=== PATIENT | female | born 1935 | race Caucasian/White ===

== ENCOUNTER → 2017-10-05 | Outpatient (CLI) | payer OTHER | LOC: FIMAGING 14:54 | PROVIDERS: ATTEND Internal Medicine | DX: I70.202 Unspecified atherosclerosis of native arteries of extremities, left leg (principal); E11.9 Type 2 diabetes mellitus without complications ==

== ENCOUNTER 2017-10-24 11:01 | Observation (INO) | payer OTHER ==
[2017-10-24] MEDS ORDERED: diphenhydrAMINE 25 MG CAP PO ONE (11:32)
[2017-10-24] MEDS ORDERED: GLUCAGON HCL 1 MG VIAL IVP PRN (11:48)
[2017-10-24] MEDS ORDERED: PROTAMINE SULFATE 50 MG/5 ML VIAL IVP PRN (11:48)
[2017-10-24] MEDS ORDERED: MEPERIDINE 25 MG/ML SYR IVP PRN (11:48)
[2017-10-24] MEDS ORDERED: NALOXONE HCL 0.4 MG/ML INJ IVP PRN (11:48)
[2017-10-24] MEDS ORDERED: ALTEPLASE 2 MG VIAL IVP PRN (11:48)
[2017-10-24] MEDS ORDERED: FLUMAZENIL 0.5 MG/5 ML MDV IVP PRN (11:48)
[2017-10-24] MEDS ORDERED: HEPARIN 10,000 UNIT/10 ML MDV (1,000 UNIT/ML) IVP PRN (11:48)
[2017-10-24] MEDS ORDERED: MIDAZOLAM 2 MG/2 ML VIAL IVP PRN (11:48)
[2017-10-24] MEDS ORDERED: fentaNYL 100 MCG/2 ML INJ IVP PRN (11:48)
[2017-10-24 12:00] LABS: INR 1.11 (0.83-1.16); PROTIME(PATIENT) 14.5 SEC (12.0-15.0)
[2017-10-24] MEDS ORDERED: NS 1,000 ML IV SCH (12:00)
[2017-10-24] MEDS ORDERED: ONDANSETRON 4 MG/2 ML VIAL ONE (12:33)
[2017-10-24] MEDS ORDERED: IOPAMIDOL (ISOVUE-300) 100 ML BTL ONE ×2 (12:48→14:16)
--- NOTE | 2017-10-24 13:05 | PDPROPOC ---
Sedation Plan of Care Sedation Plan of Care: vital signs stable, mental status noted, patient educated of risks, benefits, alternatives, patient can tolerate sedation ASA Classification: ASA 3 Planned drugs: fentanyl, midazolam Mallampati Score: Class 2 Mallampati Reference Image: Patient passed 3-3-2 rule?: Yes
--- NOTE | 2017-10-24 13:10 | PDGENHP ---
History & Physical Chief Complaint: LLE SORE AND POOR CAPILLARY REFILL History of Present Illness: US DOPPLER SHOWS MULTILEVEL STRICTURES IN LT SFA. DECENT RUNOFF. NON-HEALING ULCER. ISCHEMIC LOOKING TOES. Pertinent Past, Social, Family History: TYPE II DM. BILATERAL KNEE REPLACEMENT. HYSTERECTOMY. CHOLECYSTECTOMY. Relevant Physical Exam: ULCER AT LT LATERAL HEEL. POOR CAP REFILL. Cardiorespiratory Assessment: RRR. CTA
[2017-10-24] MEDS ORDERED: HEPARIN 10,000 UNIT/10 ML MDV (1,000 UNIT/ML) ONE (14:35)
[2017-10-24] MEDS ORDERED: ALTEPLASE 2 MG VIAL ONE ×2 (14:45→14:51)
[2017-10-24] MEDS ORDERED: ABCIXIMAB 10 MG/5 ML VIAL ONE (14:46)
[2017-10-24] MEDS ORDERED: ONDANSETRON 4 MG/2 ML VIAL IVP PRN (15:15)
[2017-10-24] MEDS ORDERED: OXYCODONE/APAP 5/325 TAB PO PRN (15:15)
--- NOTE | 2017-10-24 15:36 | PDRADPN ---
Radiology Procedure Note Date of Procedure: 10/24/17 Radiologist: Eveline Sosa Anesthesia: IV Sedation Pre-op Diagnosis: LLE ULCERS Post-op Diagnosis: SAME, PVD Indication: ULCERS Procedure: LLE ANGIOGRAM, ANGIOPLASTY, TPA, REOPRO Finding(s): VERY POOR RUNOFF VIA COLLATERALS ONLY. CRITICAL STENOSIS INVOLVING ONLY COLLATERAL VESSEL THAT'S KEEPING HER FOOT ALIVE. Inf/Abcess present in the surg proc area at time of surgery?: No Complications: NONE
[2017-10-24] MEDS ORDERED: CLOPIDOGREL BISULFATE 75 MG TAB PO ONE (18:12)
--- NOTE | 2017-10-24 18:12 | SOAPPROG ---
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 RT GROIN HEMATOMA FROM MULTIPLE BLOOD THINNERS GIVEN DURING PROCEDURE. HEMATOMA STABLE, BUT PATIENT HAS MODERATE PAIN. Plan: ADMIT TO OBS FOR RT GROIN PAIN AND HEMATOMA. 10/24/17 18:11 Subjective: RT GROIN TENDERNESS AND GUARDING. Objective: Vital Signs Temp Pulse Resp BP Pulse Ox 99.0 C H 89 12 138/51 H 100 10/24/17 11:51 10/24/17 11:51 10/24/17 11:51 10/24/17 15:16 10/24/17 15:16 Laboratory Results 10/24/17 11:42 10/24/17 11:42 10/23/17 10/24/17 10/25/17 05:59 05:59 05:59 Intake Total 525 Balance 525 PT 14.5 SEC (12.0-15.0) 10/24/17 11:42 INR 1.11 (0.83-1.16) 10/24/17 11:42 FEM STOP OFF NO EXPANDING HEMATOMA, BUT SIGNIFICANT TENDERNESS. PULSES UNCHANGED. ICD10 Worksheet Patient Problems: Problems Problem Status Onset Peripheral vascular disease due to secondary diabetes Acute Peripheral vascular disease of extremity with claudication Acute
[2017-10-25 08:26] VITALS: BP 149/56; PULSE 61; RESP 16; TEMP 98.1; O2SAT 99
[2017-10-25] MEDS ORDERED: CLOPIDOGREL BISULFATE 75 MG TAB PO SCH (09:00)
--- NOTE | 2017-10-25 09:17 | SOAPPROG ---
SOAP Progress Note Assessment/Plan: Assessment: 82 FEMALE WITH RT FOOT ISCHEMIA AND LIMITING CLAUDICATION/ SEEN AFTER IR ANGIOPLASTY FOOT VIABLE BUT WITH DEPENDENT RUBOR, NO PALPABLE PEDAL PULSES ON RT BUT EXCELLENT PULSES ON LEFT ANGIO SHOWS VERY MINIMAL RUNOFF FOR LIMB SALVAGE BYPASS PT AWARE THAT AMPUTATION MAY BECOME NECESSARY Plan:EVAL FOR FEM-TIB 10/25/17 09:13 Objective: Vital Signs Temp Pulse Resp BP Pulse Ox 36.7 C 61 16 149/56 H 99 10/25/17 08:00 10/25/17 08:00 10/25/17 08:00 10/25/17 08:00 10/25/17 08:00 Laboratory Results 10/24/17 11:42 10/24/17 11:42 10/24/17 10/25/17 10/26/17 05:59 05:59 05:59 Intake Total 825 Output Total 600 Balance 225 PT 14.5 SEC (12.0-15.0) 10/24/17 11:42 INR 1.11 (0.83-1.16) 10/24/17 11:42 ICD10 Worksheet Patient Problems: Problems Problem Status Onset Peripheral vascular disease due to secondary diabetes Acute Peripheral vascular disease of extremity with claudication Acute
--- NOTE | 2017-10-25 10:12 | SOAPPROG ---
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 RT GROIN HEMATOMA FROM MULTIPLE BLOOD THINNERS GIVEN DURING PROCEDURE. HEMATOMA STABLE, BUT PATIENT HAS MODERATE PAIN. Plan: ADMIT TO OBS FOR RT GROIN PAIN AND HEMATOMA. 10/24/17 18:11 10/25/17 10:11 Challenging and high risk PVD anatomy, doing well post angioplasty. RT groin with bruising. No bulging hematoma or enlarging hematoma. Stable to D/C home today. Subjective: No complaints this morning. Has been walking about to bathroom with no significant pain. Patient is very pleased at how her foot looks and feels. Objective: Vital Signs Temp Pulse Resp BP Pulse Ox 36.7 C 61 16 149/56 H 99 10/25/17 08:00 10/25/17 08:00 10/25/17 08:00 10/25/17 08:00 10/25/17 08:00 Laboratory Results 10/24/17 11:42 10/24/17 11:42 10/24/17 10/25/17 10/26/17 05:59 05:59 05:59 Intake Total 825 Output Total 600 Balance 225 PT 14.5 SEC (12.0-15.0) 10/24/17 11:42 INR 1.11 (0.83-1.16) 10/24/17 11:42 RT groin bruising extends to pubic symphysis, but none down the leg; no bulging hematoma. No pulsatile mass. Mild pain on palpation, within normal limits. I suspect the original "hematoma" was much smaller than previously thought. LT foot color now the same as RT foot. Near complete resolution of ischemic findings. - Pending Discharge Pending Discharge Within 24 Hours: Yes Pending Discharge Date: 10/26/17 Pending Discharge Time: 11:00 ICD10 Worksheet Patient Problems: Problems Problem Status Onset Peripheral vascular disease due to secondary diabetes Acute Peripheral vascular disease of extremity with claudication Acute
== END 2017-10-25 12:00 | disposition home or self-care (01) ==
LOC: FIMAGING 11:01 → F3N 18:05
PROVIDERS: ADMIT Radiology Diagnostic Radiology; ATTEND Radiology Diagnostic Radiology
PROC: 047N3Z1 Dilation of Left Popliteal Artery using Drug-Coated Balloon, Percutaneous Approach (ICD-10-PCS; principal; 2017-10-24)
PROC: 047L3Z1 Dilation of Left Femoral Artery using Drug-Coated Balloon, Percutaneous Approach (ICD-10-PCS; principal; 2017-10-24)
DX: I77.1 Stricture of artery (principal); E11.51 Type 2 diabetes mellitus with diabetic peripheral angiopathy without gangrene; I74.3 Embolism and thrombosis of arteries of the lower extremities
CPT/HCPCS: 37224; 75710; 99152; 99153; C1725; C1760; C1769; C1892; J0130; J1644; J2250; J2405; J2997; J3010; Q9967; J2310

== ENCOUNTER → 2017-11-11 | Outpatient (CLI) | payer OTHER | LOC: FIMAGING 10:41 | PROVIDERS: ATTEND Surgery | DX: I73.9 Peripheral vascular disease, unspecified (principal) ==

== ENCOUNTER 2017-12-30 05:28 | Inpatient (IN) | payer OTHER ==
[2017-12-30] MEDS ORDERED: CLINDAMYCIN 900 MG/DEXTROSE 50 ML IV ONE (05:52)
[2017-12-30] MEDS ORDERED: LR 1,000 ML IV ONE (05:53)
[2017-12-30] MEDS ORDERED: PAPAVERINE HCL 60 MG/2 ML SDV ONE (06:44)
[2017-12-30] MEDS ORDERED: BUPIVACAINE 0.5% 30 ML SDV ONE (06:44)
[2017-12-30] MEDS ORDERED: PROTAMINE SULFATE 50 MG/5 ML VIAL IVP ONE (06:44)
[2017-12-30] MEDS ORDERED: IOTHALAMATE MEG (CONRAY) 50 ML VIAL IV ONE (06:44)
[2017-12-30] MEDS ORDERED: CLINDAMYCIN 900 MG/DEXTROSE/50 ML BAG IV ONE (06:59)
--- NOTE | 2017-12-30 07:12 | PDHPUP ---
History & Physical Update H&P update statement: This history and physical update is based on an assessment of the patient which was completed after admission or registration (within 24 hours), but prior to the surgery/procedure. H&P update: H&P reviewed & patient examined, no change in patient's condition since H&P completed
--- NOTE | 2017-12-30 07:28 | PDANEPAE ---
ANE Past Medical History - Cardiovascular History Hx Hypertension: Yes Hx Arrhythmias: No Hx Chest Pain: No Hx Coronary Artery / Peripheral Vascular Disease: No Hx CHF / Valvular Disease: No Hx Palpitations: No - Pulmonary History Hx COPD: No Hx Asthma/Reactive Airway Disease: No Hx Recent Upper Respiratory Infection: No Hx Oxygen in Use at Home: No Hx Sleep Apnea: No Sleep Apnea Screening Result - Last Documented: Negative Pulmonary History Comment: "sinus infection -all the time" - Neurologic History Hx Cerebrovascular Accident: No Hx Seizures: No Hx Dementia: No - Endocrine History Hx Diabetes: Yes Endocrine History Comment: IDDM type 2. BS runs 89-120- diet control. - Renal History Hx Renal Disorders: Yes Renal History Comment: hx of UTI's - none recent - Liver History Hx Hepatic Disorders: No - Neurological & Psychiatric Hx Hx Neurological and Psychiatric Disorders: No - Cancer History Hx Cancer: No - Congenital Disorder History Hx Congenital Disorders: No - GI History Hx Gastrointestinal Disorders: Yes Gastrointestinal History Comment: HIATAL HERNIA - Other Health History Other Health History: L leg stricture of artery- causes pain in L ft/L toes ( spasms). Bruises easily-on Plavix. non-healing sore on L heel. - Chronic Pain History Chronic Pain: Yes (L ft/L toes) - Surgical History Prior Surgeries: L leg angioplasty Dr Sosa 10-24-17;. Bilat total knees. Appy. Sherita. Neck cysts x2 excised. hammer toes -bilat ft. VIDAL,BSO. T and A age 4 ANE Review of Systems Review of Systems: - Exercise capacity METS (RN): 4 METS ANE Patient History - Allergies Allergies/Adverse Reactions: amoxicillin Allergy (Verified 12/27/17 14:43) Vomiting iodine Allergy (Verified 12/27/17 14:43) Other-Enter Comments metformin Allergy (Verified 12/27/17 14:43) Vomiting nitrofurantoin [From Macrodantin] Allergy (Verified 12/27/17 14:43) Vomiting Sulfa (Sulfonamide Antibiotics) Allergy (Verified 12/27/17 14:06) Vomiting - Home Medications Home Medications: Cholecalciferol Vit D3 [Vitamin D3 (*)] 1,000 units PO DAILY 10/24/17 [Last Taken 12/26/17] Insulin Glargine,Hum.rec.anlog [Lantus Solostar] 20 units SC DAILY@1400 [Last Taken 12/29/17 20 UNITS] Levothyroxine Sodium 75 mcg PO DAILY 10/24/17 [Last Taken 12/30/17] Losartan Potassium 100 mg PO DAILY 10/24/17 [Last Taken 12/30/17] Vit C/E/Zn/Coppr/Lutein/Zeaxan [Ocuvite Lutein & Zeaxanthin Cp] 1 each PO DAILY 10/24/17 [Last Taken 12/26/17] Omeprazole 40 mg PO DAILY PRN 12/26/17 [Last Taken 12/29/17] Pravastatin Sodium 40 mg PO DAILY 12/26/17 [Last Taken 12/26/17] - NPO status NPO Since - Liquids (Date): 12/30/17 NPO Since - Liquids (Time): 04:15 NPO Since - Solids (Date): 12/29/17 NPO Since - Solids (Time): 16:00 - Anes Hx Anes Hx: post operative nausea and vomiting - Smoking Hx Smoking Status: Never smoked - Family Anes Hx Family Hx Anesthesia Complications: NONE ANE Labs/Vital Signs - Labs Result Diagrams: 12/30/17 06:28 - Vital Signs Blood Pressure: 138/81 Heart Rate: 69 Respiratory Rate: 16 O2 Sat (%): 96 Height: 148.59 cm Weight: 60.328 kg ANE Physical Exam - Airway Neck exam: FROM Mallampati Score: Class 2 Mouth exam: dentures - Pulmonary Pulmonary: no respiratory distress, no rales or rhonchi, clear to auscultation - Cardiovascular Cardiovascular: regular rate and rhythym, no murmur, rub, or gallop ANE Anesthesia Plan Anesthesia Plan: spinal
[2017-12-30] MEDS ORDERED: PROPOFOL 200 MG/20 ML VIAL ONE ×4 (07:30→11:21)
[2017-12-30] MEDS ORDERED: ONDANSETRON 4 MG/2 ML VIAL ONE (07:37)
[2017-12-30] MEDS ORDERED: LIDOCAINE 2% 5 ML SDV ONE (07:37)
[2017-12-30] MEDS ORDERED: DEXMEDETOMIDINE IN 0.9 % NACL 100 ML IV ONE (08:30)
[2017-12-30] MEDS ORDERED: PHENYLEPHRINE HCL 100 MCG/ML SYR ONE ×2 (08:41→10:46)
[2017-12-30] MEDS ORDERED: LIDOCAINE 2% JELLY 5 ML TUBE ONE (08:54)
[2017-12-30] MEDS ORDERED: GLYCOPYRROLATE 0.2 MG/1 ML VIAL ONE ×2 (09:00→09:14)
[2017-12-30] MEDS ORDERED: epHEDrine SULFATE 10 MG/ML SYR ONE (09:16)
[2017-12-30] MEDS ORDERED: HEPARIN 10,000 UNIT/10 ML MDV (1,000 UNIT/ML) ONE (09:55)
[2017-12-30] MEDS ORDERED: THROMBIN (BOVINE) 20,000 UNIT SPRAY TP ONE (11:27)
[2017-12-30] MEDS ORDERED: fentaNYL 100 MCG/2 ML INJ IVP PRN (11:39)
[2017-12-30] MEDS ORDERED: ACETAMINOPHEN 500 MG TAB PO PRN (11:39)
[2017-12-30] MEDS ORDERED: HYDROCODONE/APAP 5/325 TAB PO PRN (11:39)
[2017-12-30] MEDS ORDERED: LR 500 ML IV PRN (11:39)
[2017-12-30] MEDS ORDERED: PROMETHAZINE HCL 25 MG/ML INJ IVP PRN ×2 (11:39→21:51)
[2017-12-30] MEDS ORDERED: ONDANSETRON 4 MG/2 ML VIAL IVP PRN (11:39)
[2017-12-30] MEDS ORDERED: ENALAPRILAT DIHYDRATE 1.25 MG/ML VIAL IVP PRN (11:39)
[2017-12-30] MEDS ORDERED: NALOXONE HCL 0.4 MG/ML INJ IVP PRN (11:39)
--- NOTE | 2017-12-30 12:24 | POSTANESTH ---
Post Anesthetic Evaluation Cardiovascular Status: Normal, Stable Respiratory Status: Normal, Stable, Similar to Pre-op Cond. Level of Consciousness/Mental Status: Can Participate in Eval, Alert and Oriented Pain Control: Adequate, Prn Tx Ordered Nausea/Vomiting Control: Adequate, Prn Tx Ordered Complications Possibly Related to Anesthesia: None Noted
[2017-12-30] MEDS ORDERED: ACETAMINOPHEN 325 MG TAB PO PRN (12:28)
[2017-12-30] MEDS ORDERED: fentaNYL 100 MCG/2 ML INJ ONE (12:35)
--- NOTE | 2017-12-30 12:38 | POSTOPPROG ---
Post Op Note Date of Operation: 12/30/17 Surgeon: Favian Schumacher Spray Painter Helper: Ellis Anesthesiologist: Aliya Anesthesia: Spinal Pre-op Diagnosis: Peripheral vascular disease Post-op Diagnosis: same Indication: Nonhealing ulcer on left heel Procedure: Fem-tib bypass graft with combo saphenous vein and gortex graft Findings: Small, but viable posterior tibial artery Inf/Abcess present in the surg proc area at time of surgery?: No Depth: Deep Incisional (Fascial) EBL: 50-100
--- NOTE | 2017-12-30 14:37 | PDMN ---
Medical Necessity Medical necessity: [facility] IP only surgery; [id number] Cardiovascular [id number] Bypass
[2017-12-30] MEDS: HYDROmorphone HCL/NS 0.5 MG/ML SYR IVP PRN ×3 (15:05→20:17)
[2017-12-30] MEDS ORDERED: NON-FORMULARY NEW DRUG (Omeprazole [Omeprazole] 40 MG) PO PRN (17:22)
[2017-12-30] MEDS ORDERED: PANTOPRAZOLE SODIUM 40 MG TAB PO PRN (17:30)
[2017-12-30] MEDS: CLOPIDOGREL BISULFATE 75 MG TAB PO SCH (20:17)
[2017-12-30] MEDS: ONDANSETRON 4 MG/2 ML VIAL IVP PRN (20:17)
[2017-12-30] MEDS: NS 1,000 ML IV SCH (22:04)
[2017-12-31] MEDS: HYDROmorphone HCL/NS 0.5 MG/ML SYR IVP PRN ×6 (00:10→23:57)
[2017-12-31] MEDS: LEVOTHYROXINE 75 MCG TAB PO SCH (05:43)
[2017-12-31] MEDS ORDERED: NON-FORMULARY NEW DRUG (Losartan Potassium [Losartan Potassium] 100 MG) PO SCH (09:00)
[2017-12-31] MEDS: CLOPIDOGREL BISULFATE 75 MG TAB PO SCH (09:44)
[2017-12-31] MEDS: PRAVASTATIN SODIUM 40 MG TAB PO SCH (09:44)
[2017-12-31] MEDS: LOSARTAN POTASSIUM 50 MG TAB PO SCH (09:52)
[2017-12-31] MEDS: APIXABAN 5 MG TAB PO SCH ×2 (09:53→20:56)
--- NOTE | 2017-12-31 11:18 | SOAPPROG ---
SOAP Progress Note Assessment/Plan: Assessment: 82 y/o female with PVD s/p L fem/tib bypass graft 12/30 S: Pain controlled. Had some vomiting last night which is now resolved. O: Alert Afebrile RRR No increase WOB LLE: dressings cdi. Faint graft pulse heard on doppler. Left foot noticeably cooler to touch than right foot. Plan: Graft with faint pulse on doppler. Still in early stages after surgery and a chance that graft will fail. Ok to get out of bed and bear weight on LLE today. Do not bend leg at knee. Plavix started yesterday, Eliquis started today. D/c mariana. Seen with Dr. Robb. 12/31/17 11:14 Objective: Vital Signs Temp Pulse Resp BP Pulse Ox 37.4 C 84 18 153/56 H 96 12/31/17 07:37 12/31/17 07:37 12/31/17 07:37 12/31/17 09:52 12/31/17 07:37 Laboratory Results 12/30/17 06:28 12/30/17 12/31/17 01/01/18 05:59 05:59 05:59 Intake Total 2275 Output Total 2925 Balance -650 ICD10 Worksheet Patient Problems: Problems Problem Status Onset Peripheral vascular disease due to secondary diabetes Acute Peripheral vascular disease of extremity with claudication Acute
[2017-12-31] MEDS: INSULIN GLARGINE 100 UNITS/ML UNIT SC SCH (13:51)
[2017-12-31] MEDS ORDERED: INSULIN GLARGINE HUM REC ANLOG 20 UNIT SC SCH (14:00)
--- NOTE | 2017-12-31 15:58 | ASMTCMCOM ---
CM Note CM Note Notes: Pt. is an 82-year-old woman admitted for a fem-tib artery stricture. Had surgery. Pt. w/ multiple medical comorbidities. PT recommending SNF vs Home w/ 24 hour supervision vs HC at this time. Pt. has two daughters listed on facesheet. CM to follow for d/c POC. Date Signed: 12/31/2017 03:57 PM Electronically Signed By:Jazmyne Tovar LCSW
[2017-12-31] MEDS: NS 1,000 ML IV SCH (17:05)
[2018-01-01] MEDS: HYDROmorphone HCL/NS 0.5 MG/ML SYR IVP PRN (03:06)
[2018-01-01] MEDS: LEVOTHYROXINE 75 MCG TAB PO SCH (05:17)
--- NOTE | 2018-01-01 09:16 | SOAPPROG ---
SOAP Progress Note Assessment/Plan: Assessment: 82 y/o female with PVD s/p L fem/tib bypass graft 12/30 S: Pain controlled. Had some vomiting last night which is now resolved. O: Alert Afebrile RRR No increase WOB LLE: dressings cdi. Faint graft pulse heard on doppler. Left foot noticeably cooler to touch than right foot. Plan: Graft with faint pulse on doppler. Still in early stages after surgery and a chance that graft will fail. Ok to get out of bed and bear weight on LLE today. Do not bend leg at knee. Plavix started yesterday, Eliquis started today. D/c peña. Seen with Dr. Robb. 12/31/17 11:14 01/01/18 09:13 Improving. Left foot much warmer than yesterday. +graft pulse with doppler. Some pain with dressing change, otherwise well controlled. Ok to continue to get out of bed, but avoid bending at the knee. Neurogenic bladder: Indwelling catheter pulled yesterday. RNs had to straight cath her several times for residual bladder volume since then. Pt up to void now, if more than 500cc residual, insert indwelling peña again. Objective: Vital Signs Temp Pulse Resp BP Pulse Ox 36.9 C 78 18 150/53 H 96 01/01/18 08:00 01/01/18 08:00 01/01/18 08:00 01/01/18 08:00 01/01/18 08:00 Laboratory Results 12/30/17 06:28 12/31/17 01/01/18 01/02/18 05:59 05:59 05:59 Intake Total 4790 Output Total 2458 0621 Balance -650 -1950 ICD10 Worksheet Patient Problems: Problems Problem Status Onset Peripheral vascular disease due to secondary diabetes Acute Peripheral vascular disease of extremity with claudication Acute
[2018-01-01] MEDS: OXYCODONE/APAP 5/325 TAB PO PRN ×2 (10:05→13:38)
[2018-01-01] MEDS: CLOPIDOGREL BISULFATE 75 MG TAB PO SCH (10:05)
[2018-01-01] MEDS: APIXABAN 5 MG TAB PO SCH ×2 (10:05→21:13)
[2018-01-01] MEDS: PRAVASTATIN SODIUM 40 MG TAB PO SCH (10:05)
[2018-01-01] MEDS: LOSARTAN POTASSIUM 50 MG TAB PO SCH (10:05)
[2018-01-01] MEDS: INSULIN GLARGINE 100 UNITS/ML UNIT SC SCH (13:39)
--- NOTE | 2018-01-01 16:41 | ASMTCMCOM ---
CM Note CM Note Notes: Therapies recommending SNF Rehab. Spke to patient and her dtr. [facility] [place], [facility] Referrals sent. Date Signed: 01/01/2018 04:40 PM Electronically Signed By:Shazia Marie LCSW
--- NOTE | 2018-01-01 19:16 | GOP ---
[f rep st] OPERATIVE REPORT DATE OF OPERATION: 12/30/2017 SURGEON: Favian Schumacher MD ROPE CLEANER: Malena Corral NP. ANESTHESIOLOGIST: Dr. Pisano. PREOPERATIVE DIAGNOSIS: Left leg ischemia with nonhealing ulcer. POSTOPERATIVE DIAGNOSIS: Left leg ischemia with nonhealing ulcer. PROCEDURE PERFORMED: Saphenous vein ultrasound evaluation with femoral/posterior tibial bypass with reverse saphenous vein and combination [place]-Wally graft. FINDINGS: The patient was found to have a short segment of posterior tibial artery which was open wi th some runoff to the foot as well as crossover runoff to the anterior dorsalis pedis artery to the f oot. Her distal SFA was completely calcified and difficult to use, but above this area, the superfic ial femoral artery was patent and soft. INDICATIONS: The patient is an 82-year-old female who is having rest pain and nonhealing ulcer for s everal weeks on her heel causing her intense pain. She has an occluded popliteal artery and occluded trifurcation vessels on angiography and had unsuccessful angioplasty. She is admitted at this time for attempt at limb salvage with a possible posterior tibial bypass. Her targets are very minimal. The risks and options have been fully discussed, including limb loss. She wishes to proceed. DESCRIPTION OF PROCEDURE: The patient was brought to the operating room where she received satisfact ory a spinal anesthetic by Dr. Pisano with some IV sedation. She was placed in the supine position an d prepped and draped in the usual sterile fashion. Both legs were prepped and draped in the usual st erile fashion. An incision was made in [place] canal in the distal thigh. Dissection extended down t hrough the subcutaneous tissue and through the fascia of Danny canal. The distal SFA and proximal p opliteal artery were dissected free and controlled with vessel loops. However, the vessel was quite rock hard at that area and the dissection extended farther cephalad, including the skin incision. Th e artery was much softer here and was dissected free and controlled with vessel loops. A short incis ion was then made in the medial aspect of the left leg just behind the medial malleolus. Dissection extended down between the tendon sheaths, and the posterior tibial artery was dissected free and cont rolled with vessel loops. It was reasonably soft in this area, although it definitely had diabetic m edial calcification, and there was return of blood flow in it. Angiography was not available, althou gh the patient is allergic to the dye. It appeared to be adequate for a trial of limb salvage bypass . Next, using ultrasound guidance, the saphenous vein was identified. It was dissected free near th e groin, and dissection extended down the thigh. However, the vein became quite small in multiple di visions as we got further down by the knee. The vein was ligated at that point and divided. It was ligated proximally, and it was distended with heparin flush and appeared to be an adequate segment, h owever, not enough to make the complete bypass, even though we were doing it from [place] canal. Dist al anastomosis was then made to the posterior tibial artery with a running 6-0 Prolene suture with a reverse saphenous vein. It appeared to function well with infusion of heparinized saline. Again, no angiogram could be done because of the patient's allergy. It was elected to combine this with a 6 m m [place]-Wally graft. End-to-end anastomosis was made to the [place]-Wally graft, and a combination graft was then tunneled subcutaneously up around the knee and into [place] canal. End-to-side anastomosis was made with a [place]-Wally graft to its superficial femoral artery creating a 1.5 cm anastomosis. Patient had been heparinized for all this. Inflow was then first established through the tanana vessel and t hen through the bypass graft. The suture lines appeared to be hemostatic, and there was dopplerable flow in the foot and a good palpable flow in the posterior tibial artery below the anastomosis. Hepa rin was partially reversed with protamine. The wounds were sprayed with some topical thrombin and cl osed in layers using 2-0 and 3-0 Vicryl running sutures for the subcutaneous tissue and skin jonathan for the skin. All wounds were infiltrated with 0.5% Marcaine. She tolerated the procedure well and was taken to the recovery room in satisfactory condition. Postoperative, she had a palpable pulse in the graft and pink toes with good capillary filling. /[id number]/MODL
--- NOTE | 2018-01-01 19:23 | SOAPPROG ---
SOAP Progress Note Assessment/Plan: Assessment: for full details, please see Lynsey's note. Foot warmer today. Pulses with dopler Plan: 01/01/18 19:23 Objective: Vital Signs Temp Pulse Resp BP Pulse Ox 36.9 C 76 16 129/46 H 92 01/01/18 15:32 01/01/18 15:32 01/01/18 15:32 01/01/18 15:32 01/01/18 15:32 Laboratory Results 12/30/17 06:28 12/31/17 01/01/18 01/02/18 05:59 05:59 05:59 Intake Total 2275 Output Total 6427 0800 1025 Wbyohlz -650 -1950 -1025 ICD10 Worksheet Patient Problems: Problems Problem Status Onset Peripheral vascular disease due to secondary diabetes Acute Peripheral vascular disease of extremity with claudication Acute
[2018-01-02] MEDS: OXYCODONE/APAP 5/325 TAB PO PRN ×3 (02:45→16:19)
[2018-01-02] MEDS: LEVOTHYROXINE 75 MCG TAB PO SCH (06:08)
[2018-01-02] MEDS: CLOPIDOGREL BISULFATE 75 MG TAB PO SCH (08:38)
[2018-01-02] MEDS: APIXABAN 5 MG TAB PO SCH ×2 (08:39→22:48)
[2018-01-02] MEDS: LOSARTAN POTASSIUM 50 MG TAB PO SCH (08:40)
[2018-01-02] MEDS: PRAVASTATIN SODIUM 40 MG TAB PO SCH (08:42)
--- NOTE | 2018-01-02 10:11 | SOAPPROG ---
SOAP Progress Note Assessment/Plan: Assessment: 82 y/o female with PVD s/p L fem/tib bypass graft 12/30 S: Pain controlled. Had some vomiting last night which is now resolved. O: Alert Afebrile RRR No increase WOB LLE: dressings cdi. Faint graft pulse heard on doppler. Left foot noticeably cooler to touch than right foot. Plan: Graft with faint pulse on doppler. Still in early stages after surgery and a chance that graft will fail. Ok to get out of bed and bear weight on LLE today. Do not bend leg at knee. Plavix started yesterday, Eliquis started today. D/c peña. Seen with Dr. Robb. 12/31/17 11:14 01/01/18 09:13 Improving. Left foot much warmer than yesterday. +graft pulse with doppler. Some pain with dressing change, otherwise well controlled. Ok to continue to get out of bed, but avoid bending at the knee. Neurogenic bladder: Indwelling catheter pulled yesterday. RNs had to straight cath her several times for residual bladder volume since then. Pt up to void now, if more than 500cc residual, insert indwelling peña again. 01/02/18 10:08 Graft pulse slightly fainter today. Left foot slightly cooler to touch today. Left thigh dressings taken down. Incisions cdi. Tender to palpation at left ankle incision. Afebrile. Continue indwelling catheter for neurogenic bladder. Objective: Vital Signs Temp Pulse Resp BP Pulse Ox 36.6 C 70 18 145/63 H 99 01/02/18 07:57 01/02/18 07:57 01/02/18 07:57 01/02/18 08:40 01/02/18 07:57 Laboratory Results 12/30/17 06:28 01/01/18 01/02/18 01/03/18 05:59 05:59 05:59 Output Total 1950 9497 Balance -1950 -1375 ICD10 Worksheet Patient Problems: Problems Problem Status Onset Peripheral vascular disease due to secondary diabetes Acute Peripheral vascular disease of extremity with claudication Acute
[2018-01-02] MEDS: ONDANSETRON 4 MG/2 ML VIAL IVP PRN (11:44)
[2018-01-02] MEDS: INSULIN GLARGINE 100 UNITS/ML UNIT SC SCH (13:49)
[2018-01-02] MEDS ORDERED: diphenhydrAMINE 25 MG CAP PO PRN (15:47)
[2018-01-03] MEDS: OXYCODONE/APAP 5/325 TAB PO PRN ×2 (00:19→14:50)
[2018-01-03] MEDS: ONDANSETRON 4 MG/2 ML VIAL IVP PRN ×2 (00:20→14:44)
[2018-01-03] MEDS: LEVOTHYROXINE 75 MCG TAB PO SCH (06:36)
[2018-01-03] MEDS: PRAVASTATIN SODIUM 40 MG TAB PO SCH (08:29)
[2018-01-03] MEDS: LOSARTAN POTASSIUM 50 MG TAB PO SCH (08:30)
[2018-01-03] MEDS: APIXABAN 5 MG TAB PO SCH ×2 (08:30→20:44)
[2018-01-03] MEDS: CLOPIDOGREL BISULFATE 75 MG TAB PO SCH (08:30)
[2018-01-03] MEDS: INSULIN GLARGINE 100 UNITS/ML UNIT SC SCH (13:49)
[2018-01-03] MEDS ORDERED: oxyCODONE IR 5 MG TAB PO PRN (15:25)
--- NOTE | 2018-01-03 16:01 | SOAPPROG ---
SOAP Progress Note Assessment/Plan: Assessment/Plan: 82 Y F s/p fem tib bypass. hx nonhealing calcaneal ulcer. POD# 4. Pedal pulse audible on doppler. Foot warm. Inc's cdi. Rangel in place for retention. Heel raised off bed with schuler boot. Has worked with PT/OT and been oob. Changed percocet to oxy IR--patient thinking tylenol causing nausea. Dispo: patient open to idea of SNF--especially if it can be one close to her daughter near [place]. Possibly ready tomorrow. Will d/w Dr. Schumacher. S: c/o foot spasm when oob of bed for a long time this am. now in bed and resolved. nausea improved with zofran. low appetite. O: see above/ alert, no wob, rrr, abd soft, inc cdi, dp pulse on doppler, foot warm 01/03/18 15:57 Objective: Vital Signs Temp Pulse Resp BP Pulse Ox 36.4 C 83 16 138/54 H 93 01/03/18 11:14 01/03/18 11:14 01/03/18 11:14 01/03/18 11:14 01/03/18 11:14 Laboratory Results 12/30/17 06:28 01/02/18 01/03/18 01/04/18 05:59 05:59 05:59 Intake Total 850 Output Total 1375 600 Balance -1375 250 ICD10 Worksheet Patient Problems: Problems Problem Status Onset Peripheral vascular disease due to secondary diabetes Acute Peripheral vascular disease of extremity with claudication Acute
[2018-01-04] MEDS: LEVOTHYROXINE 75 MCG TAB PO SCH (05:14)
[2018-01-04] MEDS: APIXABAN 5 MG TAB PO SCH (08:35)
[2018-01-04] MEDS: LOSARTAN POTASSIUM 50 MG TAB PO SCH (08:35)
[2018-01-04] MEDS: PRAVASTATIN SODIUM 40 MG TAB PO SCH (08:35)
[2018-01-04] MEDS: CLOPIDOGREL BISULFATE 75 MG TAB PO SCH (08:35)
[2018-01-04] MEDS ORDERED: BISACODYL 10 MG SUPP PR PRN (09:41)
[2018-01-04] MEDS ORDERED: MAGNESIUM HYDROXIDE 30 ML UDCUP PO PRN (09:41)
[2018-01-04] MEDS ORDERED: POLYETHYLENE GLYCOL 3350 17 GM PKT PO PRN (09:41)
[2018-01-04] MEDS ORDERED: NEOMY SULF/BACITRAC ZN/POLY 30 GM OINTTUBE TP SCH (12:00)
[2018-01-04 12:45] VITALS: BP 100/44
--- NOTE | 2018-01-04 12:49 | SOAPPROG ---
SOAP Progress Note Assessment/Plan: Assessment: 82 y/o female with PVD s/p L fem/tib bypass graft 12/30 S: Pain controlled. Had some vomiting last night which is now resolved. O: Alert Afebrile RRR No increase WOB LLE: dressings cdi. Faint graft pulse heard on doppler. Left foot noticeably cooler to touch than right foot. Plan: Graft with faint pulse on doppler. Still in early stages after surgery and a chance that graft will fail. Ok to get out of bed and bear weight on LLE today. Do not bend leg at knee. Plavix started yesterday, Eliquis started today. D/c peña. Seen with Dr. Robb. 12/31/17 11:14 01/01/18 09:13 Improving. Left foot much warmer than yesterday. +graft pulse with doppler. Some pain with dressing change, otherwise well controlled. Ok to continue to get out of bed, but avoid bending at the knee. Neurogenic bladder: Indwelling catheter pulled yesterday. RNs had to straight cath her several times for residual bladder volume since then. Pt up to void now, if more than 500cc residual, insert indwelling peña again. 01/02/18 10:08 Graft pulse slightly fainter today. Left foot slightly cooler to touch today. Left thigh dressings taken down. Incisions cdi. Tender to palpation at left ankle incision. Afebrile. Continue indwelling catheter for neurogenic bladder. 01/04/18 12:47 LLE Graft pulse still faint on doppler. Foot warm. Still having pain, but oxy helping. Blister on superior most incision. Neosporin to blister with Meplex dressing. Meplex dressing to L heel wound as well. Plan for discharge to [facility] today. D/c peña. Objective: Vital Signs Temp Pulse Resp BP Pulse Ox 36.6 C 79 16 100/44 L 93 01/04/18 12:00 01/04/18 12:00 01/04/18 12:00 01/04/18 12:00 01/04/18 12:00 Laboratory Results 12/30/17 06:28 01/03/18 01/04/18 01/05/18 05:59 05:59 05:59 Intake Total 850 Output Total 600 450 450 Balance 250 -450 -450 ICD10 Worksheet Patient Problems: Problems Problem Status Onset Peripheral vascular disease due to secondary diabetes Acute Peripheral vascular disease of extremity with claudication Acute
--- NOTE | 2018-01-04 12:57 | PDIAF ---
- Diagnosis Code Status: Full Code - Medication Management Discharge Medications: Medications to Continue on Transfer Cholecalciferol Vit D3 [Vitamin D3 (*)] 1,000 units PO DAILY 10/24/17 [Last Taken 12/26/17] Insulin Glargine,Hum.rec.anlog [Lantus Solostar] 20 units SC DAILY@1400 [Last Taken 12/29/17 20 UNITS] Levothyroxine Sodium 75 mcg PO DAILY 10/24/17 [Last Taken 12/30/17] Losartan Potassium 100 mg PO DAILY 10/24/17 [Last Taken 12/30/17] Vit C/E/Zn/Coppr/Lutein/Zeaxan [Ocuvite Lutein & Zeaxanthin Cp] 1 each PO DAILY 10/24/17 [Last Taken 12/26/17] Clopidogrel Bisulfate [Plavix (*)] 75 mg PO DAILY tab 10/25/17 [Last Taken ] Omeprazole 40 mg PO DAILY PRN 12/26/17 [Last Taken 12/29/17] Pravastatin Sodium 40 mg PO DAILY 12/26/17 [Last Taken 12/26/17] Apixaban [Eliquis] 2.5 mg PO BID tab 01/04/18 [Last Taken Unknown] Clopidogrel Bisulfate [Plavix (*)] 75 mg PO DAILY tab 01/04/18 [Last Taken Unknown] Neomy Sulf/Bacitrac Zn/Poly [Triple Antibiotic Oint tube (*)] 1 landon TP Q6HRS oint 01/04/18 [Last Taken Unknown] oxyCODONE IR [Oxycodone Ir (*)] 5 - 10 mg PO Q4HRS PRN tab 01/04/18 [Last Taken Unknown] Discharge Medications: Refer to the Discharge Home Medication list for PRN reason. - Orders Services needed: Registered Nurse, Physical Therapy, Occupational Therapy Diet Recommendation: no restrictions on diet Diet Texture: Regular Texture Diet Wound Care Instructions: Change dressings to R medial thigh wound and R heel wound as needed. Activity/Weight Bearing Restrictions: Full weight bearing ok. Additional Instructions: You may weight bear on LLE. Try to keep knee straight as much as possible. Rx for oxycodone as needed for pain. Dressing changes as needed to L medial thigh and L heel wound. Follow up with Dr. Schumacher in one week. Please check pedal pulses, as well as graft pulse with doppler once per day. - Follow Up Care Current Providers and Referrals: Jaylene Javed DO [Primary Care Provider] - Favian Schumacher MD [Medical Doctor] - follow up in 1 week
[2018-01-04] MEDS: INSULIN GLARGINE 100 UNITS/ML UNIT SC SCH (14:00)
--- NOTE | 2018-01-04 15:58 | ASDISCHSUM ---
Discharge Information Plan Status:SNF Medically Cleared to Leave:01/04/2018 Discharge Date:01/04/2018 03:37 PM D/C Disposition:[facility] Facility ADT D/C Disposition:[facility] Facility Projected Discharge Date:01/04/2018 11:00 AM Transportation at D/C: Discharge Delay Reason: Follow-Up Date:01/04/2018 11:00 AM Discharge Slot: Final Diagnosis: Placement Information Referral Type:*Assisted/SNF Referral ID:[id number] Provider Name:[facility] Address 1:[address] Address 2: City:[place] Selection Factors: State:[place] Patient Contact Information Contact Name:DORA Relationship:Daughter Address: Work Phone: [place] [facility] [place] Phone: [facility] Code: Email: Financial Information Financial Class:Medicare Primary Plan Desc:MEDICARE INPATIENT Primary Plan Number:[id number] Secondary Plan Desc:[facility] Secondary Plan Number:[id number] Assessment Information [facility] CM Progress Note CM Note CM Note Notes: Pt. is an 82-year-old woman admitted for a fem-tib artery stricture. Had surgery. Pt. w/ multiple medical comorbidities. PT recommending SNF vs Home w/ 24 hour supervision vs HC at this time. Pt. has two daughters listed on facesheet. CM to follow for d/c POC. Date Signed: 12/31/2017 03:57 PM Electronically Signed By:REGINALDO BlanchardW [facility] CM Progress Note CM Note CM Note Notes: Therapies recommending SNF Rehab. Spke to patient and her dtr. Patient willing to go to SNF Rehab: 1st [facility], 2. [facility], 3. [facility]. Referrals sent. Date Signed: 01/01/2018 04:40 PM Electronically Signed By:Shazia Marie LCSW Case Management Discharge Plan Note Case Management Discharge Discharge Order Complete? Answers: Yes Patient to Obtain Answers: Other Notes: [facility] Medications Transportation Arranged Answers: Other Notes: [facility] EMTALA Complete Answers: No Case Management Transport Answers: Yes Form Complete Faxed Final Orders Answers: Yes Agency/Facility Transfer Answers: Yes Report Printed & Faxed to Receiving Agency Family Notified Answers: Yes Discharge Comments Notes: CM spoke w/ LUL Hagen regarding d/c POC. Pt is being discharged today to [facility]. DC orders sent to [facility]. CM provided LUL Hagen w/ phone number to give report. CM available for changes. [facility] Date Signed: 01/04/2018 03:57 PM Electronically Signed By:LEÓN Frazier Intervention Information Intervention Type:*IM-Signed Date of Service:01/04/2018 03:42 PM Patient Type:Inpatient Staff Member:Celsa Figueroa Hours: Discipline: Severity: Comment:
[2018-01-04] MEDS ORDERED: SENNOSIDES/DOCUSATE SODIUM TAB PO SCH (21:00)
== END 2018-01-04 15:37 | DRG 254 ==
LOC: F2W 05:28 → F3N 05:47 → F3E 13:48
PROVIDERS: ADMIT Surgery; ATTEND Surgery
PROC: 04U Lower Arteries, Supplement (ICD-10-PCS; principal; 2017-12-30 07:15)
PROC: 06BQ0ZZ Excision of Left Saphenous Vein, Open Approach (ICD-10-PCS; principal; 2017-12-30 07:15)
PROC: 041L0JN Bypass Left Femoral Artery to Posterior Tibial Artery with Synthetic Substitute, Open Approach (ICD-10-PCS; principal; 2017-12-30 07:15)
DX: E11.51 Type 2 diabetes mellitus with diabetic peripheral angiopathy without gangrene (principal); I73.9 Peripheral vascular disease, unspecified; E11.621 Type 2 diabetes mellitus with foot ulcer; L97.529 Non-pressure chronic ulcer of other part of left foot with unspecified severity; I10 Essential (primary) hypertension; M06.9 Rheumatoid arthritis, unspecified; N31.9 Neuromuscular dysfunction of bladder, unspecified; Z79.4 Long term (current) use of insulin; Z96.653 Presence of artificial knee joint, bilateral
CPT/HCPCS: 97116-GP; 97162-GP; 97165-GO; 97530-GO; 97530-GP; 97535-GO; C1768; G8978-GP-CL; G8979-GP-CJ; G8987-GO-CL; G8988-GO-CJ; J1170; J1644; J1815; J2370; J2405; J2440; J2550; J2704; J2720; J3010; Q9961

== ENCOUNTER → 2018-01-25 | Outpatient (CLI) | payer OTHER ==
[~2018-01-25] MED LIST: IOPAMIDOL (ISOVUE 370) 100 ML BTL IV ONE
== END ==
LOC: FIMAGING 13:20
PROVIDERS: ATTEND Surgery
DX: T82.868A Thrombosis due to vascular prosthetic devices, implants and grafts, initial encounter (principal); I70.203 Unspecified atherosclerosis of native arteries of extremities, bilateral legs
CPT/HCPCS: 75635; Q9967

== ENCOUNTER 2018-02-23 08:39 | Inpatient (IN) | payer OTHER ==
[2018-02-23] MEDS ORDERED: ceFAZolin 2 GM/SWFI 2 GM/20 ML SYR IVP ONE (08:52)
[2018-02-23] MEDS ORDERED: LR 1,000 ML IV ONE (08:53)
[2018-02-23 09:58] LABS: PLATELET COUNT 362 10^3/uL (150-400)
[2018-02-23] MEDS ORDERED: ceFAZolin 2 GM/DEXTROSE 100 ML IV ONE (10:15)
[2018-02-23] MEDS ORDERED: ceFAZolin 2 GM in D5W 100 ML IV ONE (10:15)
--- NOTE | 2018-02-23 10:54 | PDANEPAE ---
ANE Past Medical History - Cardiovascular History Hx Hypertension: Yes Hx Arrhythmias: No Hx Chest Pain: No Hx Coronary Artery / Peripheral Vascular Disease: No Hx CHF / Valvular Disease: No Hx Palpitations: No Cardiovascular History Comment: HYPERLIPIDEMIA - Pulmonary History Hx COPD: No Hx Asthma/Reactive Airway Disease: No Hx Recent Upper Respiratory Infection: No Hx Oxygen in Use at Home: No Hx Sleep Apnea: No Sleep Apnea Screening Result - Last Documented: Negative Pulmonary History Comment: "sinus infection -all the time" - Neurologic History Hx Cerebrovascular Accident: No Hx Seizures: No Hx Dementia: No - Endocrine History Hx Diabetes: Yes Hypothyroid: Yes Hyperthyroid: No Obesity: no Endocrine History Comment: IDDM type 2 - Renal History Hx Renal Disorders: Yes Renal History Comment: hx of UTI's - none recent. NEUROGENIC BLADDER - Liver History Hx Hepatic Disorders: No - Neurological & Psychiatric Hx Hx Neurological and Psychiatric Disorders: No - Cancer History Hx Cancer: No - Congenital Disorder History Hx Congenital Disorders: No - GI History GERD: moderate Hx Gastrointestinal Disorders: Yes Gastrointestinal History Comment: HIATAL HERNIA - Other Health History Other Health History: L leg stricture of artery- causes pain in L ft/L toes ( spasms). Bruises easily-on Plavix. non-healing sore on L heel. POLYMYALGIA RHEUMATICA - Chronic Pain History Chronic Pain: Yes (L ft/L toes) - Surgical History Prior Surgeries: 12/30/17 L FEMORAL-TIBIAL BYPASS. L leg angioplasty Dr Sosa 10-24;. Bilat total knees. Appy. Sherita. Neck cysts x2 excised. hammer toes - bilat ft. VIDAL,BSO. T and A age 4 ANE Review of Systems Review of Systems: - Exercise capacity METS (RN): 3 METS - Systems Muscolosketal: Reports: calf pain ANE Patient History - Allergies Allergies/Adverse Reactions: amoxicillin Allergy (Verified 12/27/17 14:43) Vomiting iodine Allergy (Verified 12/27/17 14:43) Other-Enter Comments metformin Allergy (Verified 12/27/17 14:43) Vomiting nitrofurantoin [From Macrodantin] Allergy (Verified 12/27/17 14:43) Vomiting Sulfa (Sulfonamide Antibiotics) Allergy (Verified 12/27/17 14:06) Vomiting - Home Medications Home Medications: Cholecalciferol Vit D3 [Vitamin D3 (*)] 1,000 units PO DAILY 10/24/17 [Last Taken 02/22/18] Insulin Glargine,Hum.rec.anlog [Lantus Solostar] 20 units SC DAILY@1400 [Last Taken 02/22/18] Levothyroxine Sodium 75 mcg PO DAILY 10/24/17 [Last Taken 02/22/18] Losartan Potassium 100 mg PO DAILY 10/24/17 [Last Taken 02/22/18] Vit C/E/Zn/Coppr/Lutein/Zeaxan [Ocuvite Lutein & Zeaxanthin Cp] 1 each PO DAILY 10/24/17 [Last Taken 02/21/18] Omeprazole 40 mg PO DAILY PRN 12/26/17 [Last Taken 02/22/18] Pravastatin Sodium 40 mg PO DAILY 12/26/17 [Last Taken 02/22/18] Gabapentin 02/23/18 [Last Taken 1 Week Ago ~02/16/18] Pregabalin [Lyrica 50mg (*)] 02/23/18 [Last Taken 02/21/18] - NPO status NPO Since - Liquids (Date): 02/23/18 NPO Since - Liquids (Time): 07:45 NPO Since - Solids (Date): 02/22/18 NPO Since - Solids (Time): 17:00 - Smoking Hx Smoking Status: Never smoked - Family Anes Hx Family Hx Anesthesia Complications: NONE ANE Labs/Vital Signs - Labs Result Diagrams: 02/23/18 09:40 02/23/18 09:40 - Vital Signs Blood Pressure: 194/72 Heart Rate: 78 Respiratory Rate: 14 O2 Sat (%): 97 Height: 177.8 cm Weight: 59.421 kg ANE Physical Exam - Airway Neck exam: decreased ROM Mallampati Score: Class 3 Mouth exam: normal dental/mouth exam - Pulmonary Pulmonary: no respiratory distress, no rales or rhonchi, clear to auscultation - Cardiovascular Cardiovascular: regular rate and rhythym, no murmur, rub, or gallop - ASA Status ASA Status: III ANE Anesthesia Plan Anesthesia Plan: general endotracheal anesthesia Total IV Anesthesia: No
[2018-02-23] MEDS ORDERED: BUPIVACAINE 0.25% 30 ML SDV ONE (11:06)
[2018-02-23] MEDS ORDERED: SCOPOLAMINE HYDROBROMIDE 1 MG/3 DAYS PATCH TD ONE (11:18)
[2018-02-23] MEDS: SCOPOLAMINE HYDROBROMIDE 1 MG/3 DAYS PATCH TD SCH (11:20)
[2018-02-23] MEDS ORDERED: REMIFENTANIL HCL 1 MG VIAL ONE (11:21)
[2018-02-23] MEDS ORDERED: fentaNYL 100 MCG/2 ML INJ ONE ×2 (11:22→12:34)
[2018-02-23] MEDS ORDERED: PROPOFOL 200 MG/20 ML VIAL ONE (11:22)
[2018-02-23] MEDS ORDERED: PROPOFOL/EMULSION 500 MG/50 ML BOTTLE IV ONE (11:22)
[2018-02-23] MEDS ORDERED: ONDANSETRON 4 MG/2 ML VIAL ONE (11:23)
[2018-02-23] MEDS ORDERED: SUCCINYLCHOLINE CHLORIDE 200 MG/10 ML SYR IVP ONE (11:24)
[2018-02-23] MEDS ORDERED: DEXAMETHASONE 4 MG/ML VIAL ONE (11:24)
[2018-02-23] MEDS ORDERED: ROCURONIUM 50 MG/5 ML VIAL ONE (11:31)
[2018-02-23] MEDS ORDERED: LIDOCAINE 2% 5 ML SDV ONE (11:32)
[2018-02-23] MEDS ORDERED: PHENYLEPHRINE HCL 100 MCG/ML SYR ONE (11:40)
[2018-02-23] MEDS ORDERED: oxyCODONE IR 5 MG TAB PO PRN (12:19)
[2018-02-23] MEDS ORDERED: NALOXONE HCL 0.4 MG/ML INJ IVP PRN ×2 (12:19→13:13)
[2018-02-23] MEDS ORDERED: ONDANSETRON 4 MG/2 ML VIAL IVP PRN (12:19)
[2018-02-23] MEDS ORDERED: ACETAMINOPHEN 500 MG TAB PO PRN (12:19)
[2018-02-23] MEDS ORDERED: fentaNYL 100 MCG/2 ML INJ IVP PRN (12:19)
[2018-02-23] MEDS ORDERED: PHENYLEPHRINE HCL 100 MCG/ML SYR IVP PRN (12:19)
[2018-02-23] MEDS ORDERED: LR 500 ML IV PRN (12:19)
[2018-02-23] MEDS ORDERED: HYDROCODONE/APAP 5/325 TAB PO PRN (12:19)
[2018-02-23] MEDS ORDERED: HYDROmorphONE/DILAUDID 6 MG/30 ML PCA IV PRN (13:13)
--- NOTE | 2018-02-23 13:13 | POSTOPPROG ---
Post Op Note Date of Operation: 02/23/18 Surgeon: Favian Schumacher Compensation And Benefits Analyst: Ellis Anesthesiologist: Wyatt Anesthesia: GET(General Endotracheal) Pre-op Diagnosis: Peripheral vascular disease Post-op Diagnosis: same Indication: Ischemic foot, failed fem-tib bypass graft Procedure: Left BKA Findings: Calcified arterial graft, good venous blood flow Inf/Abcess present in the surg proc area at time of surgery?: No Depth: Deep Incisional (Fascial) EBL: 50-100 Specimen(s): Left BKA
[2018-02-23] MEDS ORDERED: ACETAMINOPHEN 325 MG TAB PO PRN (13:15)
--- NOTE | 2018-02-23 14:38 | POSTANESTH ---
Post Anesthetic Evaluation Cardiovascular Status: Normal, Stable Respiratory Status: Normal, Stable Level of Consciousness/Mental Status: Can Participate in Eval Pain Control: Adequate, Prn Tx Ordered Nausea/Vomiting Control: Adequate, Prn Tx Ordered Complications Possibly Related to Anesthesia: None Noted
--- NOTE | 2018-02-23 16:28 | PDMN ---
Medical Necessity Medical necessity: IP surgery per [facility] cpt 32895 L VALENTINAA
--- NOTE | 2018-02-23 19:52 | SOAPPROG ---
SOAP Progress Note Assessment/Plan: Assessment: Postop doing quite well after left BKA. No complaints of pain Afebrile/vital signs stable/voiding okay Plan: PT in the a.m. 02/23/18 19:51 Objective: Vital Signs Temp Pulse Resp BP Pulse Ox 36.9 C 84 18 146/64 H 89 L 02/23/18 17:30 02/23/18 17:30 02/23/18 17:30 02/23/18 17:30 02/23/18 17:30 Laboratory Results 02/23/18 09:40 02/23/18 09:40 02/22/18 02/23/18 02/24/18 05:59 05:59 05:59 Intake Total 860 Output Total 50 Balance 810 ICD10 Worksheet Patient Problems: Problems Problem Status Onset Peripheral vascular disease due to secondary diabetes Acute Peripheral vascular disease of extremity with claudication Acute
[2018-02-23] MEDS: morphINE SR 15 MG TAB PO SCH (22:20)
[2018-02-23] MEDS: PREGABALIN 50 MG CAP PO SCH (22:20)
[2018-02-24] MEDS: LOSARTAN POTASSIUM 50 MG TAB PO SCH (07:25)
[2018-02-24] MEDS: PREGABALIN 50 MG CAP PO SCH ×3 (07:26→22:02)
[2018-02-24] MEDS: CHOLECALCIFEROL VIT D3 1,000 UNITS TAB PO SCH (07:26)
[2018-02-24] MEDS: LEVOTHYROXINE 75 MCG TAB PO SCH (07:26)
[2018-02-24] MEDS: morphINE SR 15 MG TAB PO SCH ×2 (07:26→22:02)
[2018-02-24] MEDS: PRESERVISION AREDS2 FORMULA EYE VIT 1 EACH PO SCH (07:26)
[2018-02-24] MEDS: PRAVASTATIN SODIUM 40 MG TAB PO SCH (07:27)
[2018-02-24] MEDS ORDERED: PANTOPRAZOLE SODIUM 40 MG TAB PO PRN (09:00)
--- NOTE | 2018-02-24 14:45 | ASMTCMCOM ---
CM Note CM Note Notes: Pt is s/p a L MARIA DEL CARMEN. She lives alone in a duplex in [place]. One daughter is currently at the [facility] in [place] recovering from spinal meningitis. PT is currently recommending inpt rehab; spoke with Verito in IR and she will follow up Tuesday. Pt's RN is asking for the IR order. Discussed SNF option with pt as well if PT/OT recommend that as she progresses in therapy.She has been to [facility] in the past. She will need 3 midnights, earliest d/c would be Tuesday 02/27. CM will follow for d/c needs. Date Signed: 02/24/2018 02:44 PM Electronically Signed By:MARK Brown
[2018-02-24] MEDS: INSULIN GLARGINE 100 UNITS/ML UNIT SC SCH (15:47)
[2018-02-24] MEDS: OXYCODONE/APAP 5/325 TAB PO PRN (16:10)
--- NOTE | 2018-02-24 16:49 | SOAPPROG ---
SOAP Progress Note Assessment/Plan: Assessment: Postop doing quite well after left BKA. No complaints of pain Afebrile/vital signs stable/voiding okay Plan: PT in the a.m. 02/23/18 19:51 02/24/18 16:48 Doing okay/dressing intact and clean/afebrile/getting normal bile/pain control good Rehab soon Objective: Vital Signs Temp Pulse Resp BP Pulse Ox 36.8 C 79 16 143/47 H 98 02/24/18 16:00 02/24/18 16:00 02/24/18 16:00 02/24/18 16:00 02/24/18 16:00 Laboratory Results 02/23/18 09:40 02/23/18 09:40 02/23/18 02/24/18 02/25/18 05:59 05:59 05:59 Intake Total 1360 Output Total 50 Balance 1310 ICD10 Worksheet Patient Problems: Problems Problem Status Onset Peripheral vascular disease due to secondary diabetes Acute Peripheral vascular disease of extremity with claudication Acute
--- NOTE | 2018-02-24 22:23 | WOCRNPDOC ---
WOCRN Advanced Assessment Note - Skin Integrity Problem, Advanced Assess Left Upper Thigh Dressing Type: Mepilex Border Dressing Description: Clean/Dry, Shadowed Closure Description: Not Approximated Exudate Amount: Minimal Exudate Color: Reddish/Yellow Exudate Characteristic(s): Serosanguinous Integumentary Issue Intervention: Visualized Under Dressing Brenda Wound Tissue: Macerated, Intact Wound Bed Color: Peotone Wound Bed Constitution: Red/[place]otone - Non Granular Tissue Site Measurement - Head-to-Toe Length X Width X Depth (cm): 1x0.7x0.9 Skin Integrity Problem Comment: Patient with small wound related to a staple from a previous surgery. Patient states that a home health RN has been "taking care of it, and puting honey in it". When Mepilex pulled back, wound has been packed with 1/4" packing. Packing removed to complete measurements. Patient needed to use the restroom at this time so HOG DRIVER asked to assist patient to bathroom. LUL Michaels, going off shift, informed of plan. Dressing change supplies placed in room. Wound care will round again early next week.
[2018-02-25] MEDS: CHOLECALCIFEROL VIT D3 1,000 UNITS TAB PO SCH (08:23)
[2018-02-25] MEDS: PRESERVISION AREDS2 FORMULA EYE VIT 1 EACH PO SCH (08:23)
[2018-02-25] MEDS: PREGABALIN 50 MG CAP PO SCH ×3 (08:23→21:09)
[2018-02-25] MEDS: morphINE SR 15 MG TAB PO SCH ×2 (08:23→21:12)
[2018-02-25] MEDS: LOSARTAN POTASSIUM 50 MG TAB PO SCH (08:23)
[2018-02-25] MEDS: LEVOTHYROXINE 75 MCG TAB PO SCH (08:24)
[2018-02-25] MEDS: PRAVASTATIN SODIUM 40 MG TAB PO SCH (08:24)
[2018-02-25] MEDS ORDERED: ONDANSETRON DISINTEGRATING 4 MG TAB ONE (14:15)
[2018-02-25] MEDS ORDERED: ONDANSETRON 4 MG/2 ML VIAL IVP PRN (14:21)
[2018-02-25] MEDS ORDERED: ONDANSETRON DISINTEGRATING 4 MG TAB PO PRN (14:21)
[2018-02-25] MEDS: IBUPROFEN 200 MG TAB PO PRN ×2 (14:53→21:12)
[2018-02-25] MEDS: INSULIN GLARGINE 100 UNITS/ML UNIT SC SCH (14:53)
--- NOTE | 2018-02-25 16:39 | SOAPPROG ---
SOAP Progress Note Assessment/Plan: Assessment: Postop doing quite well after left BKA. No complaints of pain Afebrile/vital signs stable/voiding okay Plan: PT in the a.m. 02/23/18 19:51 02/24/18 16:48 Doing okay/dressing intact and clean/afebrile/getting normal bile/pain control good Rehab soon 02/25/18 16:38 Doing okay status post left BKA/afebrile/much less pain/plan is rehab eval/ dressing change in the a.m. Objective: Vital Signs Temp Pulse Resp BP Pulse Ox 36.8 C 73 16 128/43 H 98 02/25/18 15:46 02/25/18 15:46 02/25/18 15:46 02/25/18 15:46 02/25/18 15:46 Laboratory Results 02/23/18 09:40 02/23/18 09:40 02/24/18 02/25/18 02/26/18 05:59 05:59 05:59 Intake Total 1360 700 Output Total 50 Balance 1310 700 ICD10 Worksheet Patient Problems: Problems Problem Status Onset Peripheral vascular disease due to secondary diabetes Acute Peripheral vascular disease of extremity with claudication Acute
[2018-02-26] MEDS: OXYCODONE/APAP 5/325 TAB PO PRN ×2 (06:25→23:48)
[2018-02-26] MEDS: PRAVASTATIN SODIUM 40 MG TAB PO SCH (10:04)
[2018-02-26] MEDS: LEVOTHYROXINE 75 MCG TAB PO SCH (10:04)
[2018-02-26] MEDS: PRESERVISION AREDS2 FORMULA EYE VIT 1 EACH PO SCH (10:04)
[2018-02-26] MEDS: LOSARTAN POTASSIUM 50 MG TAB PO SCH (10:04)
[2018-02-26] MEDS: CHOLECALCIFEROL VIT D3 1,000 UNITS TAB PO SCH (10:04)
[2018-02-26] MEDS: PREGABALIN 50 MG CAP PO SCH ×3 (10:05→22:01)
[2018-02-26] MEDS: morphINE SR 15 MG TAB PO SCH ×2 (10:25→22:05)
[2018-02-26] MEDS ORDERED: PATCH REMOVAL 1 EA PATCH TD SCH (11:19)
--- NOTE | 2018-02-26 12:37 | SOAPPROG ---
SOAP Progress Note Assessment/Plan: Assessment: Postop doing quite well after left BKA. No complaints of pain Afebrile/vital signs stable/voiding okay Plan: PT in the a.m. 02/23/18 19:51 02/24/18 16:48 Doing okay/dressing intact and clean/afebrile/getting normal bile/pain control good Rehab soon 02/25/18 16:38 Doing okay status post left BKA/afebrile/much less pain/plan is rehab eval/ dressing change in the a.m. 02/26/18 12:37 vital signs stable/afebrile/ much less pain / stump dressing clean and dry / she has developed urinary retention requiring a Rangel Plan to rehab soon Objective: Vital Signs Temp Pulse Resp BP Pulse Ox 529.4 C H 60 16 118/47 L 100 02/26/18 11:13 02/26/18 11:13 02/26/18 11:13 02/26/18 11:13 02/26/18 11:13 Laboratory Results 02/23/18 09:40 02/23/18 09:40 02/25/18 02/26/18 02/27/18 05:59 05:59 05:59 Intake Total 700 300 Output Total 250 2825 Balance 700 50 -2825 ICD10 Worksheet Patient Problems: Problems Problem Status Onset Peripheral vascular disease due to secondary diabetes Acute Peripheral vascular disease of extremity with claudication Acute
[2018-02-26] MEDS: SCOPOLAMINE HYDROBROMIDE 1 MG/3 DAYS PATCH TD SCH (14:28)
[2018-02-26] MEDS: INSULIN GLARGINE 100 UNITS/ML UNIT SC SCH (14:29)
[2018-02-26] MEDS: IBUPROFEN 200 MG TAB PO PRN ×2 (14:58→16:20)
--- NOTE | 2018-02-26 15:52 | ASMTCMCOM ---
CM Note CM Note Notes: CM chart review. CM met with patient and family, states she understands InPt rehab will complete assessment tomorrow, she was thinking she would leave here and go to [facility]. CM placed order to [facility]. CM to follow. D/C Plan: Inpt Rehab vs SNF. Date Signed: 02/26/2018 03:51 PM Electronically Signed By:Pam Murray
--- NOTE | 2018-02-27 08:57 | SOAPPROG ---
SOAP Progress Note Assessment/Plan: Assessment: 83 y/o F s/p R BKA for PVD and failed fem/tib bypass graft POD #4 S: Laying in bed. No complaints. Pain appears to be well controlled. Has gotten up some with PT. Doesn't feel ready to go to rehab today. Thinks tomorrow she will be ready. O: Alert Afebrile RRR No increased WOB RLE: stump dressing taken down and reapplied today. Incision is cdi. Tenderness with movement. : peña cath in place for urinary retention, yellow urine. Plan: Continue to work with PT to get stronger. Continue peña. Dispo to rehab tomorrow. 02/27/18 08:54 Objective: Vital Signs Temp Pulse Resp BP Pulse Ox 36.9 C 62 19 134/65 H 95 02/27/18 08:11 02/27/18 08:11 02/27/18 08:11 02/27/18 08:11 02/27/18 08:11 Laboratory Results 02/23/18 09:40 02/23/18 09:40 02/26/18 02/27/18 02/28/18 05:59 05:59 05:59 Intake Total 300 300 Output Total 250 4317 Balance 50 -5395 ICD10 Worksheet Patient Problems: Problems Problem Status Onset Peripheral vascular disease due to secondary diabetes Acute Peripheral vascular disease of extremity with claudication Acute
[2018-02-27] MEDS: PREGABALIN 50 MG CAP PO SCH ×3 (10:05→21:12)
[2018-02-27] MEDS: CHOLECALCIFEROL VIT D3 1,000 UNITS TAB PO SCH (10:05)
[2018-02-27] MEDS: LOSARTAN POTASSIUM 50 MG TAB PO SCH (10:05)
[2018-02-27] MEDS: PRESERVISION AREDS2 FORMULA EYE VIT 1 EACH PO SCH (10:05)
[2018-02-27] MEDS: LEVOTHYROXINE 75 MCG TAB PO SCH (10:05)
[2018-02-27] MEDS: PRAVASTATIN SODIUM 40 MG TAB PO SCH (10:05)
[2018-02-27] MEDS: morphINE SR 15 MG TAB PO SCH ×2 (10:06→21:12)
[2018-02-27] MEDS: OXYCODONE/APAP 5/325 TAB PO PRN ×3 (12:07→16:24)
--- NOTE | 2018-02-27 13:31 | ASMTCMCOM ---
CM Note CM Note Notes: CM spoke to Dr. Schumacher regarding d/c POC. CM met w/ pt for dispo planning. Pt prefers to go to inpatient rehab. CM spoke to Verito at inpatient rehab. Pt would need to be seen by PT daily for pt to qualify. CM spoke to PT to relay the message that she will need to be seen daily. [facility] has accepted pt. CM to follow. Plan: TBD Date Signed: 02/27/2018 01:30 PM Electronically Signed By:LEÓN Frazier
[2018-02-27] MEDS: INSULIN GLARGINE 100 UNITS/ML UNIT SC SCH (14:36)
[2018-02-27] MEDS: IBUPROFEN 200 MG TAB PO PRN (14:54)
[2018-02-28] MEDS: IBUPROFEN 200 MG TAB PO PRN ×2 (03:31→14:13)
[2018-02-28 09:18] VITALS: BP 122/46
[2018-02-28] MEDS: PREGABALIN 50 MG CAP PO SCH (10:08)
[2018-02-28] MEDS: PRESERVISION AREDS2 FORMULA EYE VIT 1 EACH PO SCH (10:08)
[2018-02-28] MEDS: PRAVASTATIN SODIUM 40 MG TAB PO SCH (10:08)
[2018-02-28] MEDS: CHOLECALCIFEROL VIT D3 1,000 UNITS TAB PO SCH (10:08)
[2018-02-28] MEDS: LOSARTAN POTASSIUM 50 MG TAB PO SCH (10:08)
[2018-02-28] MEDS: LEVOTHYROXINE 75 MCG TAB PO SCH (10:08)
[2018-02-28] MEDS: morphINE SR 15 MG TAB PO SCH (10:09)
[2018-02-28] MEDS: OXYCODONE/APAP 5/325 TAB PO PRN ×2 (10:43→12:48)
--- NOTE | 2018-02-28 11:16 | PDIAF ---
- Diagnosis Diagnosis: PAD s/p BKA Code Status: Full Code - Medication Management Discharge Medications: Medications to Continue on Transfer Cholecalciferol Vit D3 [Vitamin D3 (*)] 1,000 units PO DAILY 10/24/17 [Last Taken 02/22/18] Insulin Glargine,Hum.rec.anlog [Lantus Solostar] 20 units SC DAILY@1400 [Last Taken 02/22/18] Levothyroxine Sodium 75 mcg PO DAILY 10/24/17 [Last Taken 02/22/18] Losartan Potassium 100 mg PO DAILY 10/24/17 [Last Taken 02/22/18] Vit C/E/Zn/Coppr/Lutein/Zeaxan [Ocuvite Lutein & Zeaxanthin Cp] 1 each PO DAILY 10/24/17 [Last Taken 02/21/18] Omeprazole 40 mg PO DAILY PRN 12/26/17 [Last Taken 02/22/18] Pravastatin Sodium 40 mg PO DAILY 12/26/17 [Last Taken 02/22/18] Pregabalin [Lyrica 50mg (*)] 50 mg PO TID 02/23/18 [Last Taken 02/22/18] morphINE SR [Ms Contin/Oramorph 15 mg (*)] 15 mg PO BID 02/23/18 [Last Taken ] Acetaminophen [Tylenol 325mg (*)] 650 mg PO Q4HRS PRN tab 02/28/18 [Last Taken Unknown] Ibuprofen [Motrin (*)] 200 - 600 mg PO Q6 PRN tab 02/28/18 [Last Taken Unknown] oxyCODONE/APAP 5/325 [Percocet 5/325 (*)] 1 - 2 tab PO Q4HRS PRN #30 tab [Last Taken Unknown] Discharge Medications: Refer to the Discharge Home Medication list for PRN reason. - Orders Services needed: Registered Nurse, Certified Regional Liaison, Physical Therapy, Occupational Therapy Diet Recommendation: no restrictions on diet, ADA 2000 consistent carb Diet Texture: Regular Texture Diet Wound Care Instructions: Ok to get BKA stump wet in shower, but avoid submerging under water like in a bath or pool. Will need to change dressing every other day or more often for saturation. Place a nonadherent layer (ie. vaseline gauze, xeroform, telfa) over incision line. Cover with 4x4 gauze. Then wrap with kerlix and EDNA wrap. Activity/Weight Bearing Restrictions: Avoid pressure over stump. May WBAT Right leg. Thanks. Additional Instructions: Ok to get BKA stump wet in shower, but avoid submerging under water like in a bath or pool. Will need to change dressing every other day or more often for saturation. Place a nonadherent layer (ie. vaseline gauze, xeroform, telfa) over incision line. Cover with 4x4 gauze. Then wrap with kerlix and EDNA wrap. - Follow Up Care Current Providers and Referrals: Jaylene Javed DO [Primary Care Provider] - Favian Schumacher MD [Medical Doctor] - follow up in 2 weeks (f/u in 10-14 days)
--- NOTE | 2018-02-28 11:25 | ASMTLACE ---
LACE Length of stay for Answers: 4-6 days current admission Acuity / Level of Answers: Yes Care: Did the patient have an inpatient admission? Comorbidities - select Answers: Diabetes (uncontrolled or all that apply controlled) Opioid dependence / Chronic pain Peripheral vascular disease Other Notes: HTN # of Emergency department Answers: 0 visits in the last 6 months Score: 14 Date Signed: 02/28/2018 11:24 AM Electronically Signed By:LEÓN Frazier
--- NOTE | 2018-02-28 11:36 | ASDISCHSUM ---
Discharge Information Plan Status:Inpatient Rehab Medically Cleared to Leave:02/28/2018 Discharge Date:02/28/2018 CM D/C Disposition: ADT D/C Disposition:[facility] IP Projected Discharge Date:02/28/2018 11:00 AM Transportation at D/C: Discharge Delay Reason: Follow-Up Date:02/28/2018 11:00 AM Discharge Slot: Final Diagnosis: Placement Information Referral Type:Rehabilitation Hospital Referral ID:[id number] Provider Name:[facility] Address 1:[address] [place] [address] Phone Number: Address 2: Fax Number: [facility]:[place] Selection Factors: State:[place] Referral Type:*Group Home/SNF Referral ID:[id number] Provider Name: Address 1: Phone Number: Address 2: Fax Number: City: Selection Factors: State: Patient Contact Information Contact Name:VALJOSE A Relationship:Daughter Address: Work Phone: City: [facility] Phone: [facility] Code: Email: Financial Information Financial Class:Medicare Primary Plan Desc:MEDICARE INPATIENT Primary Plan Number:[id number] Secondary Plan Desc:[facility] Secondary Plan Number:[id number] Assessment Information LACE LACE Length of stay for Answers: 4-6 days current admission Acuity / Level of Answers: Yes Care: Did the patient have an inpatient admission? Comorbidities - select Answers: Diabetes (uncontrolled or all that apply controlled) Opioid dependence / Chronic pain Peripheral vascular disease Other Notes: HTN # of Emergency department Answers: 0 visits in the last 6 months Score: 14 Date Signed: 02/28/2018 11:24 AM Electronically Signed By:LEÓN Frazier [facility] CM Progress Note CM Note CM Note Notes: Pt is s/p a [place] MARIA DEL CARMEN. She lives alone in a duplex in [place]. One daughter is currently at the [facility] in [place] recovering from spinal meningitis. PT is currently recommending inpt rehab; spoke with Verito in IR and she will follow up Tuesday. Pt's RN is asking for the IR order. Discussed SNF option with pt as well if PT/OT recommend that as she progresses in therapy.She has been to [facility] in the past. She will need 3 midnights, earliest d/c would be Tuesday 02/27. CM will follow for d/c needs. Date Signed: 02/24/2018 02:44 PM Electronically Signed By:MARK Brown [facility] ANTHONY Progress Note CM Note CM Note Notes: CM chart review. CM met with patient and family, states she understands InPt rehab will complete assessment tomorrow, she was thinking she would leave here and go to [facility]. CM placed order to [facility]. CM to follow. D/C Plan: Inpt Rehab vs SNF. Date Signed: 02/26/2018 03:51 PM Electronically Signed By:Pam Murray [facility] AN[facility]ON[facility] Progress Note CM Note CM Note Notes: CM spoke to Dr. Schumacher regarding d/c POC. CM met w/ pt for dispo planning. Pt prefers to go to inpatient rehab. CM spoke to Verito at inpatient rehab. Pt would need to be seen by PT daily for pt to qualify. CM spoke to PT to relay the message that she will need to be seen daily. [facility] has accepted pt. CM to follow. Plan: TBD Date Signed: 02/27/2018 01:30 PM Electronically Signed By:LEÓN Frazier Case Management Discharge Plan Note Case Management Discharge Discharge Order Complete? Answers: Yes Patient to Obtain Answers: via Family Medications Transportation Arranged Answers: Taxi - Self Pay Transport will Pick (Date 02/28/2018 02:00 PM & Time) EMTALA Complete Answers: No Case Management Transport Answers: Yes Form Complete Faxed Final Orders Answers: Yes Agency/Facility Transfer Answers: Yes Report Printed & Faxed to Receiving Agency Family Notified Answers: Yes Discharge Comments Notes: CM spoke to ADIEL Bahena and LUL Michaels regarding d/c POC. Pt is being discharged today. CM met w/ pt for dispo planning. Pt is agreeable to going to [facility] inpatient rehab. Pt is worried about her pain not being well managed. Pt will pay for her own transportation. CM arranged transportation through [employer]. CM provided LUL Michaels w/ phone number to give report. CM available for changes. Plan: [facility] inpatient rehab Date Signed: 02/28/2018 11:34 AM Electronically Signed By:LEÓN Frazier Intervention Information
[2018-02-28] MEDS: INSULIN GLARGINE 100 UNITS/ML UNIT SC SCH (13:27)
--- NOTE | 2018-03-04 20:11 | GOP ---
[f rep st] OPERATIVE REPORT DATE OF OPERATION: 02/23/2018 SURGEON: Favian Schumacher MD SPECIAL DIET COOK: Prerna Cotton PA-C. PREOPERATIVE DIAGNOSIS: Left leg ischemia and gangrene. POSTOPERATIVE DIAGNOSIS: Left leg ischemia and gangrene. PROCEDURE PERFORMED: Left below-knee amputation. FINDINGS: The patient was found to have occluded major vessels infrapopliteal. Her stump, however, appeared to be viable with intramuscular collaterals. ESTIMATED BLOOD LOSS: Less than 50 cc. DESCRIPTION OF PROCEDURE: The patient was taken to the operating room where she received satisfactor y general endotracheal anesthesia, placed in the supine position, and prepped and draped in the usual sterile fashion. A transverse incision was made in the upper leg 8 cm below the tibial tubercle. T his extended senior care down the leg on either side, and then the posterior flap was created quite long down to the lower leg. The anterior muscles were divided with electrocautery. The tibia was freed u p with the periosteal elevator and then divided with a power saw. The fibula was dissected well back above the division point of the tibia, and it two was divided with a power saw. The tibia was bevel ed 30 degrees anteriorly and smoothed off with the rasp. Dissection in the anterior and lateral comp artments freed up the anterior tibial vessels and the posterior tibial vessels. These were mostly li gated and divided, although the arterial portions were completely occluded. The posterior muscles we re divided tangentially down to the end of the posterior flap, and the lower leg was then removed. I n the popliteal space, the popliteal veins were multiply ligated and divided, as was the popliteal ar tyler which was essentially occluded at that point. The tibial nerve was infiltrated with 0.5% Marcai ne. It was tied with an 0 Vicryl well up above the transition point of the tibia, and the nerve was then divided. This was all done prior to removal of the lower leg. Hemostasis was thoroughly obtain ed with 3-0 Vicryl suture ligatures and/or hemoclips. Posterior flap was then rotated up over the en d of the tibia. The posterior muscles had been thinned out. The gastroc flap was sutured to the ant erior periosteum in the muscles of the anterior lateral compartments with interrupted 0 Vicryl suture s. Subcu was then closed with interrupted 2-0 Vicryl sutures, and the skin was closed with 3-0 Prole ne mattress sutures. The wound was infiltrated with 0.5% Marcaine. Hemostasis was assured. She severino erated the procedure well. She was taken to recovery room in good condition. There were no complica tions. /[id number]/MODL
== END 2018-02-28 14:21 | DRG 240 ==
LOC: F3N 08:39 → F3E 14:25
PROVIDERS: ADMIT Surgery; ATTEND Surgery
PROC: 0Y6J0Z1 Detachment at Left Lower Leg, High, Open Approach (ICD-10-PCS; principal; 2018-02-23 10:30)
DX: T82.868A Thrombosis due to vascular prosthetic devices, implants and grafts, initial encounter (principal); E11.52 Type 2 diabetes mellitus with diabetic peripheral angiopathy with gangrene; I10 Essential (primary) hypertension; N31.9 Neuromuscular dysfunction of bladder, unspecified; M06.9 Rheumatoid arthritis, unspecified; M81.8 Other osteoporosis without current pathological fracture; T38.0X5A Adverse effect of glucocorticoids and synthetic analogues, initial encounter; Z79.4 Long term (current) use of insulin; Z96.653 Presence of artificial knee joint, bilateral
CPT/HCPCS: 97110-GP; 97161-GP; 97166-GO; 97530-GO; 97530-GP; 97535-GO; G8978-GP-CL; G8979-GP-CJ; G8980-GP-CJ; G8987-GO-CK; G8987-GO-CL; G8988-GO-CJ; J0330; J0690; J1100; J1170; J1815; J2370; J2405; J2704; J3010

== ENCOUNTER 2018-02-28 11:16 | Inpatient (IN) | payer OTHER ==
[2018-02-28] MEDS ORDERED: OXYCODONE/APAP 5/325 TAB PO PRN (15:10)
[2018-02-28] MEDS ORDERED: ACETAMINOPHEN 325 MG TAB PO PRN (15:10)
[2018-02-28] MEDS ORDERED: BISACODYL 10 MG SUPP PR ONE (15:35)
[2018-02-28] MEDS: INSULIN GLARGINE 100 UNITS/ML UNIT SC SCH (15:55)
[2018-02-28] MEDS: oxyCODONE IR 5 MG TAB PO PRN ×2 (16:16→19:09)
[2018-02-28] MEDS: PREGABALIN 50 MG CAP PO SCH ×2 (16:16→21:00)
[2018-02-28] MEDS ORDERED: D50W 25 GM/50 ML SYR IVP PRN (16:36)
--- NOTE | 2018-02-28 17:21 | GHP ---
[f rep st] HISTORY AND PHYSICAL POST-ADMISSION PHYSICIAN EVALUATION AND REHABILITATION TREATMENT PLAN DATE OF SERVICE: 02/28/2018, time of evaluation is 1535. DATE OF ADMISSION: 02/28/2018 REFERRING FACILITY: [facility]. IMPAIRMENT GROUP: Is 5.4. DATE OF ONSET: February 23, 2018. REFERRING PHYSICIAN: Dr. Schumacher. CONSULTING PHYSICIANS: There were none. REHABILITATION DIAGNOSIS: Debility status post left xpsyn-nfe-fpmg amputation. ETIOLOGIC DIAGNOSIS: Unilateral lower limb below the knee. DATE OF SURGERY: February 23, 2018. HISTORY OF PRESENT ILLNESS: This is an 83-year-old woman with a history of peripheral vascular disease. She had a recent failed left femoral posterior tibial bypass graft with a persistent left heel ulcer, pain, and difficulty with ambulation. She ultimately decided to have an elective cnrqz-mpw-jvvh amputation which was done on 02/23/2018. Hospital course was complicated by pain, which was managed with opiate medications, and by urinary retention, for which a Rangel catheter was placed. The catheter was removed on the day of discharge, today. STUDIES/LABS IN HOSPITAL: On the day of admission, she had an elevated white blood cell count at 10.39; there was no left shift. Hemoglobin and hematocrit were low at 11.5 and 33.9. Serum chemistry showed a normal renal function and electrolytes. Blood sugar was elevated at 109 on 02/23/2018. Blood sugars were adequately controlled, generally in the range of 80s fasting, and as high as 195 in the last several days. PRECAUTIONS: She is a fall risk. ACTIVE COMORBIDITIES: She has the tier 3 comorbidity of diabetes mellitus with manifestation. PAST MEDICAL HISTORY: 1. Peripheral vascular disease. 2. Diabetes mellitus type 2. 3. Hypertension. 4. Corticosteroid-induced osteoporosis. 5. Polymyalgia rheumatica. PAST SURGICAL HISTORY: 1. Angioplasty of the left lower extremity. 2. Left femoral tibial posterior bypass graft. 3. Appendectomy. 4. Cholecystectomy. 5. 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 6. Total abdominal hysterectomy and bilateral salpingo-oophorectomy, remotely. 7. Tonsillectomy and adenoidectomy. 8. Total knee replacement bilaterally. PRE-ADMISSION MEDICATIONS: In January of this year, she was takin. Clopidogrel 75 mg p.o. daily. 2. Insulin glargine 20 units subcutaneous daily. 3. Levothyroxine 75 mcg p.o. daily. 4. Losartan 100 mg p.o. daily. 5. Ocuvite p.o. daily. 6. Pravastatin 40 mg p.o. daily. 7. Vitamin D 2000 units p.o. daily. ALLERGIES: Are listed to aspirin, hydromorphone, which caused nausea and vomiting, iodine, Macrodantin, metformin, which caused GI distress, nitrofurantoin, penicillins in general, (but she can take ampicillin), amoxicillin, and sulfa. ADMISSION MEDICATIONS: 1. Acetaminophen 650 mg p.o. q.4 hours p.r.n. 2. Cholecalciferol 1000 units p.o. daily. 3. Ibuprofen 200 to 600 mg p.o. q.6 hours p.r.n. 4. Insulin glargine 20 units subcutaneous daily at 1400. 5. Levothyroxine 75 mcg p.o. daily. 6. Losartan 100 mg p.o. daily. 7. Morphine sustained release 15 mg p.o. twice daily. 8. PreserVision 1 p.o. daily. 9. Percocet 1 to 2 p.o. q.4 hours p.r.n. 10. Pravastatin 40 mg p.o. daily. 11. Pregabalin 50 mg p.o. t.i.d. PSYCHOSOCIAL HISTORY: She lives alone. She has 4 adult children who all live in [place] and her daughter, Edith, is particularly involved in her care. She is a nonsmoker and does not use alcohol. 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 FAMILY HISTORY: Noncontributory. REVIEW OF SYSTEMS: She reports constipation times several days. She has pain and is getting increasingly uncomfortable during the exam and requests pain medication. She had urinary retention, but reports that the catheter was removed this morning prior to discharge from the hospital. She denies cough or dyspnea, fevers or chills, nausea or vomiting. She denies dysuria. She denies joint swelling or joint pain. Otherwise, a 10-point review of systems is negative. PHYSICAL EXAM: VITAL SIGNS: Blood pressure is 141/52, heart rate is 71, respiratory rate is 18, oxygen saturation is 94% on room air. Temperature is 37.1 degrees centigrade. Her weight is 55 kg, which represents approximately 5 kg loss likely due to the surgery. GENERAL: This is a well-nourished, well- developed woman who appears her chronologic age, cooperative and in no acute distress. HEENT: Extraocular movements are intact. Pupils are equal, round, reactive to light. Mucous membranes are moist. Dentition is in good condition. There are no oropharyngeal mucosal lesions noted. NECK: Supple. HEART: There is a regular rate and rhythm with a 2/6 systolic murmur at the left sternal border. There are no rubs, or gallops. LUNGS: Clear to auscultation bilaterally. ABDOMEN: Soft, nontender, nondistended with normoactive bowel sounds and no hepatosplenomegaly. EXTREMITIES: She has a left yjfvc-ukr-xsht amputation. Otherwise, there is no cyanosis, clubbing, or edema. Right dorsalis pedis pulse is 1+. NEUROLOGIC: She is alert and oriented x3. Cranial nerves II through XII are grossly intact. There is no focal weakness and sensation is intact to light touch. CURRENT LEVEL OF FUNCTION: Per the preadmission screen, she was independent with diet, feeding, and swallowing. She required minimal assist with voice cues for grooming. Bathing required minimal assist. Dressing required set up and was done seated. She required assistance for toileting and bladder and bowel management. Bed mobility required contact guard to minimal assist. Transfers required contact guard and voice cues for sit to stand. She needed minimal assist with cues for sequencing and for safety to go from bed to the chair. She used a front-wheeled walker. Seated balance required standby assist and standing balance required contact guard assist. Her endurance was fair. She was noted to have left residual limb pain with movement. On the current evaluation, there are no significant differences from the pre- admission screen. IMPRESSION: This is an 83-year-old woman with diabetes mellitus and peripheral vascular disease who had a failed xovyzfe-hs-zfpxhz bypass procedure and continued symptoms of peripheral vascular disease with a nonhealing foot ulcer and lower extremity pain. She had an elective left boqmt-aap-emlt amputation. She has come through surgery quite well, though she has needs for pain control. She is appropriate for inpatient rehabilitation where she will receive Physical and Occupational Therapy to optimize her mobility and activities of daily living. She needs the care of a nurse for wound healing, bowel and bladder, medication administration, and medication education, and she needs the care of a physician for risk for infection, pain management, and comorbid diabetes mellitus and hypertension. Her goal is to complete a rehabilitation stay and then return home with supportive services and family support. For a safe discharge, it is anticipated that she will achieve independence with grooming, modified independence for dressing, bed mobility, transfers, and mobility. Her primary means of mobility will be a wheelchair. She may require some assistance for bathing and she will likely require assistance for meal preparation, shopping, and household management. She will have therapy with Physical Therapy and Occupational Therapy for 90 minutes per day for each discipline on 5 to 7 days of the week. Her expected duration of stay is 5 to 7 days. It is anticipated that upon discharge, she will continue to benefit from home health services including nursing and physical therapy. In addition, she will benefit from an amputation support group. PLAN: 1. Impaired mobility and activities of daily living due to left mlcas-ekw-wbnp amputation: PT and OT to optimize mobility and activities of daily living towards the independent or modified independent level. 2. Pain management: Will discontinue the Percocet in order to separate the oxycodone dosing from the acetaminophen dosing and ensure that she can receive adequate oxycodone, which will be prescribed as 5 to 10 mg q.3 hours p.r.n. Additionally, will continue the scheduled sustained-release morphine at 15 mg twice daily; p.r.n. acetaminophen; and p.r.n. ibuprofen. Medications will be adjusted as needed. 3. Wound care: She will have dressing changes over the left residual limb every-other day and if it becomes saturated; it was most recently changed today. 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 This has begun to heal. Will seek Wound Care orders regarding management of this wound. 4. Diabetes mellitus type 2: Continue insulin. Blood sugars have been fairly well controlled, so will not initiate a sliding scale of short-acting insulin initially. She will have a consult with the dietitian. 5. Constipation: I have initiated a bowel program with senna 1 tablet twice daily. She will have a bisacodyl suppository today to ensure that her bowels are moving. Consider titrating senna or adding other laxatives if they are needed. 6. Hypertension: Continue losartan and monitor her blood pressure. 7. Hypothyroidism: Continue levothyroxine. 8. Heart murmur. She is otherwise without current signs or symptoms of congestive heart failure. 9. Question of neuropathic pain: She reports pregabalin was begun by Dr. Schumacher. She denies any history of loss of sensation in her lower extremities or of neuropathic pain. Will discontinue pregabalin. 10. She has pantoprazole ordered p.r.n. for acid reflux. She will be monitored for symptoms and will consider treating with calcium carbonate or other p.r.n. medication rather than a proton-pump inhibitor depending on frequency of symptoms and whether or not they are adequately controlled. 11. Prophylaxis: She is at significantly elevated risk for a DVT based on age and major lower extremity amputation. We will initiate enoxaparin 40 mg subcutaneously daily. Optimal duration is unclear and we will research further. With history of peripheral vascular disease and prior use of clopidogrel, it is unclear why she is not on an anti-platelet agent, and this too will be researched further. 12. Followup: She is to see Surgeon, Dr. Favian Schumacher, in approximately 10 to 14 days, which would be March 10, or the following week beginning March 13. /[id number]/MODL MTDD
[2018-02-28] MEDS: INSULIN LISPRO 100 UNIT/ML SC SCH (17:47)
[2018-02-28] MEDS: morphINE SR 15 MG TAB PO SCH (21:00)
[2018-02-28] MEDS: SENNOSIDES 1 TAB PO SCH (21:00)
[2018-02-28] MEDS: PANTOPRAZOLE SODIUM 40 MG TAB PO PRN (22:30)
[2018-03-01] MEDS: oxyCODONE IR 5 MG TAB PO PRN ×2 (04:58→23:36)
[2018-03-01] MEDS: LOSARTAN POTASSIUM 50 MG TAB PO SCH (08:58)
[2018-03-01] MEDS: CHOLECALCIFEROL VIT D3 1,000 UNITS TAB PO SCH (08:58)
[2018-03-01] MEDS: PREGABALIN 50 MG CAP PO SCH (08:58)
[2018-03-01] MEDS: INSULIN LISPRO 100 UNIT/ML SC SCH ×3 (08:58→18:00)
[2018-03-01] MEDS: LEVOTHYROXINE 75 MCG TAB PO SCH (08:58)
[2018-03-01] MEDS: PRESERVISION AREDS2 FORMULA EYE VIT 1 EACH PO SCH (08:59)
[2018-03-01] MEDS: SENNOSIDES 1 TAB PO SCH ×2 (08:59→20:47)
[2018-03-01] MEDS: ENOXAPARIN 40 MG/0.4 ML SYR SC SCH (08:59)
[2018-03-01] MEDS: PRAVASTATIN SODIUM 40 MG TAB PO SCH (08:59)
--- NOTE | 2018-03-01 09:27 | SOAPPROG ---
SOAP Progress Note Assessment/Plan: Assessment: Impaired mobility and activities of daily living due to left anlrl-gmd-gbec amputation: * PT and OT to optimize mobility and activities of daily living towards the independent or modified independent level. Pain management: Continue oxycodone 5-15 mg q.3 hours p.r.n., sustained release morphine 15 mg twice daily, and acetaminophen as needed. * Holding sustained release morphine this morning, 03/01/2018, due to possible opiate-induced hypoventilation. Hypoxia and reduced respiratory rate morning of 03/01/2018. * Holding sustained release morphine this morning. Encourage incentive spirometry. * Check CBC, BNP. Consider chest x-ray. Wound care: She will have dressing changes over the left residual limb every- other day and if it becomes saturated; it was most recently changed today. 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 This has begun to heal. Will seek Wound Care orders regarding management of this wound. Diabetes mellitus type 2: Continue insulin. Blood sugars have been fairly well controlled, so will not initiate a sliding scale of short-acting insulin initially. She will have a consult with the dietitian. Constipation: I have initiated a bowel program with senna 1 tablet twice daily. She will have a bisacodyl suppository today to ensure that her bowels are moving. Consider titrating senna or adding other laxatives if they are needed. Hypertension: Continue losartan and monitor her blood pressure. * Check BMP. Hypothyroidism: Continue levothyroxine. * No TSH in the chart since 05/28/2018. Will add TSH to this morning's labs. Heart murmur. She is otherwise without current signs or symptoms of congestive heart failure. * Check BNP due to hypoxia this morning. She denies history of or current neuropathic pain. Pre BRIAN Cathie discontinued . She has pantoprazole ordered p.r.n. for acid reflux. She will be monitored for symptoms and will consider treating with calcium carbonate or other p.r.n. medication rather than a proton-pump inhibitor depending on frequency of symptoms and whether or not they are adequately controlled. Prophylaxis: She is at significantly elevated risk for a DVT based on age and major lower extremity amputation. We will initiate enoxaparin 40 mg subcutaneously daily. Optimal duration is unclear and we will research further. With history of peripheral vascular disease and prior use of clopidogrel, it is unclear why she is not on an anti-platelet agent, and this too will be researched further. Followup: She is to see Surgeon, Dr. Favian Schumacher, in approximately 10 to 14 days, which would be March 10, or the following week beginning March 13. 03/01/18 09:33 Subjective: Slept well. Reports pain is better. Nurse notes hypoxia down to the 60s when she is at rest or sleeping, after breakfast today. Patient denies cough, dyspnea, fevers, chills, chest pain. Objective: Vital Signs Temp Pulse Resp BP Pulse Ox 36.7 C 77 15 140/65 H 90 L 03/01/18 05:55 03/01/18 05:55 03/01/18 05:55 03/01/18 08:58 03/01/18 05:55 02/28/18 03/01/18 03/02/18 05:59 05:59 05:59 Intake Total 700 Output Total 1075 Balance -375 Physical Exam - Physical Exam General Appearance: WD/WN, alert, no apparent distress Respiratory: normal breath sounds, other (Bronchial breath sounds left lower lobe), No crackles, No rhonchi, No wheezing Cardiac/Chest: regular rate, rhythm, systolic murmur (2/6 left sternal border), other (1 skipped heartbeat noted, otherwise regular rhythm), No edema Skin: normal color, warm/dry Neuro/Psych: no motor/sensory deficits, alert, normal mood/affect, oriented x 3 ICD10 Worksheet Patient Problems: Problems Problem Status Onset Peripheral vascular disease due to secondary diabetes Acute Peripheral vascular disease of extremity with claudication Acute
--- NOTE | 2018-03-01 09:28 | PDOREHIP ---
Admission IR[facility] - Admission - 3 Day Assessment Period Admission Date/Day 1: 02/28/18 Day 2: 03/01/18 Day 3: 03/02/18 - Active Diagnoses Comorbidities and Co-existing Conditions at Admission: 63122. PVD or PAD - Skin Conditions Unhealed Pressure Ulcer (1 or more/Stage 1 or >)-Admission: 0. No
[2018-03-01] MEDS: morphINE SR 15 MG TAB PO SCH ×2 (11:39→22:15)
[2018-03-01 11:53] LABS: PLATELET COUNT 323 10^3/uL (150-400)
[2018-03-01] MEDS: PANTOPRAZOLE SODIUM 40 MG TAB PO PRN (12:55)
[2018-03-01] MEDS: ONDANSETRON DISINTEGRATING 4 MG TAB PO PRN (14:31)
[2018-03-01] MEDS: INSULIN GLARGINE 100 UNITS/ML UNIT SC SCH (14:38)
[2018-03-01] MEDS: BETHANECHOL 10 MG TAB PO SCH ×2 (16:32→20:47)
--- NOTE | 2018-03-01 17:46 | WOCRNPDOC ---
WOCRN Advanced Assessment Note - Skin Integrity Problem, Advanced Assess Left Medial Thigh Dressing Type: Allevyn Life, Packing (Algidex) Dressing Description: Clean/Dry, Intact Closure Description: Not Approximated Exudate Amount: Minimal Exudate Color: Reddish/Yellow Exudate Characteristic(s): Serosanguinous Integumentary Issue Intervention: Dressing Changed Brenda Wound Tissue: Blanching, Erythema, Swollen, Thin Brenda Wound Swelling: Mild Wound Bed Color: Red Wound Bed Constitution: Granulation Tissue (100%) Wound Edges: Epithelizing, Attached Site Measurement - Head-to-Toe Length X Width X Depth (cm): 1x0.7x0.9 Skin Integrity Problem Comment: Packing in wound bed dry. Cleaned wound bed with normal saline. Patted dry with gauze. Ginette SANDRA performed mechanical debridement from 2-4 oclock, with removal of approximately 0.5x0.5cm of skin that was rolled over the lip of the wound edge. Geraldine Ag (collagen) moistened with a few drops of normal saline and placed in wound bed. Algidex packing was lightly placed over the collagen, and a few drops of normal saline added to keep moist. Wound covered with Allevyn life dressing. Sacrum Pressure Injury Dressing Type: Open to Air Exudate Amount: Scant Exudate Color: Reddish/Yellow Exudate Characteristic(s): Serosanguinous Integumentary Issue Intervention: Dressing Applied, Hydrogel Applied Brenda Wound Tissue: Erythema, Non-blanching, Swollen, Thin Brenda Wound Swelling: Mild Wound Bed Color: Purple, Red Wound Bed Constitution: Red/[place] - Non Granular Tissue (100%) Wound Edges: Not Attached, Irregular Site Measurement - Head-to-Toe Length X Width X Depth (cm): 6.3x5.4x0.1 Pressure Injury Stage: Deep Tissue Injury (DTI) Pressure Injury Present on Admit: Yes Skin Integrity Problem Comment: Present on admission deep tissue pressure injury primarily on right sacrum, with small area on left sacrum. Partial thickness opening is present within the borders of the evolving DTI on right sacrum, that measures approximately 1x1x0.1. The small partial thickness wound was cleaned with normal saline and patted dry with gauze. Wound gel applied. Mepilex border sacral dressing applied. An additional partial thickness opening located closer to ischium, approximately 1x1x0.1, not part of sacral DTI, nor is it a pressure injury. It is a friction injury from sliding Catergory 3 skin tear. Wound gel applied, covered with same Mepilex border dressing. RN Catrachita in room for care. Education provided to patient re: nature/etiology of pressure injury, need for frequent repositioning and offloading, and follow up interventions and plan of care. Wound care will round again early next week. Right Heel Pressure Injury Dressing Type: Open to Air Brenda Wound Tissue: Non-blanching Site Measurement - Head-to-Toe Length X Width X Depth (cm): 2x2x0 Pressure Injury Stage: Stage 1 Pressure Injury Present on Admit: Yes Skin Integrity Problem Comment: Please place offloading boot. Education provided to patient regarding need to offload/pressure injury prevention.
[2018-03-01] MEDS: IBUPROFEN 200 MG TAB PO PRN (22:27)
[2018-03-02] MEDS: BETHANECHOL 10 MG TAB PO SCH ×4 (05:31→20:10)
[2018-03-02] MEDS: SENNOSIDES 1 TAB PO SCH ×2 (08:27→20:10)
[2018-03-02] MEDS: CHOLECALCIFEROL VIT D3 1,000 UNITS TAB PO SCH (08:27)
[2018-03-02] MEDS: PRAVASTATIN SODIUM 40 MG TAB PO SCH (08:27)
[2018-03-02] MEDS: INSULIN LISPRO 100 UNIT/ML SC SCH ×3 (08:27→17:59)
[2018-03-02] MEDS: ENOXAPARIN 40 MG/0.4 ML SYR SC SCH (08:27)
[2018-03-02] MEDS: PRESERVISION AREDS2 FORMULA EYE VIT 1 EACH PO SCH (08:27)
[2018-03-02] MEDS: LEVOTHYROXINE 75 MCG TAB PO SCH (08:27)
[2018-03-02] MEDS: SODIUM CHLORIDE 1,000 MG TAB PO SCH ×3 (08:27→17:44)
[2018-03-02] MEDS: LOSARTAN POTASSIUM 50 MG TAB PO SCH (08:27)
[2018-03-02] MEDS: morphINE SR 15 MG TAB PO SCH (10:40)
[2018-03-02] MEDS: IBUPROFEN 200 MG TAB PO PRN (10:41)
--- NOTE | 2018-03-02 12:08 | SOAPPROG ---
SOAP Progress Note Assessment/Plan: Assessment: Impaired mobility and activities of daily living due to left [id number] amputation: * PT and OT to optimize mobility and activities of daily living towards the independent or modified independent level. Hypoxia and reduced respiratory rate morning of 03/01/2018. * Labs on 03/01/2018: CBC with mild leukocytosis, BNP not consistent with CHF. * Oxygenation and lung exam improved 03/02/2018. Hyponatremia on [facility], 03/01/2018. Normal serum osmolarity, low urine osmolality, low urine sodium, and reduced PO Intake documented over the past several days. Likely hypovolemic with appropriate ADH secretion. * Patient requests minimal blood draws. Will not place IV though if she would tolerate, IV normal saline would be appropriate. * Encourage p.o. hydration. Initiated sodium chloride tablets three times daily with meals. * Check [facility] 03/03/2018. Wound care, left lower extremity residual limb: She will have dressing changes over the left residual limb every-other day and if it becomes saturated; it was most recently changed today. 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 This has begun to heal. Reviewed Wound Care orders regarding management of this wound. * Sent photos of incision with erythema to surgeon Dr. Schumacher' nurse practitioner , 11/30/2017. Concur with advice: will treat with cephalexin 500 mg Q 6 hours for 10 days, starting 03/02/2018. Pressure ulcers. Deep tissue injury right sacrum, stage I pressure ulcer right heel. * Offloading and dressing changes per nursing. * Wound nurse is following. Reviewed orders. Appreciate assistance. Diabetes mellitus type 2: Continue insulin. Blood sugars have been fairly well controlled. * Monitoring blood sugars. Fasting was lower than necessary but not frankly low today, 03/02/2018. Continue to monitor. If she continues well controlled will discontinue monitoring. If she continues with low fasting blood sugars, will reduce insulin glargine. Constipation: I have initiated a bowel program with senna 1 tablet twice daily. She will have a bisacodyl suppository today to ensure that her bowels are moving. Consider titrating senna or adding other laxatives if they are needed. Hypertension: Continue losartan and monitor her blood pressure. * BMP 03/01/2018 with hyponatremia; renal function otherwise within normal limits. Pain management: Continue oxycodone 5-15 mg q.3 hours p.r.n. Discontinue sustained release morphine as she had does not appear to need it. Continue ibuprofen and acetaminophen as needed. Hypothyroidism: Continue levothyroxine. * Normal TSH on 03/01/2018. Heart murmur. She is otherwise without current signs or symptoms of congestive heart failure. * BNP 03/01/2018 not consistent with CHF. She denies history of or current neuropathic pain. Pregabalin discontinued 03/01. She has pantoprazole ordered p.r.n. for acid reflux. She will be monitored for symptoms and will consider treating with calcium carbonate or other p.r.n. medication rather than a proton-pump inhibitor depending on frequency of symptoms and whether or not they are adequately controlled. Prophylaxis: She is at significantly elevated risk for a DVT based on age and major lower extremity amputation. Initiated enoxaparin 40 mg subcutaneously daily on 03/01/2018. With history of peripheral vascular disease and prior use of clopidogrel, it is unclear why she is not on an anti-platelet agent, but may not be indicated while she is on enoxaparin. Followup: She is to see Surgeon, Dr. Favian Schumacher, in approximately 10 to 14 days, which would be March 10, or the following week beginning March 13. 03/02/18 13:34 03/02/18 15:59 Subjective: No complaints. Pain is adequately controlled and is not needing the long- acting morphine. Has a cough and brings up sputum in the morning. No fevers or chills, no nausea, vomiting, constipation or diarrhea. Objective: Vital Signs Temp Pulse Resp BP Pulse Ox 36.4 C 61 12 129/59 H 96 03/02/18 05:34 03/02/18 05:34 03/02/18 05:34 03/02/18 08:27 03/02/18 05:34 Laboratory Results 03/01/18 10:35 03/01/18 10:35 03/01/18 03/02/18 03/03/18 05:59 05:59 05:59 Intake Total 700 800 Output Total 2099 2515 Balance -241 -7887 Physical Exam - Physical Exam General Appearance: WD/WN, alert, no apparent distress Respiratory: normal breath sounds, No crackles, No rhonchi, No wheezing Cardiac/Chest: regular rate, rhythm, systolic murmur, No edema, No diastolic murmur Skin: normal color, warm/dry, other (Erythema around sutures, residual limb incision. Incision is well approximated with no drainage.) ICD10 Worksheet Patient Problems: Problems Problem Status Onset Peripheral vascular disease due to secondary diabetes Acute Peripheral vascular disease of extremity with claudication Acute
[2018-03-02] MEDS: TAMSULOSIN HCL 0.4 MG CAP PO SCH (13:07)
[2018-03-02] MEDS: METHOCARBAMOL 750 MG TAB PO PRN (14:15)
[2018-03-02] MEDS: INSULIN GLARGINE 100 UNITS/ML UNIT SC SCH (15:00)
[2018-03-02] MEDS: POLYETHYLENE GLYCOL 3350 17 GM PKT PO SCH (17:44)
[2018-03-02] MEDS: CEPHALEXIN 500 MG CAP PO SCH (17:44)
[2018-03-03] MEDS: CEPHALEXIN 500 MG CAP PO SCH ×5 (00:02→23:34)
[2018-03-03] MEDS: BETHANECHOL 10 MG TAB PO SCH ×4 (05:36→20:01)
[2018-03-03] MEDS: ONDANSETRON DISINTEGRATING 4 MG TAB PO PRN (07:46)
[2018-03-03] MEDS: ENOXAPARIN 40 MG/0.4 ML SYR SC SCH (08:58)
[2018-03-03] MEDS: LOSARTAN POTASSIUM 50 MG TAB PO SCH (08:58)
[2018-03-03] MEDS: SODIUM CHLORIDE 1,000 MG TAB PO SCH ×3 (08:58→18:09)
[2018-03-03] MEDS: LEVOTHYROXINE 75 MCG TAB PO SCH (08:58)
[2018-03-03] MEDS: CHOLECALCIFEROL VIT D3 1,000 UNITS TAB PO SCH (08:58)
[2018-03-03] MEDS: POLYETHYLENE GLYCOL 3350 17 GM PKT PO SCH (08:58)
[2018-03-03] MEDS: PRESERVISION AREDS2 FORMULA EYE VIT 1 EACH PO SCH (08:58)
[2018-03-03] MEDS: TAMSULOSIN HCL 0.4 MG CAP PO SCH (08:58)
[2018-03-03] MEDS: PRAVASTATIN SODIUM 40 MG TAB PO SCH (08:58)
[2018-03-03] MEDS: SENNOSIDES 1 TAB PO SCH ×2 (08:58→21:00)
[2018-03-03] MEDS: INSULIN LISPRO 100 UNIT/ML SC SCH (09:34)
--- NOTE | 2018-03-03 09:44 | SOAPPROG ---
SOAP Progress Note Assessment/Plan: Assessment: Impaired mobility and activities of daily living due to left [id number] amputation: * Initial functional independence measure 69 on 03/03/2018. Contact guard assist for bed mobility. Has ambulated 10 ft x 2 with a front wheeled walker and standby assist.. Has self-propelled wheelchair 150 ft. Minimal assist for upper body dressing, minimal to moderate assist for lower body dressing. Bath transfer with minimal to moderate assist, bathing with minimal assist. Toilet transfer with minimal assist. * Continue PT and OT to optimize mobility and activities of daily living towards the independent or modified independent level. * D/W Malena, assistant at surgery for Dr. Schumacher, 03/03/2018. Orthotics consult for residual limb protector. Pain management: Continue oxycodone 5-15 mg q.3 hours p.r.n., and acetaminophen as needed. * Discontinued sustained release morphine on 03/02/2018. Has not used any opiates since 03/01/2018. Hypoxia and reduced respiratory rate morning of 03/01/2018. * Holding sustained release morphine this morning. Encourage incentive spirometry. * CBC 03/01/2018 showed elevated white count, otherwise within normal limits. BNP was not consistent with congestive heart failure. * Hypoxia has resolved. Hyponatremia on [facility], 03/01/2018. Normal serum osmolarity, low urine osmolality, low urine sodium, and reduced PO Intake documented over the past several days. Likely hypovolemic with appropriate ADH secretion. * Patient requests minimal blood draws. Will not place IV though if she would tolerate, IV normal saline would be appropriate. * Encourage p.o. hydration. Initiated sodium chloride tablets three times daily with meals. * Check [facility] 03/03/2018. Urinary retention. * She reports a history of urinary retention after a prior procedure years ago. She was able to straight catheterization herself at that time. * Initiated bethanechol and tamsulosin on 03/02/2018. Nursing to instruct regarding self catheterization. Hope for return of normal voiding now that she is not using opiates. Wound care: She will have dressing changes over the left residual limb every- other day and if it becomes saturated. 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 This has begun to heal. * Pressure ulcers over left sacrum and left heel. * Continue orders per wound nurse. Cellulitis at amputation incision. 10 days of cephalexin initiated 03/02/2018, after sending photo of incision to surgeon Dr. Schumacher. Cognitive impairment. * Poor short-term memory noted by therapy staff and nursing. * May be exacerbated by interrupted sleep with interruptions for bladder scanning, catheterization, and repositioning. * Continue to monitor. Diabetes mellitus type 2: Continue insulin glargine. * Has only recurred rarely required sliding scale insulin during the day; will discontinue blood sugar checks and sliding scale insulin 03/03/2018. Constipation: * Continue senna 1 p.o. twice daily. Change-glycol to p.r.n. Starting 2017 continue bisacodyl suppository p.r.n. Hypertension: Continue losartan and monitor her blood pressure. Hypothyroidism: Continue levothyroxine. * No TSH in the chart since 05/28/2018. Normal TSH 03/02/2018. Heart murmur. She is otherwise without current signs or symptoms of congestive heart failure. * Normal BNP 03/02/2018. She denies history of or current neuropathic pain. Pregabalin discontinued 03/01. She has pantoprazole ordered p.r.n. for acid reflux. She will be monitored for symptoms and will consider treating with calcium carbonate or other p.r.n. medication rather than a proton-pump inhibitor depending on frequency of symptoms and whether or not they are adequately controlled. Prophylaxis: She is at significantly elevated risk for a DVT based on age and major lower extremity amputation. We will initiate enoxaparin 40 mg subcutaneously daily. Optimal duration is unclear and we will research further. With history of peripheral vascular disease and prior use of clopidogrel, it is unclear why she is not on an anti-platelet agent, and this too will be researched further. DISPOSITION: Attended staffing, 15 min. Discussed with case management, nursing, PT, OT. Intends to return to living alone in a [facility] in [place]. Has 2 steps to enter the house. Has good family support. Plan for discharge home on 03/10/2018. Followup: She is to see Surgeon, Dr. Favian Schumacher, in approximately 10 to 14 days, which would be March 10, or the following week beginning March 13. 03/01/18 09:33 03/03/18 11:16 03/03/18 11:30 03/03/18 15:08 Subjective: Refused blood draw this morning and does not want blood sugar checks. Appetite is improved. Would like to be able to self-catheterize, which she did previously after a procedure years ago. Otherwise without complaints. Objective: Vital Signs Temp Pulse Resp BP Pulse Ox 37.0 C 76 16 110/59 L 74 L 03/02/18 20:00 03/02/18 20:00 03/02/18 20:00 03/03/18 08:58 03/03/18 04:38 Laboratory Results 03/01/18 10:35 03/01/18 10:35 03/02/18 03/03/18 03/04/18 05:59 05:59 05:59 Intake Total 800 1090 Output Total 2175 1150 Balance -1375 -60 - Time Spent With Patient Time Spent With Patient: Greater than 35 min floor time today, including more than 50% of time in coordination of care during staffing meeting, and counseling patient. ICD10 Worksheet Patient Problems: Problems Problem Status Onset Peripheral vascular disease due to secondary diabetes Acute Peripheral vascular disease of extremity with claudication Acute
[2018-03-03] MEDS ORDERED: POLYETHYLENE GLYCOL 3350 17 GM PKT PO PRN (11:22)
[2018-03-03] MEDS: INSULIN GLARGINE 100 UNITS/ML UNIT SC SCH (14:56)
[2018-03-03] MEDS: IBUPROFEN 200 MG TAB PO PRN (21:28)
[2018-03-04] MEDS: BETHANECHOL 10 MG TAB PO SCH ×4 (05:32→20:48)
[2018-03-04] MEDS: CEPHALEXIN 500 MG CAP PO SCH ×3 (05:32→17:18)
[2018-03-04] MEDS: SODIUM CHLORIDE 1,000 MG TAB PO SCH ×3 (07:57→17:18)
[2018-03-04] MEDS: PRESERVISION AREDS2 FORMULA EYE VIT 1 EACH PO SCH (08:00)
[2018-03-04] MEDS: CHOLECALCIFEROL VIT D3 1,000 UNITS TAB PO SCH (08:00)
[2018-03-04] MEDS: ENOXAPARIN 40 MG/0.4 ML SYR SC SCH (08:00)
[2018-03-04] MEDS: LEVOTHYROXINE 75 MCG TAB PO SCH (08:00)
[2018-03-04] MEDS: TAMSULOSIN HCL 0.4 MG CAP PO SCH (08:00)
[2018-03-04] MEDS: LOSARTAN POTASSIUM 50 MG TAB PO SCH (08:00)
[2018-03-04] MEDS: SENNOSIDES 1 TAB PO SCH ×2 (08:00→20:53)
[2018-03-04] MEDS: PRAVASTATIN SODIUM 40 MG TAB PO SCH (08:00)
--- NOTE | 2018-03-04 09:46 | SOAPPROG ---
SOAP Progress Note Assessment/Plan: Assessment/Plan: Impaired mobility and activities of daily living due to left [id number] amputation: * Initial functional independence measure 69 on 03/03/2018. Contact guard assist for bed mobility. Has ambulated 10 ft x 2 with a front wheeled walker and standby assist.. Has self-propelled wheelchair 150 ft. Minimal assist for upper body dressing, minimal to moderate assist for lower body dressing. Bath transfer with minimal to moderate assist, bathing with minimal assist. Toilet transfer with minimal assist. * Continue PT and OT to optimize mobility and activities of daily living towards the independent or modified independent level. * D/W Malena, instructional assistant for Dr. Schumacher, 03/03/2018. Orthotics consult for residual limb protector. Pain management: Continue oxycodone 5-15 mg q.3 hours p.r.n., and acetaminophen as needed. * Discontinued sustained release morphine on 03/02/2018. Has not used any opiates since 03/01/2018. Hypoxia and reduced respiratory rate morning of 03/01/2018. * Holding sustained release morphine this morning. Encourage incentive spirometry. * CBC 03/01/2018 showed elevated white count, otherwise within normal limits. BNP was not consistent with congestive heart failure. * Hypoxia has resolved. Hyponatremia on [facility], 03/01/2018. Normal serum osmolarity, low urine osmolality, low urine sodium, and reduced PO Intake documented over the past several days. Likely hypovolemic with appropriate ADH secretion. * Patient requests minimal blood draws. Will not place IV though if she would tolerate, IV normal saline would be appropriate. * Encourage p.o. hydration. Initiated sodium chloride tablets three times daily with meals. * Check [facility] 03/03/2018. Urinary retention. * She reports a history of urinary retention after a prior procedure years ago. She was able to straight catheterization herself at that time. * Initiated bethanechol and tamsulosin on 03/02/2018. Nursing to instruct regarding self catheterization. Hope for return of normal voiding now that she is not using opiates. * Unclear on amount of retention or bladder volumes prior given history of diabetes Wound care: She will have dressing changes over the left residual limb every- other day and if it becomes saturated. 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 This has begun to heal. * Pressure ulcers over left sacrum and left heel. * Continue orders per wound nurse. Cellulitis at amputation incision. 10 days of cephalexin initiated 03/02/2018, after sending photo of incision to surgeon Dr. Schumacher. Cognitive impairment. * Poor short-term memory noted by therapy staff and nursing. * May be exacerbated by interrupted sleep with interruptions for bladder scanning, catheterization, and repositioning. * Continue to monitor. Diabetes mellitus type 2: Continue insulin glargine. * Has only recurred rarely required sliding scale insulin during the day; will discontinue blood sugar checks and sliding scale insulin 03/03/2018. Constipation: * Continue senna 1 p.o. twice daily. Change-glycol to p.r.n. Starting 2017 continue bisacodyl suppository p.r.n. Hypertension: Continue losartan and monitor her blood pressure. Hypothyroidism: Continue levothyroxine. * No TSH in the chart since 05/28/2018. Normal TSH 03/02/2018. Heart murmur. She is otherwise without current signs or symptoms of congestive heart failure. * Normal BNP 03/02/2018. She denies history of or current neuropathic pain. Pregabalin discontinued 03/01. She has pantoprazole ordered p.r.n. for acid reflux. She will be monitored for symptoms and will consider treating with calcium carbonate or other p.r.n. medication rather than a proton-pump inhibitor depending on frequency of symptoms and whether or not they are adequately controlled. Prophylaxis: She is at significantly elevated risk for a DVT based on age and major lower extremity amputation. We will initiate enoxaparin 40 mg subcutaneously daily. Optimal duration is unclear and we will research further. With history of peripheral vascular disease and prior use of clopidogrel, it is unclear why she is not on an anti-platelet agent, and this too will be researched further. DISPOSITION: Intends to [facility] [place]. Has 2 steps to enter the house. Has good family support. Plan for discharge home on 03/10/2018. Followup: She is to see Surgeon, Dr. Favian Schumacher, in approximately 10 to 14 days, which would be March 10, or the following week beginning March 13. Have discussed with PT abt support for wrapping to provide support for wound healing, limb shaping and edema management. Monitoring her sacral/coccyx skin sores closely with limited "up" time. RN will check to determine if tolerating being up. Have talked with patient about her sodium levels and associated concerns if it continues to decrease. Pt would like to wait until tomorrow since she is tired of being "poked and prodded". Will check tomorrow since has been stable x2 and patient looking good today - Her corrected sodium for hyperglycemia is 133. 03/04/18 09:38 Subjective: Feeling pretty good today - Pain is minimal and not feeling febrile/chills. Good appetite and eating well. We had a good discussion about bladder management. Objective: Vital Signs Temp Pulse Resp BP Pulse Ox 98.4 F 71 16 151/62 H 92 03/04/18 07:55 03/04/18 07:55 03/04/18 07:55 03/04/18 08:00 03/04/18 07:55 Laboratory Results 03/01/18 10:35 03/03/18 11:11 03/03/18 03/04/18 03/05/18 05:59 05:59 05:59 Intake Total 1090 745 Output Total 1150 1100 Balance -60 -355 Physical Exam - Physical Exam General Appearance: alert, no apparent distress, other (up at breakfast table ) EENT: PERRL/EOMI, other (mmm) Respiratory: lungs clear Cardiac/Chest: edema (mild edema of the left residual limb) Abdomen: normal bowel sounds, non-tender Skin: other (Well healing left LE incision - minimal dried drainage although no active discharge. raymond incision without erythema. The left thigh with a nickel size eschar - unclear of procedure performed in this area. no evidence of infection - the eschar is dry. Sacral/coccyx region - non blaching skin centrally - more prevelant on the right side- no open skin as of yet but may evolve. Appears combo of both shear and potentially pressure) Neuro/Psych: alert ICD10 Worksheet Patient Problems: Problems Problem Status Onset Peripheral vascular disease due to secondary diabetes Acute Peripheral vascular disease of extremity with claudication Acute
[2018-03-04] MEDS: IBUPROFEN 200 MG TAB PO PRN ×2 (11:45→20:48)
[2018-03-04] MEDS: INSULIN GLARGINE 100 UNITS/ML UNIT SC SCH (14:27)
[2018-03-05] MEDS: CEPHALEXIN 500 MG CAP PO SCH ×4 (00:07→17:47)
[2018-03-05] MEDS: BETHANECHOL 10 MG TAB PO SCH ×4 (05:35→21:09)
[2018-03-05] MEDS: LEVOTHYROXINE 75 MCG TAB PO SCH (08:03)
[2018-03-05] MEDS: ENOXAPARIN 40 MG/0.4 ML SYR SC SCH (08:03)
[2018-03-05] MEDS: TAMSULOSIN HCL 0.4 MG CAP PO SCH (08:46)
[2018-03-05] MEDS: PRESERVISION AREDS2 FORMULA EYE VIT 1 EACH PO SCH (08:46)
[2018-03-05] MEDS: LOSARTAN POTASSIUM 50 MG TAB PO SCH (08:46)
[2018-03-05] MEDS: CHOLECALCIFEROL VIT D3 1,000 UNITS TAB PO SCH (08:46)
[2018-03-05] MEDS: PRAVASTATIN SODIUM 40 MG TAB PO SCH (08:46)
[2018-03-05] MEDS: SODIUM CHLORIDE 1,000 MG TAB PO SCH ×3 (08:46→17:47)
[2018-03-05] MEDS: SENNOSIDES 1 TAB PO SCH ×2 (08:47→20:56)
[2018-03-05] MEDS: IBUPROFEN 200 MG TAB PO PRN (10:14)
--- NOTE | 2018-03-05 12:15 | SOAPPROG ---
SOAP Progress Note Assessment/Plan: Assessment/Plan: Impaired mobility and activities of daily living due to left [id number] amputation: * Initial functional independence measure 69 on 03/03/2018. Contact guard assist for bed mobility. Has ambulated 10 ft x 2 with a front wheeled walker and standby assist.. Has self-propelled wheelchair 150 ft. Minimal assist for upper body dressing, minimal to moderate assist for lower body dressing. Bath transfer with minimal to moderate assist, bathing with minimal assist. Toilet transfer with minimal assist. * Continue PT and OT to optimize mobility and activities of daily living towards the independent or modified independent level. * D/W Malena, administrative assistant data entry for Dr. Schumacher, 03/03/2018. Orthotics consult for residual limb protector. Pain management: Continue oxycodone 5-15 mg q.3 hours p.r.n., and acetaminophen as needed. * Discontinued sustained release morphine on 03/02/2018. Has not used any opiates since 03/01/2018. Hypoxia and reduced respiratory rate morning of 03/01/2018. * Holding sustained release morphine this morning. Encourage incentive spirometry. * CBC 03/01/2018 showed elevated white count, otherwise within normal limits. BNP was not consistent with congestive heart failure. * Hypoxia has resolved. Hyponatremia on [facility], 03/01/2018. Normal serum osmolarity, low urine osmolality, low urine sodium, and reduced PO Intake documented over the past several days. Likely hypovolemic with appropriate ADH secretion. * Patient requests minimal blood draws. Will not place IV though if she would tolerate, IV normal saline would be appropriate. * Encourage p.o. hydration. Initiated sodium chloride tablets three times daily with meals. * Repeat [facility] on 03/04 - improved sodium levels. Urinary retention. * She reports a history of urinary retention after a prior procedure years ago. She was able to straight catheterization herself at that time. * Initiated bethanechol and tamsulosin on 03/02/2018. Nursing to instruct regarding self catheterization. Hope for return of normal voiding now that she is not using opiates. * Unclear on amount of retention or bladder volumes prior given history of diabetes Wound care: She will have dressing changes over the left residual limb every- other day and if it becomes saturated. 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 This has begun to heal. * Pressure ulcers over left sacrum and left heel. * Continue orders per wound nurse. Cellulitis at amputation incision. 10 days of cephalexin initiated 03/02/2018, after sending photo of incision to surgeon Dr. Schumacher. Cognitive impairment. * Poor short-term memory noted by therapy staff and nursing. * May be exacerbated by interrupted sleep with interruptions for bladder scanning, catheterization, and repositioning. * Continue to monitor. Diabetes mellitus type 2: Continue insulin glargine. * Has only recurred rarely required sliding scale insulin during the day; will discontinue blood sugar checks and sliding scale insulin 03/03/2018. Constipation: * Continue senna 1 p.o. twice daily. Change-glycol to p.r.n. Starting 2017 continue bisacodyl suppository p.r.n. Hypertension: Continue losartan and monitor her blood pressure. Hypothyroidism: Continue levothyroxine. * No TSH in the chart since 05/28/2018. Normal TSH 03/02/2018. Heart murmur. She is otherwise without current signs or symptoms of congestive heart failure. * Normal BNP 03/02/2018. She denies history of or current neuropathic pain. Pregabalin discontinued 03/01. She has pantoprazole ordered p.r.n. for acid reflux. She will be monitored for symptoms and will consider treating with calcium carbonate or other p.r.n. medication rather than a proton-pump inhibitor depending on frequency of symptoms and whether or not they are adequately controlled. Prophylaxis: She is at significantly elevated risk for a DVT based on age and major lower extremity amputation. We will initiate enoxaparin 40 mg subcutaneously daily. Optimal duration is unclear and we will research further. With history of peripheral vascular disease and prior use of clopidogrel, it is unclear why she is not on an anti-platelet agent, and this too will be researched further. DISPOSITION: Intends to return to living alone in a [facility] in [place]. Has 2 steps to enter the house. Has good family support. Plan for discharge home on 03/10/2018. Followup: She is to see Surgeon, Dr. Favian Schumacher, in approximately 10 to 14 days, which would be March 10, or the following week beginning March 13. Review of labs with patient - having some ongoing drop in H/H although without symptoms. Pt would like to hold off on any further lab draws unless "absolutely " necessary. Will monitor symptoms and consider f/u in a few days - no active bleeding evident. Having more phantom pain - will start gabapentin 100mg TID for pain relief. Pt may also benefit from support surrounding management of her new disability and goal planning now that she has had this amputation. We had good discussion about recommendations to prevent further amputation as she is high risk for further amputation. 03/05/18 12:11 Subjective: Had many questions regarding "why" this has happened. Starting to notice some increase in her phantom limb pain. no new fevers/chills. Good appetite and eating well Objective: Vital Signs Temp Pulse Resp BP Pulse Ox 98.7 F 69 16 145/63 H 94 03/05/18 05:49 03/05/18 08:45 03/05/18 05:49 03/05/18 08:46 03/05/18 05:49 Laboratory Results 03/05/18 06:00 03/05/18 06:00 03/04/18 03/05/18 03/06/18 05:59 05:59 05:59 Intake Total 745 500 560 Output Total 1100 1200 850 Balance -355 -700 -290 Physical Exam - Physical Exam General Appearance: alert, mild distress EENT: PERRL/EOMI Respiratory: lungs clear, normal breath sounds Cardiac/Chest: regular rate, rhythm Abdomen: normal bowel sounds, non-tender, soft Neuro/Psych: alert, other (Did not appear to have a depressed affect) ICD10 Worksheet Patient Problems: Problems Problem Status Onset Peripheral vascular disease due to secondary diabetes Acute Peripheral vascular disease of extremity with claudication Acute
[2018-03-05] MEDS: INSULIN GLARGINE 100 UNITS/ML UNIT SC SCH (14:21)
[2018-03-05] MEDS: GABAPENTIN 100 MG CAP PO SCH ×2 (14:21→21:09)
[2018-03-06] MEDS: CEPHALEXIN 500 MG CAP PO SCH ×5 (00:03→23:13)
[2018-03-06] MEDS: BETHANECHOL 10 MG TAB PO SCH ×4 (05:13→20:30)
[2018-03-06] MEDS: IBUPROFEN 200 MG TAB PO PRN (07:20)
[2018-03-06] MEDS: LEVOTHYROXINE 75 MCG TAB PO SCH (07:58)
[2018-03-06] MEDS: SODIUM CHLORIDE 1,000 MG TAB PO SCH ×3 (07:58→17:08)
[2018-03-06] MEDS: TAMSULOSIN HCL 0.4 MG CAP PO SCH (07:58)
[2018-03-06] MEDS: PRAVASTATIN SODIUM 40 MG TAB PO SCH (07:58)
[2018-03-06] MEDS: CHOLECALCIFEROL VIT D3 1,000 UNITS TAB PO SCH (07:58)
[2018-03-06] MEDS: LOSARTAN POTASSIUM 50 MG TAB PO SCH (07:59)
[2018-03-06] MEDS: GABAPENTIN 100 MG CAP PO SCH ×3 (07:59→20:33)
[2018-03-06] MEDS: PRESERVISION AREDS2 FORMULA EYE VIT 1 EACH PO SCH (07:59)
[2018-03-06] MEDS: ENOXAPARIN 40 MG/0.4 ML SYR SC SCH (07:59)
[2018-03-06] MEDS: SENNOSIDES 1 TAB PO SCH ×2 (08:00→20:30)
--- NOTE | 2018-03-06 11:02 | SOAPPROG ---
SOAP Progress Note Assessment/Plan: Assessment: Impaired mobility and activities of daily living due to left [id number] amputation: * Initial functional independence measure 69 on 03/03/2018. Contact guard assist for bed mobility. Has ambulated 10 ft x 2 with a front wheeled walker and standby assist.. Has self-propelled wheelchair 150 ft. Minimal assist for upper body dressing, minimal to moderate assist for lower body dressing. Bath transfer with minimal to moderate assist, bathing with minimal assist. Toilet transfer with minimal assist. * Continue PT and OT to optimize mobility and activities of daily living towards the independent or modified independent level. * D/W Malena, operations and intelligence assistant for Dr. Schumacher, 03/03/2018. Orthotics consult for residual limb protector. Pain management: Continue oxycodone 5-15 mg q.3 hours p.r.n., and acetaminophen as needed. * Discontinued sustained release morphine on 03/02/2018. Has not used any opiates since 03/01/2018. * Pain control on ibuprofen alone. Scheduled acetaminophen 1000 mg q.8 hours starting 03/06/2018. Hypoxia and reduced respiratory rate morning of 03/01/2018. * Holding sustained release morphine this morning. Encourage incentive spirometry. * CBC 03/01/2018 showed elevated white count, otherwise within normal limits. BNP was not consistent with congestive heart failure. * Hypoxia has resolved. Hyponatremia on [facility], 03/01/2018. Normal serum osmolarity, low urine osmolality, low urine sodium, and reduced PO Intake documented over the past several days. Likely hypovolemic with appropriate ADH secretion. * Patient requests minimal blood draws. Will not place IV though if she would tolerate, IV normal saline would be appropriate. * Encourage p.o. hydration. Initiated sodium chloride tablets three times daily with meals. * Stable on [facility] 03/03/2018. Improved on [facility] 03/05/2018. Hypertension: Continue losartan and monitor her blood pressure. * Blood pressure increased times 1-2 days, noted 03/06/2018. Possibly due to use of ibuprofen. * Added acetaminophen for improved pain control. * Continue to monitor; consider addition of 2nd antihypertensive agent. Urinary retention. * She reports a history of urinary retention after a prior procedure years ago. She was able to straight catheterization herself at that time. * Initiated bethanechol and tamsulosin on 03/02/2018. Nursing reports that she is able to self-catheterize though she needs some assistance at times. Wound care: She will have dressing changes over the left residual limb every- other day and if it becomes saturated. 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 This has begun to heal. * Pressure ulcers over left sacrum and left heel. * Continue orders per wound nurse. Cellulitis at amputation incision. 10 days of cephalexin initiated 03/02/2018, after sending photo of incision to surgeon Dr. Schumacher. * Improved, per nursing on 03/06/2018. Will inspect with next scheduled dressing change. Cognitive impairment. * Poor short-term memory noted by therapy staff and nursing. * May be exacerbated by interrupted sleep with interruptions for bladder scanning, catheterization, and repositioning. * Continue to monitor. Diabetes mellitus type 2: Continue insulin glargine. * Has only recurred rarely required sliding scale insulin during the day; will discontinue blood sugar checks and sliding scale insulin 03/03/2018. Constipation: * Continue senna 1 p.o. twice daily. Change-glycol to p.r.n. Starting 2017 continue bisacodyl suppository p.r.n. Hypothyroidism: Continue levothyroxine. * No TSH in the chart since 05/28/2018. Normal TSH 03/02/2018. Heart murmur. She is otherwise without current signs or symptoms of congestive heart failure. * Normal BNP 03/02/2018. She denies history of or current neuropathic pain. Pregabalin discontinued 03/01. She has pantoprazole ordered p.r.n. for acid reflux. She will be monitored for symptoms and will consider treating with calcium carbonate or other p.r.n. medication rather than a proton-pump inhibitor depending on frequency of symptoms and whether or not they are adequately controlled. Prophylaxis: She is at significantly elevated risk for a DVT based on age and major lower extremity amputation. We will initiate enoxaparin 40 mg subcutaneously daily. Optimal duration is unclear and we will research further. With history of peripheral vascular disease and prior use of clopidogrel, it is unclear why she is not on an anti-platelet agent, and this too will be researched further. DISPOSITION: Intends to return to living alone in a formerly [facility] in [place]. Has 2 steps to enter the house. Has good family support. Plan for discharge home on 03/10/2018. Followup: She is to see Surgeon, Dr. Favian Schumacher, in approximately 10 to 14 days, which would be March 10, or the following week beginning March 13. 03/06/18 10:58 Subjective: Has had increased pain which has interfered with participation in therapies, noted in therapy notes from yesterday. Says she is sleeping well. No cough or dyspnea, no fevers or chills. Weekend covering physician started gabapentin for possible phantom limb pain and she feels it has been somewhat beneficial. Objective: Vital Signs Temp Pulse Resp BP Pulse Ox 36.6 C 71 16 152/72 H 98 03/06/18 08:00 03/06/18 08:00 03/06/18 08:00 03/06/18 08:00 03/06/18 08:00 Laboratory Results 03/05/18 06:00 03/05/18 06:00 03/05/18 03/06/18 03/07/18 05:59 05:59 05:59 Intake Total 500 1200 240 Output Total 1200 2400 440 Balance -700 -1200 -200 Physical Exam - Physical Exam General Appearance: WD/WN, alert, no apparent distress Respiratory: No respiratory distress, No accessory muscle use Skin: normal color, warm/dry Neuro/Psych: alert, normal mood/affect, oriented x 3 ICD10 Worksheet Patient Problems: Problems Problem Status Onset Peripheral vascular disease due to secondary diabetes Acute Peripheral vascular disease of extremity with claudication Acute
[2018-03-06] MEDS: ACETAMINOPHEN 500 MG TAB PO SCH ×2 (12:18→20:34)
[2018-03-06] MEDS ORDERED: ACETAMINOPHEN 325 MG TAB PO SCH (14:00)
[2018-03-06] MEDS: INSULIN GLARGINE 100 UNITS/ML UNIT SC SCH (14:10)
[2018-03-07] MEDS: LEVOTHYROXINE 75 MCG TAB PO SCH (05:19)
[2018-03-07] MEDS: BETHANECHOL 10 MG TAB PO SCH ×4 (05:19→21:24)
[2018-03-07] MEDS: CEPHALEXIN 500 MG CAP PO SCH ×4 (05:19→23:11)
[2018-03-07] MEDS: ACETAMINOPHEN 500 MG TAB PO SCH ×3 (05:19→21:18)
[2018-03-07] MEDS: GABAPENTIN 100 MG CAP PO SCH ×3 (08:29→21:19)
[2018-03-07] MEDS: LOSARTAN POTASSIUM 50 MG TAB PO SCH (08:29)
[2018-03-07] MEDS: CHOLECALCIFEROL VIT D3 1,000 UNITS TAB PO SCH (08:29)
[2018-03-07] MEDS: PRESERVISION AREDS2 FORMULA EYE VIT 1 EACH PO SCH (08:29)
[2018-03-07] MEDS: TAMSULOSIN HCL 0.4 MG CAP PO SCH (08:30)
[2018-03-07] MEDS: SODIUM CHLORIDE 1,000 MG TAB PO SCH ×3 (08:30→12:51)
[2018-03-07] MEDS: PRAVASTATIN SODIUM 40 MG TAB PO SCH (08:30)
[2018-03-07] MEDS: SENNOSIDES 1 TAB PO SCH ×2 (08:30→21:20)
[2018-03-07] MEDS: ENOXAPARIN 40 MG/0.4 ML SYR SC SCH (08:45)
--- NOTE | 2018-03-07 11:14 | WOCRNPDOC ---
WOCRN Advanced Assessment Note - Skin Integrity Problem, Advanced Assess Left Medial Thigh Dressing Type: Allevyn Life, Collagen (dried), Plain Packing Dressing Description: Clean/Dry, Intact Exudate Amount: Scant Exudate Characteristic(s): Serous Integumentary Issue Intervention: Dressing Changed Brenda Wound Swelling: None Wound Bed Color: Red Wound Bed Constitution: Granulation Tissue (100%) Wound Edges: Not Attached Site Measurement - Head-to-Toe Length X Width X Depth (cm): 0.9x0.6x0.5 Skin Integrity Problem Comment: Wound is filling in and healing well. Will update wound care orders to remove the packing at this point and just fill with collagen. Wound care will round again next week if patient is in house. Sacrum Pressure Injury Dressing Type: Mepilex Border Dressing Description: Clean/Dry, Intact Exudate Amount: Scant Exudate Characteristic(s): Serous Integumentary Issue Intervention: Visualized Under Dressing, Hydrogel Applied Brenda Wound Tissue: Blanching, Erythema Wound Bed Constitution: Red/[place] - Non Granular Tissue (100%) Site Measurement - Head-to-Toe Length X Width X Depth (cm): 5x3x0 is the size of the DTI with a partial thickness opening on right sacrum that measures: 1.3x1.5x0.1 Pressure Injury Stage: Deep Tissue Injury (DTI) Pressure Injury Present on Admit: Yes Skin Integrity Problem Comment: Evolving DTI now with partial thickness opening. Wound is looking better than anticipated. Continue plan of care. Wound care will round again next week if patient is in house.
--- NOTE | 2018-03-07 13:14 | SOAPPROG ---
SOAP Progress Note Assessment/Plan: Assessment: Impaired mobility and activities of daily living due to left [id number] amputation: * Initial functional independence measure 69 on 03/03/2018. Contact guard assist for bed mobility. Has ambulated 10 ft x 2 with a front wheeled walker and standby assist.. Has self-propelled wheelchair 150 ft. Minimal assist for upper body dressing, minimal to moderate assist for lower body dressing. Bath transfer with minimal to moderate assist, bathing with minimal assist. Toilet transfer with minimal assist. * Continue PT and OT to optimize mobility and activities of daily living towards the independent or modified independent level. * D/W Malena, starch treating assistant for Dr. Schumacher, 03/03/2018. Orthotics consult for residual limb protector. Pain management: * Discontinued sustained release morphine on 03/02/2018. Has not used any opiates since 03/01/2018. * Continue scheduled acetaminophen 1000 mg q.8 hours starting 03/06/2018, and ibuprofen p.r.n.. Hypoxia and reduced respiratory rate morning of 03/01/2018. * Holding sustained release morphine this morning. Encourage incentive spirometry. * CBC 03/01/2018 showed elevated white count, otherwise within normal limits. BNP was not consistent with congestive heart failure. * Hypoxia has resolved. Hyponatremia on [facility], 03/01/2018. Normal serum osmolarity, low urine osmolality, low urine sodium, and reduced PO Intake documented over the past several days. Likely hypovolemic with appropriate ADH secretion. * Patient requests minimal blood draws. Will not place IV though if she would tolerate, IV normal saline would be appropriate. * Encourage p.o. hydration. Initiated sodium chloride tablets three times daily with meals. * Stable on [facility] 03/03/2018. Improved on [facility] 03/05/2018. * Discontinue NaCl supplement 03/07/2018 per patient's request. Hypertension: Continue losartan and monitor her blood pressure. * Blood pressure increased times 1-2 days, noted 03/06/2018. Possibly due to use of ibuprofen and/or NaCl. * Added acetaminophen for improved pain control. * Continue to monitor; consider addition of 2nd antihypertensive agent. Urinary retention. * She reports a history of urinary retention after a prior procedure years ago. She was able to straight catheterization herself at that time. * Initiated bethanechol and tamsulosin on 03/02/2018. Nursing reports that she is able to self-catheterize though she needs some assistance at times. Wound care: She will have dressing changes over the left residual limb every- other day and if it becomes saturated. 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 This has begun to heal. * Pressure ulcers over left sacrum and left heel. * Continue orders per wound nurse. Cellulitis at amputation incision. 10 days of cephalexin initiated 03/02/2018, after sending photo of incision to surgeon Dr. Schumacher. * Improved, with no signs of infection on exam 03/07/2018. Cognitive impairment. * Poor short-term memory noted by therapy staff and nursing. * May be exacerbated by interrupted sleep with interruptions for bladder scanning, catheterization, and repositioning. * Continue to monitor. Diabetes mellitus type 2: Continue insulin glargine. * Has only recurred rarely required sliding scale insulin during the day; will discontinue blood sugar checks and sliding scale insulin 03/03/2018. Constipation: * Continue senna 1 p.o. twice daily. Change polyethylene glycol to p.r.n. Starting 03/03/2018 continue bisacodyl suppository p.r.n. Hypothyroidism: Continue levothyroxine. * No TSH in the chart since 05/28/2018. Normal TSH 03/02/2018. Heart murmur. She is otherwise without current signs or symptoms of congestive heart failure. * Normal BNP 03/02/2018. She denies history of or current neuropathic pain. Pregabalin discontinued 03/01. She has pantoprazole ordered p.r.n. for acid reflux. She will be monitored for symptoms and will consider treating with calcium carbonate or other p.r.n. medication rather than a proton-pump inhibitor depending on frequency of symptoms and whether or not they are adequately controlled. Prophylaxis: She is at significantly elevated risk for a DVT based on age and major lower extremity amputation. We will initiate enoxaparin 40 mg subcutaneously daily. Optimal duration is unclear and we will research further. With history of peripheral vascular disease and prior use of clopidogrel, it is unclear why she is not on an anti-platelet agent, and this too will be researched further. DISPOSITION: Intends to return to living alone in a [facility] in [place]. Has 2 steps to enter the house. Has good family support. Plan for discharge home on 03/10/2018. Followup: She is to see Surgeon, Dr. Favian Schumacher, in approximately 10 to 14 days, which would be March 10, or the following week beginning March 13. DME: This patient requires a wheelchair. She has a mobility limitation that significantly impairs 1 or more mobility-related ADLs in the home, the functional mobility deficit cannot be resolved with a walker or cane, her home is adequate for accessing rooms, maneuvering space and surfaces, the wheelchair will significantly improve her ability to participate in mobility related ADLs and patient will repeat use it regularly. Patient has not expressed and unwillingness to use the wheelchair and she has sufficient physical and mental ability to safely use the wheelchair. She needs elevated leg rests as she has significant edema in the left lower extremity on which she had a [id number] amputation. She requires a specialty offloading seat cushion due to a sacral decubitus wound. 03/07/18 14:07 Subjective: Wants to stop taking the sodium chloride pill. Generally would like to take fewer medications. Otherwise without complaints. Pain is adequately controlled. Sleeping well. No cough or dyspnea, no fevers or chills. Objective: Vital Signs Temp Pulse Resp BP Pulse Ox 36.8 C 73 15 138/69 H 94 03/07/18 07:56 03/07/18 07:56 03/07/18 07:56 03/07/18 08:29 03/07/18 07:56 Laboratory Results 03/05/18 06:00 03/05/18 06:00 03/06/18 03/07/18 03/08/18 05:59 05:59 05:59 Intake Total 1200 1140 480 Output Total 2400 1040 Balance -1200 100 480 Physical Exam - Physical Exam General Appearance: WD/WN, alert, no apparent distress Respiratory: normal breath sounds, No crackles, No rhonchi, No wheezing Cardiac/Chest: regular rate, rhythm, No edema, No diastolic murmur, No systolic murmur Skin: normal color, warm/dry, other (Incision on residual limb without dehiscence, drainage or erythema. Sutures intact.) Neuro/Psych: no motor/sensory deficits, alert, normal mood/affect, oriented x 3 ICD10 Worksheet Patient Problems: Problems Problem Status Onset Peripheral vascular disease due to secondary diabetes Acute Peripheral vascular disease of extremity with claudication Acute
[2018-03-07] MEDS: INSULIN GLARGINE 100 UNITS/ML UNIT SC SCH (14:57)
[2018-03-08] MEDS: CEPHALEXIN 500 MG CAP PO SCH ×4 (05:09→23:59)
[2018-03-08] MEDS: LEVOTHYROXINE 75 MCG TAB PO SCH (05:09)
[2018-03-08] MEDS: BETHANECHOL 10 MG TAB PO SCH (05:10)
[2018-03-08] MEDS: ACETAMINOPHEN 500 MG TAB PO SCH ×3 (05:10→21:05)
[2018-03-08] MEDS: ENOXAPARIN 40 MG/0.4 ML SYR SC SCH (07:44)
[2018-03-08] MEDS: CHOLECALCIFEROL VIT D3 1,000 UNITS TAB PO SCH (08:19)
[2018-03-08] MEDS: TAMSULOSIN HCL 0.4 MG CAP PO SCH (08:19)
[2018-03-08] MEDS: LOSARTAN POTASSIUM 50 MG TAB PO SCH (08:19)
[2018-03-08] MEDS: PRAVASTATIN SODIUM 40 MG TAB PO SCH (08:19)
[2018-03-08] MEDS: PRESERVISION AREDS2 FORMULA EYE VIT 1 EACH PO SCH (08:19)
[2018-03-08] MEDS: GABAPENTIN 100 MG CAP PO SCH ×3 (08:19→21:05)
[2018-03-08] MEDS: SENNOSIDES 1 TAB PO SCH ×2 (08:22→18:26)
--- NOTE | 2018-03-08 12:15 | SOAPPROG ---
SOAP Progress Note Assessment/Plan: Assessment: Impaired mobility and activities of daily living due to left [id number] amputation: * Initial functional independence measure 69 on 03/03/2018, improved to 83 as of 03/08/2018. Standby assist for bed mobility, contact guard assist for transfers. Ambulated 30 ft with a front wheeled walker and contact guard assist. Self pulled wheelchair 150-200 feet needing assistance with ramps. Negotiated a forefoot curb step with minimal assist. Upper body dressing required standby assistance, lower body required contact guard assist. Shower transfer required minimal assist. She bathed with contact guard assist and to care of toilet hygiene with contact guard assist. * Continue PT and OT to optimize mobility and activities of daily living towards the independent or modified independent level. Pain management: * Discontinued sustained release morphine on 03/02/2018. Has not used any opiates since 03/01/2018. * Continue scheduled acetaminophen 1000 mg q.8 hours starting 03/06/2018, and ibuprofen p.r.n.. Hyponatremia on [facility], 03/01/2018. Normal serum osmolarity, low urine osmolality, low urine sodium, and reduced PO Intake documented over the past several days. Likely hypovolemic with appropriate ADH secretion. * Patient requests minimal blood draws. Will not place IV though if she would tolerate, IV normal saline would be appropriate. * Encourage p.o. hydration. Initiated sodium chloride tablets three times daily with meals. * Stable on [facility] 03/03/2018. Improved on [facility] 03/05/2018. * Discontinue NaCl supplement 03/07/2018 per patient's request. Hypertension: Continue losartan and monitor her blood pressure. * Blood pressure increased times 1-2 days, noted 03/06/2018. Possibly due to use of ibuprofen and/or NaCl. * Added acetaminophen for improved pain control. * Continue to monitor; consider addition of 2nd antihypertensive agent. Urinary retention. * She reports a history of urinary retention after a prior procedure years ago. She was able to straight catheterization herself at that time. * Initiated bethanechol and tamsulosin on 03/02/2018; discontinue 03/08/2018 due to lack of efficacy. * Continuing self catheterization training by nursing. Wound care: She will have dressing changes over the left residual limb every- other day and if it becomes saturated. 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 This has begun to heal. * Pressure ulcers over left sacrum and left heel. * Continue orders per wound nurse. Cellulitis at amputation incision. 10 days of cephalexin initiated 03/02/2018, after sending photo of incision to surgeon Dr. Schumacher. * Improved, with no signs of infection on exam 03/07/2018. Cognitive impairment. * Poor short-term memory noted by therapy staff and nursing. * May be exacerbated by interrupted sleep with interruptions for bladder scanning, catheterization, and repositioning. * Continue to monitor. Diabetes mellitus type 2: Continue insulin glargine. * Has only recurred rarely required sliding scale insulin during the day; will discontinue blood sugar checks and sliding scale insulin 03/03/2018. Constipation: * All laxatives PRN. Hypoxia and reduced respiratory rate morning of 03/01/2018, resolved Due to opiates?. Hypothyroidism: Continue levothyroxine. * No TSH in the chart since 05/28/2018. Normal TSH 03/02/2018. Heart murmur. She is otherwise without current signs or symptoms of congestive heart failure. * Normal BNP 03/02/2018. She denies history of or current neuropathic pain. Pregabalin discontinued 03/01. She has pantoprazole ordered p.r.n. for acid reflux. She will be monitored for symptoms and will consider treating with calcium carbonate or other p.r.n. medication rather than a proton-pump inhibitor depending on frequency of symptoms and whether or not they are adequately controlled. Prophylaxis: She is at significantly elevated risk for a DVT based on age and major lower extremity amputation. We will initiate enoxaparin 40 mg subcutaneously daily. Optimal duration is unclear and we will research further. With history of peripheral vascular disease and prior use of clopidogrel, it is unclear why she is not on an anti-platelet agent, and this too will be researched further. DISPOSITION: Attended staffing, 15 min. Discussed with case management, PT, OT , nurse, dietitian Intends to return to living alone in a [facility] in [place]. Will likely discharge to the home of a son or a daughter, due to 2 steps to enter at her own home. Plan for discharge home on 03/17/2018. Followup: She is to see Surgeon, Dr. Favian Schumacher 10 - 14 days after hospital discharge, or March 10 or the following week beginning March 13. Left message with ADIEL Bahena for Dr. Schumacher, 03/08/2018. DME: This patient requires a wheelchair. She has a mobility limitation that significantly impairs 1 or more mobility-related ADLs in the home, the functional mobility deficit cannot be resolved with a walker or cane, her home is adequate for accessing rooms, maneuvering space and surfaces, the wheelchair will significantly improve her ability to participate in mobility related ADLs and patient will repeat use it regularly. Patient has not expressed and unwillingness to use the wheelchair and she has sufficient physical and mental ability to safely use the wheelchair. She needs elevated leg rests as she has significant edema in the left lower extremity on which she had a [id number] amputation. She requires a specialty offloading seat cushion due to a sacral decubitus wound. 03/08/18 14:35 Subjective: No complaints. Pain adequately controlled. Nurse has noted loose stools. Learning had a self catheterization with nursing. Objective: Vital Signs Temp Pulse Resp BP Pulse Ox 37.1 C 67 18 135/67 H 93 03/08/18 07:08 03/08/18 07:08 03/08/18 07:08 03/08/18 08:19 03/08/18 07:08 Laboratory Results 03/05/18 06:00 03/05/18 06:00 03/07/18 03/08/18 03/09/18 05:59 05:59 05:59 Intake Total 1140 830 260 Output Total 1040 1550 Balance 100 -720 260 - Time Spent With Patient Time Spent With Patient: Greater than 35 min floor time today, including more than 50% of time in coordination of care during staffing, and counseling patient. Physical Exam - Physical Exam General Appearance: WD/WN, alert, no apparent distress Respiratory: No respiratory distress, No accessory muscle use Skin: normal color, warm/dry Neuro/Psych: alert, normal mood/affect, oriented x 3, other (Standing at table with OT assembling puzzle, increasing standing endurance.) ICD10 Worksheet Patient Problems: Problems Problem Status Onset Peripheral vascular disease due to secondary diabetes Acute Peripheral vascular disease of extremity with claudication Acute
[2018-03-08] MEDS: INSULIN GLARGINE 100 UNITS/ML UNIT SC SCH (14:59)
[2018-03-08] MEDS: IBUPROFEN 200 MG TAB PO PRN (15:05)
[2018-03-09] MEDS: LEVOTHYROXINE 75 MCG TAB PO SCH (06:26)
[2018-03-09] MEDS: CEPHALEXIN 500 MG CAP PO SCH ×2 (06:26→12:14)
[2018-03-09] MEDS: ACETAMINOPHEN 500 MG TAB PO SCH ×3 (06:26→21:44)
[2018-03-09] MEDS: PRAVASTATIN SODIUM 40 MG TAB PO SCH (08:53)
[2018-03-09] MEDS: ENOXAPARIN 40 MG/0.4 ML SYR SC SCH (08:53)
[2018-03-09] MEDS: PRESERVISION AREDS2 FORMULA EYE VIT 1 EACH PO SCH (08:53)
[2018-03-09] MEDS: GABAPENTIN 100 MG CAP PO SCH ×3 (08:53→21:44)
[2018-03-09] MEDS: LOSARTAN POTASSIUM 50 MG TAB PO SCH (08:54)
[2018-03-09] MEDS: CHOLECALCIFEROL VIT D3 1,000 UNITS TAB PO SCH (08:54)
[2018-03-09] MEDS: METHOCARBAMOL 750 MG TAB PO PRN (10:44)
[2018-03-09] MEDS: SENNOSIDES 1 TAB PO SCH (10:46)
[2018-03-09] MEDS ORDERED: CEPHALEXIN 500 MG CAP PO SCH (15:37)
--- NOTE | 2018-03-09 15:41 | SOAPPROG ---
SOAP Progress Note Assessment/Plan: Assessment: Impaired mobility and activities of daily living due to left [id number] amputation: * Initial functional independence measure 69 on 03/03/2018, improved to 83 as of 03/08/2018. Standby assist for bed mobility, contact guard assist for transfers. Ambulated 30 ft with a front wheeled walker and contact guard assist. Self pulled wheelchair 150-200 feet needing assistance with ramps. Negotiated a forefoot curb step with minimal assist. Upper body dressing required standby assistance, lower body required contact guard assist. Shower transfer required minimal assist. She bathed with contact guard assist and to care of toilet hygiene with contact guard assist. * Was unable to accomplish car transfer today, 03/09/2018, into an [facility] as the seat to which she was transferring was too far off the ground. * Continue PT and OT to optimize mobility and activities of daily living towards the independent or modified independent level. Pain management: * Discontinued sustained release morphine on 03/02/2018. Has not used any opiates since 03/01/2018. * Continue scheduled acetaminophen 1000 mg q.8 hours starting 03/06/2018, and ibuprofen p.r.n.. * Methocarbamol as needed for muscle spasm. Hyponatremia on [facility], 03/01/2018. Normal serum osmolarity, low urine osmolality, low urine sodium, and reduced PO Intake documented over the past several days. Likely hypovolemic with appropriate ADH secretion. * Patient requests minimal blood draws. Will not place IV though if she would tolerate, IV normal saline would be appropriate. * Encourage p.o. hydration. Initiated sodium chloride tablets three times daily with meals. * Stable on [facility] 03/03/2018. Improved on [facility] 03/05/2018. * Discontinue NaCl supplement 03/07/2018 per patient's request. Hypertension: Continue losartan and monitor her blood pressure. * Blood pressure increased at times, possibly due to use of ibuprofen and/or NaCl, though generally adequate control. * Added acetaminophen for improved pain control. * Continue to monitor; consider addition of 2nd antihypertensive agent. Urinary retention. * She reports a history of urinary retention after a prior procedure years ago. She was able to straight catheterization herself at that time. * Initiated bethanechol and tamsulosin on 03/02/2018; discontinue 03/08/2018 due to lack of efficacy. * Continuing self catheterization training by nursing. Wound care: She will have dressing changes over the left residual limb every- other day and if it becomes saturated. 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 This has begun to heal. * Pressure ulcers over left sacrum and left heel. * Continue orders per wound nurse. Cellulitis at amputation incision. 10 days of cephalexin initiated 03/02/2018, after sending photo of incision to surgeon Dr. Schumacher. * Improved, with no signs of infection on exam 03/07/2018. * Dose adjusted for renal insufficiency per advice of pharmacy, 03/09/2018. Cognitive impairment. * Poor short-term memory noted by therapy staff and nursing. * May be exacerbated by interrupted sleep with interruptions for bladder scanning, catheterization, and repositioning. * Continue to monitor. Diabetes mellitus type 2: Continue insulin glargine. * Has only recurred rarely required sliding scale insulin during the day; will discontinue blood sugar checks and sliding scale insulin 03/03/2018. Constipation: * All laxatives PRN. Hypoxia and reduced respiratory rate morning of 03/01/2018, resolved Due to opiates?. Hypothyroidism: Continue levothyroxine. * No TSH in the chart since 05/28/2018. Normal TSH 03/02/2018. Heart murmur. She is otherwise without current signs or symptoms of congestive heart failure. * Normal BNP 03/02/2018. She denies history of or current neuropathic pain. Pregabalin discontinued 03/01. * Gabapentin initiated per weekend coverage, weekend of 03/04/2018, for symptoms consistent with phantom limb pain. She has pantoprazole ordered p.r.n. for acid reflux. She will be monitored for symptoms and will consider treating with calcium carbonate or other p.r.n. medication rather than a proton-pump inhibitor depending on frequency of symptoms and whether or not they are adequately controlled. Prophylaxis: She is at significantly elevated risk for a DVT based on age and major lower extremity amputation. We will initiate enoxaparin 40 mg subcutaneously daily. Optimal duration is unclear and we will research further. With history of peripheral vascular disease and prior use of clopidogrel, it is unclear why she is not on an anti-platelet agent, and this too will be researched further. DISPOSITION: Attended family meeting, 30 min. Daughter and grandson present. Discussed with case management, nursing, PT, OT. Discharge option is include home of son or daughter. At son's home would need ramp constructed. Also considering assisted living facility. Plan for discharge 03/17/2018. Followup: She is to see Surgeon, Dr. Favian Schumacher after discharge from inpatient rehabilitation. DME: This patient requires a wheelchair. She has a mobility limitation that significantly impairs 1 or more mobility-related ADLs in the home, the functional mobility deficit cannot be resolved with a walker or cane, her home is adequate for accessing rooms, maneuvering space and surfaces, the wheelchair will significantly improve her ability to participate in mobility related ADLs and patient will repeat use it regularly. Patient has not expressed and unwillingness to use the wheelchair and she has sufficient physical and mental ability to safely use the wheelchair. She needs elevated leg rests as she has significant edema in the left lower extremity on which she had a [id number] amputation. She requires a specialty offloading seat cushion due to a sacral decubitus wound. 03/09/18 15:33 Subjective: Reports that she feels sore on her left residual limb. Nursing reports that she has complained of muscle spasm and been treated with methocarbamol today. Otherwise without complaints. No cough or dyspnea, no fevers or chills. Objective: Vital Signs Temp Pulse Resp BP Pulse Ox 36.4 C 69 14 143/60 H 97 03/09/18 06:43 03/09/18 06:43 03/09/18 06:43 03/09/18 08:54 03/09/18 06:43 Laboratory Results 03/05/18 06:00 03/05/18 06:00 03/08/18 03/09/18 03/10/18 05:59 05:59 05:59 Intake Total 830 680 300 Output Total 1550 835 500 Balance -720 -155 -200 - Time Spent With Patient Time Spent With Patient: Greater than 35 min floor time today, including more than 50% of time in coordination of care and counseling patient and family during family meeting. Physical Exam - Physical Exam General Appearance: WD/WN, alert, no apparent distress Respiratory: No respiratory distress, No accessory muscle use Skin: normal color, warm/dry Neuro/Psych: no motor/sensory deficits, alert, normal mood/affect, oriented x 3 ICD10 Worksheet Patient Problems: Problems Problem Status Onset Peripheral vascular disease due to secondary diabetes Acute Peripheral vascular disease of extremity with claudication Acute
[2018-03-09] MEDS: INSULIN GLARGINE 100 UNITS/ML UNIT SC SCH (15:47)
[2018-03-09] MEDS: CEPHALEXIN 250 MG CAP PO SCH ×2 (18:19→21:49)
[2018-03-10] MEDS: LEVOTHYROXINE 75 MCG TAB PO SCH (05:44)
[2018-03-10] MEDS: CEPHALEXIN 250 MG CAP PO SCH ×4 (05:44→23:07)
[2018-03-10] MEDS: ACETAMINOPHEN 500 MG TAB PO SCH ×3 (05:44→20:54)
[2018-03-10] MEDS: PRESERVISION AREDS2 FORMULA EYE VIT 1 EACH PO SCH (08:50)
[2018-03-10] MEDS: CHOLECALCIFEROL VIT D3 1,000 UNITS TAB PO SCH (08:50)
[2018-03-10] MEDS: GABAPENTIN 100 MG CAP PO SCH ×3 (08:50→20:54)
[2018-03-10] MEDS: LOSARTAN POTASSIUM 50 MG TAB PO SCH (08:50)
[2018-03-10] MEDS: PRAVASTATIN SODIUM 40 MG TAB PO SCH (08:50)
[2018-03-10] MEDS: ENOXAPARIN 40 MG/0.4 ML SYR SC SCH (08:50)
--- NOTE | 2018-03-10 12:19 | SOAPPROG ---
SOAP Progress Note Assessment/Plan: Assessment: Impaired mobility and activities of daily living due to left [id number] amputation: * Initial functional independence measure 69 on 03/03/2018, improved to 83 as of 03/08/2018. Standby assist for bed mobility, contact guard assist for transfers. Ambulated 30 ft with a front wheeled walker and contact guard assist. Self pro pelvic wheelchair 150-200 feet needing assistance with ramps. Negotiated a 4" curb step with minimal assist. Upper body dressing required standby assistance, lower body required contact guard assist. Shower transfer required minimal assist. She bathed with contact guard assist and to care of toilet hygiene with contact guard assist. * Was unable to accomplish car transfer today, 03/09/2018, into an [facility] as the seat to which she was transferring was too far off the ground. * Continue PT and OT to optimize mobility and activities of daily living towards the independent or modified independent level. Pain management: * Discontinued sustained release morphine on 03/02/2018. Has not used any opiates since 03/01/2018. * Continue scheduled acetaminophen 1000 mg q.8 hours starting 03/06/2018, and ibuprofen p.r.n.. * Methocarbamol as needed for muscle spasm. Hyponatremia on [facility], 03/01/2018. Normal serum osmolarity, low urine osmolality, low urine sodium, and reduced PO Intake documented over the past several days. Likely hypovolemic with appropriate ADH secretion. * Patient requests minimal blood draws. Will not place IV though if she would tolerate, IV normal saline would be appropriate. * Encourage p.o. hydration. Initiated sodium chloride tablets three times daily with meals. * Stable on [facility] 03/03/2018. Improved on [facility] 03/05/2018. * Discontinue NaCl supplement 03/07/2018 per patient's request. Hypertension: Continue losartan and monitor her blood pressure. * Blood pressure increased at times, possibly due to use of ibuprofen and/or NaCl, though generally adequate control. * Added acetaminophen for improved pain control. * Continue to monitor; consider addition of 2nd antihypertensive agent. Urinary retention. * She reports a history of urinary retention after a prior procedure years ago. She was able to straight catheterization herself at that time. * Initiated bethanechol and tamsulosin on 03/02/2018; discontinue 03/08/2018 due to lack of efficacy. * Continuing self catheterization training by nursing. * Appears to be resolving 03/10/2018. Wound care: She will have dressing changes over the left residual limb every- other day and if it becomes saturated. 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 This has begun to heal. * Pressure ulcers over left sacrum and left heel. * Continue orders per wound nurse. Cellulitis at amputation incision. 10 days of cephalexin initiated 03/02/2018, after sending photo of incision to surgeon Dr. Schumacher. * Improved, with no signs of infection on exam 03/07/2018. * Dose adjusted for renal insufficiency per advice of pharmacy, 03/09/2018. Cognitive impairment. * Poor short-term memory noted by therapy staff and nursing. * Improving. Diabetes mellitus type 2: Continue insulin glargine. * Has only recurred rarely required sliding scale insulin during the day; will discontinue blood sugar checks and sliding scale insulin 03/03/2018. Constipation: * All laxatives PRN. Hypoxia and reduced respiratory rate morning of 03/01/2018, resolved Due to opiates?. Hypothyroidism: Continue levothyroxine. * No TSH in the chart since 05/28/2018. Normal TSH 03/02/2018. Heart murmur. She is otherwise without current signs or symptoms of congestive heart failure. * Normal BNP 03/02/2018. She denies history of or current neuropathic pain. Pregabalin discontinued 03/01. * Gabapentin initiated per weekend coverage, weekend of 03/04/2018, for symptoms consistent with phantom limb pain. She has pantoprazole ordered p.r.n. for acid reflux. She will be monitored for symptoms and will consider treating with calcium carbonate or other p.r.n. medication rather than a proton-pump inhibitor depending on frequency of symptoms and whether or not they are adequately controlled. Prophylaxis: She is at significantly elevated risk for a DVT based on age and major lower extremity amputation. We will initiate enoxaparin 40 mg subcutaneously daily. Optimal duration is unclear and we will research further. With history of peripheral vascular disease and prior use of clopidogrel, it is unclear why she is not on an anti-platelet agent, and this too will be researched further. DISPOSITION: Discharge option is include home of son or daughter. At son's home would need ramp constructed. Also considering assisted living facility. Plan for discharge 03/17/2018. Followup: She is to see Surgeon, Dr. Favian Schumacher after discharge from inpatient rehabilitation. DME: This patient requires a wheelchair. She has a mobility limitation that significantly impairs 1 or more mobility-related ADLs in the home, the functional mobility deficit cannot be resolved with a walker or cane, her home is adequate for accessing rooms, maneuvering space and surfaces, the wheelchair will significantly improve her ability to participate in mobility related ADLs and patient will repeat use it regularly. Patient has not expressed and unwillingness to use the wheelchair and she has sufficient physical and mental ability to safely use the wheelchair. She needs elevated leg rests as she has significant edema in the left lower extremity on which she had a [id number] amputation. She requires a specialty offloading seat cushion due to a sacral decubitus wound. 03/10/18 12:16 Subjective: No complaints. Minimal pain. Sleeping well. Endurance is improving. Urinary retention is resolving and she is able to void on her own without catheterization this morning. Objective: Vital Signs Temp Pulse Resp BP Pulse Ox 36.8 C 68 18 141/72 H 97 03/10/18 08:00 03/10/18 08:00 03/10/18 08:00 03/10/18 08:50 03/10/18 08:00 Laboratory Results 03/05/18 06:00 03/05/18 06:00 03/09/18 03/10/18 03/11/18 05:59 05:59 05:59 Intake Total 680 700 360 Output Total 835 1450 100 Balance -155 -750 260 Physical Exam - Physical Exam General Appearance: WD/WN, alert, no apparent distress Respiratory: normal breath sounds, No crackles, No rhonchi, No wheezing Cardiac/Chest: regular rate, rhythm, No diastolic murmur, No systolic murmur Skin: normal color, warm/dry Neuro/Psych: no motor/sensory deficits, alert, normal mood/affect, oriented x 3 ICD10 Worksheet Patient Problems: Problems Problem Status Onset Peripheral vascular disease due to secondary diabetes Acute Peripheral vascular disease of extremity with claudication Acute
[2018-03-10] MEDS: INSULIN GLARGINE 100 UNITS/ML UNIT SC SCH (14:19)
[2018-03-11] MEDS: LEVOTHYROXINE 75 MCG TAB PO SCH (06:19)
[2018-03-11] MEDS: ACETAMINOPHEN 500 MG TAB PO SCH ×3 (06:19→21:16)
[2018-03-11] MEDS: CEPHALEXIN 250 MG CAP PO SCH ×4 (06:19→23:47)
[2018-03-11] MEDS: PRESERVISION AREDS2 FORMULA EYE VIT 1 EACH PO SCH (08:34)
[2018-03-11] MEDS: ENOXAPARIN 40 MG/0.4 ML SYR SC SCH (08:34)
[2018-03-11] MEDS: GABAPENTIN 100 MG CAP PO SCH ×3 (08:34→21:15)
[2018-03-11] MEDS: CHOLECALCIFEROL VIT D3 1,000 UNITS TAB PO SCH (08:34)
[2018-03-11] MEDS: PRAVASTATIN SODIUM 40 MG TAB PO SCH (08:34)
[2018-03-11] MEDS: LOSARTAN POTASSIUM 50 MG TAB PO SCH (08:34)
--- NOTE | 2018-03-11 11:30 | SOAPPROG ---
SOAP Progress Note Assessment/Plan: Assessment: Impaired mobility and activities of daily living due to left [id number] amputation: * Initial functional independence measure 69 on 03/03/2018, improved to 83 as of 03/08/2018. Standby assist for bed mobility, contact guard assist for transfers. Ambulated 30 ft with a front wheeled walker and contact guard assist. Self pro pelvic wheelchair 150-200 feet needing assistance with ramps. Negotiated a 4" curb step with minimal assist. Upper body dressing required standby assistance, lower body required contact guard assist. Shower transfer required minimal assist. She bathed with contact guard assist and to care of toilet hygiene with contact guard assist. * Was unable to accomplish car transfer today, 03/09/2018, into an [facility] as the seat to which she was transferring was too far off the ground. * Continue PT and OT to optimize mobility and activities of daily living towards the independent or modified independent level. Pain management: CURRENTLY PAIN IS NOT AN ISSUE. SHE DOES NOT HAVE SIGNIFICANT PHANTOM LIMB PAIN OR SENSATION. * Discontinued sustained release morphine on 03/02/2018. Has not used any opiates since 03/01/2018. * Continue scheduled acetaminophen 1000 mg q.8 hours starting 03/06/2018, and ibuprofen p.r.n.. * Methocarbamol as needed for muscle spasm. Hyponatremia on [facility], 03/01/2018. Normal serum osmolarity, low urine osmolality, low urine sodium, and reduced PO Intake documented over the past several days. Likely hypovolemic with appropriate ADH secretion. * Patient requests minimal blood draws. Will not place IV though if she would tolerate, IV normal saline would be appropriate. * Encourage p.o. hydration. Initiated sodium chloride tablets three times daily with meals. * Stable on [facility] 03/03/2018. Improved on [facility] 03/05/2018. * Discontinue NaCl supplement 03/07/2018 per patient's request. Hypertension: Continue losartan and monitor her blood pressure. BLOOD PRESSURE THIS MORNING 145/69 * Blood pressure increased at times, possibly due to use of ibuprofen and/or NaCl, though generally adequate control. * Added acetaminophen for improved pain control. * Continue to monitor; consider addition of 2nd antihypertensive agent. Urinary retention. * She reports a history of urinary retention after a prior procedure years ago. She was able to straight catheterization herself at that time. * Initiated bethanechol and tamsulosin on 03/02/2018; discontinue 03/08/2018 due to lack of efficacy. * Continuing self catheterization training by nursing. * Appears to be resolving 03/10/2018. Wound care: She will have dressing changes over the left residual limb every- other day and if it becomes saturated. 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 This has begun to heal. * Pressure ulcers over left sacrum and left heel. * Continue orders per wound nurse. Cellulitis at amputation incision. 10 days of cephalexin initiated 03/02/2018, after sending photo of incision to surgeon Dr. Schumacher. * Improved, with no signs of infection on exam 03/07/2018. * Dose adjusted for renal insufficiency per advice of pharmacy, 03/09/2018. Cognitive impairment. * Poor short-term memory noted by therapy staff and nursing. * Improving. Diabetes mellitus type 2: Continue insulin glargine. * Has only recurred rarely required sliding scale insulin during the day; will discontinue blood sugar checks and sliding scale insulin 03/03/2018. Constipation: * All laxatives PRN. Hypoxia and reduced respiratory rate morning of 03/01/2018, resolved Due to opiates?. Hypothyroidism: Continue levothyroxine. * No TSH in the chart since 05/28/2018. Normal TSH 03/02/2018. Heart murmur. She is otherwise without current signs or symptoms of congestive heart failure. * Normal BNP 03/02/2018. She denies history of or current neuropathic pain. Pregabalin discontinued 03/01. * Gabapentin initiated per weekend coverage, weekend of 03/04/2018, for symptoms consistent with phantom limb pain. She has pantoprazole ordered p.r.n. for acid reflux. She will be monitored for symptoms and will consider treating with calcium carbonate or other p.r.n. medication rather than a proton-pump inhibitor depending on frequency of symptoms and whether or not they are adequately controlled. Prophylaxis: She is at significantly elevated risk for a DVT based on age and major lower extremity amputation. We will initiate enoxaparin 40 mg subcutaneously daily. Optimal duration is unclear and we will research further. With history of peripheral vascular disease and prior use of clopidogrel, it is unclear why she is not on an anti-platelet agent, and this too will be researched further. DISPOSITION: Discharge option is include home of son or daughter. At son's home would need ramp constructed. Also considering assisted living facility. Plan for discharge 03/17/2018. Followup: She is to see Surgeon, Dr. Favian Schumacher after discharge from inpatient rehabilitation. DME: This patient requires a wheelchair. She has a mobility limitation that significantly impairs 1 or more mobility-related ADLs in the home, the functional mobility deficit cannot be resolved with a walker or cane, her home is adequate for accessing rooms, maneuvering space and surfaces, the wheelchair will significantly improve her ability to participate in mobility related ADLs and patient will repeat use it regularly. Patient has not expressed and unwillingness to use the wheelchair and she has sufficient physical and mental ability to safely use the wheelchair. She needs elevated leg rests as she has significant edema in the left lower extremity on which she had a [id number] amputation. She requires a specialty offloading seat cushion due to a sacral decubitus wound. Plan: 03/11/18 11:26 Subjective: NO COMPLAINTS THIS MORNING. SHE REPORTS SHE IS TOLERATING THERAPIES WELL. SHE REPORTS MILD LEFT PHANTOM LIMB SENSATION BUT DENIES SAYDA PHANTOM LIMB PAIN. PHANTOM SENSATION IS NOT INTERFERING WITH SLEEP OR THERAPY RELATED ACTIVITIES. Objective: Vital Signs Temp Pulse Resp BP Pulse Ox 37.1 C 71 17 145/69 H 98 03/11/18 08:00 03/11/18 08:00 03/11/18 08:00 03/11/18 08:34 03/11/18 08:00 Laboratory Results 03/05/18 06:00 03/05/18 06:00 03/10/18 03/11/18 03/12/18 05:59 05:59 05:59 Intake Total 700 510 360 Output Total 1450 2125 Balance -750 -1615 360 Physical Exam - Physical Exam General Appearance: WD/WN, alert, no apparent distress Respiratory: lungs clear, normal breath sounds Abdomen: non-tender, soft Skin: other (INCISION OVER LEFT RESIDUAL LIMB IS HEALING WELL WITHOUT DRAINAGE. SOFT TISSUES BENEATH THE INCISION OR EASILY MOBILIZED. NO BONY PROMINENCES.) Extremities: No swelling, No Curtis's sign Neuro/Psych: motor weakness (4/5 STRENGTH BOTH UPPER EXTREMITIES AND RIGHT LOWER EXTREMITY. LEFT KNEE FLEXION AND EXTENSION SOMEWHAT TENTATIVE WITH PAIN INHIBITION DUE TO RESIDUAL LIMB PAIN.) ICD10 Worksheet Patient Problems: Problems Problem Status Onset Peripheral vascular disease due to secondary diabetes Acute Peripheral vascular disease of extremity with claudication Acute
[2018-03-11] MEDS: INSULIN GLARGINE 100 UNITS/ML UNIT SC SCH (14:58)
[2018-03-12] MEDS: IBUPROFEN 200 MG TAB PO PRN ×2 (03:37→09:53)
[2018-03-12] MEDS: CEPHALEXIN 250 MG CAP PO SCH ×2 (06:12→12:07)
[2018-03-12] MEDS: ACETAMINOPHEN 500 MG TAB PO SCH ×3 (06:12→21:09)
[2018-03-12] MEDS: LEVOTHYROXINE 75 MCG TAB PO SCH (06:12)
[2018-03-12] MEDS: PRAVASTATIN SODIUM 40 MG TAB PO SCH (08:31)
[2018-03-12] MEDS: PRESERVISION AREDS2 FORMULA EYE VIT 1 EACH PO SCH (08:31)
[2018-03-12] MEDS: ENOXAPARIN 40 MG/0.4 ML SYR SC SCH (08:31)
[2018-03-12] MEDS: CHOLECALCIFEROL VIT D3 1,000 UNITS TAB PO SCH (08:31)
[2018-03-12] MEDS: GABAPENTIN 100 MG CAP PO SCH ×3 (08:31→21:08)
[2018-03-12] MEDS: LOSARTAN POTASSIUM 50 MG TAB PO SCH (08:32)
[2018-03-12] MEDS: METHOCARBAMOL 750 MG TAB PO PRN (08:37)
--- NOTE | 2018-03-12 11:49 | SOAPPROG ---
SOAP Progress Note Assessment/Plan: Assessment: Impaired mobility and activities of daily living due to left [id number] amputation: * Initial functional independence measure 69 on 03/03/2018, improved to 83 as of 03/08/2018. Standby assist for bed mobility, contact guard assist for transfers. Ambulated 50 ft with a front wheeled walker and contact guard assist. Self pro pelvic wheelchair 150-200 feet needing assistance with ramps. Negotiated a 4" curb step with minimal assist. Upper body dressing required standby assistance, lower body required contact guard assist. Shower transfer required minimal assist. She bathed with contact guard assist and to care of toilet hygiene with contact guard assist. * Was unable to accomplish car transfer today, 03/09/2018, into an [facility] as the seat to which she was transferring was too far off the ground. * Continue PT and OT to optimize mobility and activities of daily living towards the independent or modified independent level. Pain management: SHE REPORTED AN EPISODE OF PHANTOM LIMB PAIN AND IF THIS CONTINUES WE WILL CONSIDER INCREASING GABAPENTIN DOSAGE * Discontinued sustained release morphine on 03/02/2018. Has not used any opiates since 03/01/2018. * Continue scheduled acetaminophen 1000 mg q.8 hours starting 03/06/2018, and ibuprofen p.r.n.. * Methocarbamol as needed for muscle spasm. Hyponatremia on [facility], 03/01/2018. Normal serum osmolarity, low urine osmolality, low urine sodium, and reduced PO Intake documented over the past several days. Likely hypovolemic with appropriate ADH secretion. * Patient requests minimal blood draws. Will not place IV though if she would tolerate, IV normal saline would be appropriate. * Encourage p.o. hydration. Initiated sodium chloride tablets three times daily with meals. * Stable on [facility] 03/03/2018. Improved on [facility] 03/05/2018. * Discontinue NaCl supplement 03/07/2018 per patient's request. Hypertension: Continue losartan and monitor her blood pressure. BLOOD PRESSURE THIS MORNING 152/84 * Blood pressure increased at times, possibly due to use of ibuprofen and/or NaCl, though generally adequate control. * Added acetaminophen for improved pain control. * Continue to monitor; consider addition of 2nd antihypertensive agent. Urinary retention. * She reports a history of urinary retention after a prior procedure years ago. She was able to straight catheterization herself at that time. * Initiated bethanechol and tamsulosin on 03/02/2018; discontinue 03/08/2018 due to lack of efficacy. * Continuing self catheterization training by nursing. * Appears to be resolving 03/10/2018. MONITOR POSTVOID RESIDUALS. Wound care: She will have dressing changes over the left residual limb every- other day and if it becomes saturated. 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 This has begun to heal. * Pressure ulcers over left sacrum and left heel. * Continue orders per wound nurse. Cellulitis at amputation incision. 10 days of cephalexin initiated 03/02/2018, after sending photo of incision to surgeon Dr. Schumacher. * Improved, with no signs of infection on exam 03/07/2018. * Dose adjusted for renal insufficiency per advice of pharmacy, 03/09/2018. Cognitive impairment. * Poor short-term memory noted by therapy staff and nursing. * Improving. Diabetes mellitus type 2: Continue insulin glargine. * Has only recurred rarely required sliding scale insulin during the day; will discontinue blood sugar checks and sliding scale insulin 03/03/2018. Constipation: * All laxatives PRN. Hypoxia and reduced respiratory rate morning of 03/01/2018, resolved Due to opiates?. Hypothyroidism: Continue levothyroxine. * No TSH in the chart since 05/28/2018. Normal TSH 03/02/2018. Heart murmur. She is otherwise without current signs or symptoms of congestive heart failure. * Normal BNP 03/02/2018. She denies history of or current neuropathic pain. Pregabalin discontinued 03/01. * Gabapentin initiated per weekend coverage, weekend of 03/04/2018, for symptoms consistent with phantom limb pain. SHE REPORTED SOME PHANTOM LIMB PAIN LAST NIGHT AND WAS GIVEN PAIN MEDICATIONS. WILL REVIEW CURRENT DOSE OF GABAPENTIN. She has pantoprazole ordered p.r.n. for acid reflux. She will be monitored for symptoms and will consider treating with calcium carbonate or other p.r.n. medication rather than a proton-pump inhibitor depending on frequency of symptoms and whether or not they are adequately controlled. Prophylaxis: She is at significantly elevated risk for a DVT based on age and major lower extremity amputation. We will initiate enoxaparin 40 mg subcutaneously daily. Optimal duration is unclear and we will research further. With history of peripheral vascular disease and prior use of clopidogrel, it is unclear why she is not on an anti-platelet agent, and this too will be researched further. DISPOSITION: Discharge option is include home of son or daughter. At son's home would need ramp constructed. Also considering assisted living facility. Plan for discharge 03/17/2018. Followup: She is to see Surgeon, Dr. Favian Schumacher after discharge from inpatient rehabilitation. DME: This patient requires a wheelchair. She has a mobility limitation that significantly impairs 1 or more mobility-related ADLs in the home, the functional mobility deficit cannot be resolved with a walker or cane, her home is adequate for accessing rooms, maneuvering space and surfaces, the wheelchair will significantly improve her ability to participate in mobility related ADLs and patient will repeat use it regularly. Patient has not expressed and unwillingness to use the wheelchair and she has sufficient physical and mental ability to safely use the wheelchair. She needs elevated leg rests as she has significant edema in the left lower extremity on which she had a [id number] amputation. She requires a specialty offloading seat cushion due to a sacral decubitus wound. Plan: 03/11/18 11:26 03/12/18 11:46 Subjective: SHE REPORTS SHE HAD SOME LEFT LOWER EXTREMITY PHANTOM PAIN YESTERDAY WHICH INTERFERED WITH HER SLEEP. THIS IMPROVED AFTER SHE WAS GIVEN PAIN MEDICATIONS. SHE REPORTS PHANTOM PAIN IS CRAMPING IN THE FOOT. SHE DENIES DYSURIA, SUPRAPUBIC PAIN OR FLANK PAIN. SHE CONTINUES CATHING HERSELF 1 TIME PER DAY. Objective: Vital Signs Temp Pulse Resp BP Pulse Ox 36.1 C 67 18 152/84 H 95 03/12/18 06:28 03/12/18 06:28 03/12/18 06:28 03/12/18 08:32 03/12/18 06:28 Laboratory Results 03/05/18 06:00 03/05/18 06:00 03/11/18 03/12/18 03/13/18 05:59 05:59 05:59 Intake Total 510 900 Output Total 7850 733 650 Balance -1615 775 -650 Physical Exam - Physical Exam General Appearance: alert, mild distress (SHE REPORTS SIGNIFICANT RESIDUAL LIMB PAIN HYPERSENSITIVITY.) Respiratory: lungs clear, normal breath sounds Abdomen: non-tender, soft Extremities: No Curtis's sign ICD10 Worksheet Patient Problems: Problems Problem Status Onset Peripheral vascular disease due to secondary diabetes Acute Peripheral vascular disease of extremity with claudication Acute
[2018-03-12] MEDS: INSULIN GLARGINE 100 UNITS/ML UNIT SC SCH (14:43)
[2018-03-13] MEDS: METHOCARBAMOL 750 MG TAB PO PRN (02:13)
[2018-03-13] MEDS: ACETAMINOPHEN 500 MG TAB PO SCH ×3 (05:39→21:07)
[2018-03-13] MEDS: LEVOTHYROXINE 75 MCG TAB PO SCH (05:44)
[2018-03-13] MEDS: GABAPENTIN 100 MG CAP PO SCH ×2 (09:22→21:08)
[2018-03-13] MEDS: ENOXAPARIN 40 MG/0.4 ML SYR SC SCH (09:22)
[2018-03-13] MEDS: CHOLECALCIFEROL VIT D3 1,000 UNITS TAB PO SCH (09:22)
[2018-03-13] MEDS: PRESERVISION AREDS2 FORMULA EYE VIT 1 EACH PO SCH (09:22)
[2018-03-13] MEDS: LOSARTAN POTASSIUM 50 MG TAB PO SCH (09:22)
[2018-03-13] MEDS: PRAVASTATIN SODIUM 40 MG TAB PO SCH (09:26)
--- NOTE | 2018-03-13 12:44 | SOAPPROG ---
SOAP Progress Note Assessment/Plan: Assessment: Impaired mobility and activities of daily living due to left [id number] amputation: * Initial functional independence measure 69 on 03/03/2018, improved to 83 as of 03/08/2018. Standby assist for bed mobility, contact guard assist for transfers. Ambulated 50 ft with a front wheeled walker and contact guard assist. Self pro pelvic wheelchair 150-200 feet needing assistance with ramps. Negotiated a 4" curb step with minimal assist. Upper body dressing required standby assistance, lower body required contact guard assist. Shower transfer required minimal assist. She bathed with contact guard assist and to care of toilet hygiene with contact guard assist. * Continue PT and OT to optimize mobility and activities of daily living towards the independent or modified independent level. Pain management: She reports more residual limb pain than phantom pain. Will increase dosage of gabapentin today * Discontinued sustained release morphine on 03/02/2018. Has not used any opiates since 03/01/2018. * Continue scheduled acetaminophen 1000 mg q.8 hours starting 03/06/2018, and ibuprofen p.r.n.. * Methocarbamol as needed for muscle spasm. Hyponatremia on [facility], 03/01/2018. Normal serum osmolarity, low urine osmolality, low urine sodium, and reduced PO Intake documented over the past several days. Likely hypovolemic with appropriate ADH secretion. * Patient requests minimal blood draws. Will not place IV though if she would tolerate, IV normal saline would be appropriate. * Encourage p.o. hydration. Initiated sodium chloride tablets three times daily with meals. * Stable on [facility] 03/03/2018. Improved on [facility] 03/05/2018. Will check BMP on 03/14 * Discontinue NaCl supplement 03/07/2018 per patient's request. Hypertension: Continue losartan and monitor her blood pressure. BLOOD PRESSURE THIS MORNING 136/64 * Blood pressure increased at times, possibly due to use of ibuprofen and/or NaCl, though generally adequate control. * Added acetaminophen for improved pain control. * Continue to monitor; consider addition of 2nd antihypertensive agent. Urinary retention. Per nursing, last p.m. She was scan for 400 cc with greater than 500 cc after catheterization. This morning scanned for 400 cc with catheterization of 525. Her seems to be some confusion about her self cathing schedule. I have discussed this with the patient and I have recommended that she perform self caths 3 times per day. Will discuss with nursing and have them put appropriate notification on her white board. * She reports a history of urinary retention after a prior procedure years ago. She was able to straight catheterization herself at that time. * Initiated bethanechol and tamsulosin on 03/02/2018; discontinue 03/08/2018 due to lack of efficacy. * Continuing self catheterization training by nursing. * Appears to be resolving 03/10/2018. Wound care: She will have dressing changes over the left residual limb every- other day and if it becomes saturated. 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 This has begun to heal. * Pressure ulcers over left sacrum and left heel. * Continue orders per wound nurse. Cellulitis at amputation incision. 10 days of cephalexin initiated 03/02/2018, after sending photo of incision to surgeon Dr. Schumacher. * Dose adjusted for renal insufficiency per advice of pharmacy, 03/09/2018. Cognitive impairment. * Poor short-term memory noted by therapy staff and nursing. * Improving. Diabetes mellitus type 2: Continue insulin glargine. * Has only recurred rarely required sliding scale insulin during the day; will discontinue blood sugar checks and sliding scale insulin 03/03/2018. Constipation: * All laxatives PRN. Hypoxia and reduced respiratory rate morning of 03/01/2018, resolved Due to opiates?. Hypothyroidism: Continue levothyroxine. * No TSH in the chart since 05/28/2018. Normal TSH 03/02/2018. Heart murmur. She is otherwise without current signs or symptoms of congestive heart failure. * Normal BNP 03/02/2018. She denies history of or current neuropathic pain. Pregabalin discontinued 03/01. She has pantoprazole ordered p.r.n. for acid reflux. She will be monitored for symptoms and will consider treating with calcium carbonate or other p.r.n. medication rather than a proton-pump inhibitor depending on frequency of symptoms and whether or not they are adequately controlled. Prophylaxis: She is at significantly elevated risk for a DVT based on age and major lower extremity amputation. We will initiate enoxaparin 40 mg subcutaneously daily. Optimal duration is unclear and we will research further. With history of peripheral vascular disease and prior use of clopidogrel, it is unclear why she is not on an anti-platelet agent, and this too will be researched further. DISPOSITION: Discharge option is include home of son or daughter. At son's home would need ramp constructed. Also considering assisted living facility. Plan for discharge 03/17/2018. Followup: She is to see Surgeon, Dr. Favian Schumacher after discharge from inpatient rehabilitation. DME: This patient requires a wheelchair. She has a mobility limitation that significantly impairs 1 or more mobility-related ADLs in the home, the functional mobility deficit cannot be resolved with a walker or cane, her home is adequate for accessing rooms, maneuvering space and surfaces, the wheelchair will significantly improve her ability to participate in mobility related ADLs and patient will repeat use it regularly. Patient has not expressed and unwillingness to use the wheelchair and she has sufficient physical and mental ability to safely use the wheelchair. She needs elevated leg rests as she has significant edema in the left lower extremity on which she had a [id number] amputation. She requires a specialty offloading seat cushion due to a sacral decubitus wound. Plan: 03/11/18 11:26 03/12/18 11:46 03/13/18 12:39 Subjective: Denies phantom pain nurses phantom sensations this morning. She has conveyed to her physical therapist that she does have significant residual limb pain. She reports that she is self cathing once or twice per day. Objective: Vital Signs Temp Pulse Resp BP Pulse Ox 36.6 C 68 18 136/64 H 92 03/13/18 05:45 03/13/18 05:45 03/13/18 05:45 03/13/18 09:22 03/13/18 05:45 Laboratory Results 03/05/18 06:00 03/05/18 06:00 03/12/18 03/13/18 03/14/18 05:59 05:59 05:59 Intake Total 900 1330 150 Output Total 125 1825 Balance 775 -495 150 Physical Exam - Physical Exam General Appearance: WD/WN, alert, no apparent distress Respiratory: lungs clear, normal breath sounds Abdomen: normal bowel sounds, non-tender, soft Skin: decubitus (Sacral and left thigh decubiti bandaged, without drainage or erythema at wound margins. Bandages were not removed, however nursing report both her healing well. Left residual limb incision slight erythema at margins without drainage.) Extremities: No swelling, No Curtis's sign (Left residual limb remains tender to light touch.) Neuro/Psych: motor weakness (4/5 left hip flexors and quadriceps.) ICD10 Worksheet Patient Problems: Problems Problem Status Onset Peripheral vascular disease due to secondary diabetes Acute Peripheral vascular disease of extremity with claudication Acute
--- NOTE | 2018-03-13 13:53 | WOCRNPDOC ---
WOCRN Advanced Assessment Note - Skin Integrity Problem, Advanced Assess Left Medial Thigh Dressing Type: Allevyn Life Dressing Description: Clean/Dry, Intact Exudate Amount: Minimal Exudate Color: Red Exudate Characteristic(s): Serosanguinous Integumentary Issue Intervention: Dressing Changed, Dressing Initialed & Dated Brenda Wound Tissue: Blanching Brenda Wound Swelling: None Wound Bed Color: Red Wound Bed Constitution: Granulation Tissue (100%) Wound Edges: Epithelizing Site Odor: None Site Measurement - Head-to-Toe Length X Width X Depth (cm): 0.6x0.3x0.2 Skin Integrity Problem Comment: Dressing removed. Wound improving, prior tunnel no longer present. Packing no longer indicated. Wound gel applied and a new Allevyn life dressing applied. LUL Sharma and Ginette SANDRA in room for care. Wound care will round again next week. Sacrum Pressure Injury Dressing Type: Mepilex Border Dressing Description: Clean/Dry, Intact Exudate Amount: None Integumentary Issue Intervention: Visualized Under Dressing Brenda Wound Tissue: Blanching Wound Bed Constitution: Healed Pressure Injury Stage: Deep Tissue Injury (DTI) Skin Integrity Problem Comment: Deep tissue injury that is now healed. Epithelial tissue intact. Patient educated on leaving the Mepilex sacral dressing in place to prevent trauma to the new epithelial skin. Ginette SANDRA in room for care. Wound care will not be rounding on this wound again. Please re- consult PRN.
[2018-03-13] MEDS: INSULIN GLARGINE 100 UNITS/ML UNIT SC SCH (14:56)
[2018-03-13] MEDS: IBUPROFEN 200 MG TAB PO PRN (16:53)
[2018-03-13] MEDS: SENNOSIDES 1 TAB PO PRN (21:07)
[2018-03-14] MEDS: ACETAMINOPHEN 500 MG TAB PO SCH ×3 (06:04→21:26)
[2018-03-14] MEDS: LEVOTHYROXINE 75 MCG TAB PO SCH (06:05)
[2018-03-14] MEDS: ENOXAPARIN 40 MG/0.4 ML SYR SC SCH (08:18)
[2018-03-14] MEDS: PRESERVISION AREDS2 FORMULA EYE VIT 1 EACH PO SCH (08:20)
[2018-03-14] MEDS: LOSARTAN POTASSIUM 50 MG TAB PO SCH (08:29)
[2018-03-14] MEDS: PRAVASTATIN SODIUM 40 MG TAB PO SCH (08:29)
[2018-03-14] MEDS: GABAPENTIN 100 MG CAP PO SCH ×3 (08:32→21:26)
[2018-03-14] MEDS: CHOLECALCIFEROL VIT D3 1,000 UNITS TAB PO SCH (08:32)
[2018-03-14] MEDS: IBUPROFEN 200 MG TAB PO PRN ×2 (08:32→16:03)
[2018-03-14] MEDS: SENNOSIDES 1 TAB PO PRN (08:38)
[2018-03-14] MEDS: INSULIN GLARGINE 100 UNITS/ML UNIT SC SCH (14:30)
--- NOTE | 2018-03-14 17:06 | SOAPPROG ---
SOAP Progress Note Assessment/Plan: Assessment: Impaired mobility and activities of daily living due to left [id number] amputation: * Initial functional independence measure 69 on 03/03/2018, improved to 85 as of 03/08/2018, and 96 as of 03/13/2018. Progressing to independent for bed to wheelchair transfer as of 03/14/2018. Up and down 4 in curb step with moderate assist. Standby assist for bed mobility, contact guard assist for transfers. Ambulated 30 ft with a front wheeled walker and contact guard assist. Self prpelled wheelchair 150-200 feet needing assistance with ramps. Dressing with modified independence using a device. * Accomplished car transfer to a car today; failed attempt to transfer 2017 to an SUV. * Continue PT and OT to optimize mobility and activities of daily living towards the independent or modified independent level. Pain management: * Discontinued sustained release morphine on 03/02/2018. Has not used any opiates since 03/01/2018. * Continue scheduled acetaminophen 1000 mg q.8 hours starting 03/06/2018, and ibuprofen p.r.n.. * Methocarbamol as needed for muscle spasm. Hyponatremia on [facility], 03/01/2018. Normal serum osmolarity, low urine osmolality, low urine sodium, and reduced PO Intake documented over the past several days. Likely hypovolemic with appropriate ADH secretion. * Patient requests minimal blood draws. Will not place IV though if she would tolerate, IV normal saline would be appropriate. * Encourage p.o. hydration. Initiated sodium chloride tablets three times daily with meals. * Stable on [facility] 03/03/2018. Improved on [facility] 03/05/2018. * Discontinue NaCl supplement 03/07/2018 per patient's request. Hypertension: Continue losartan and monitor her blood pressure. * Blood pressure increased at times, possibly due to use of ibuprofen and/or NaCl, though generally adequate control. * Added acetaminophen for improved pain control. * Continue to monitor; consider addition of 2nd antihypertensive agent. Urinary retention. * She reports a history of urinary retention after a prior procedure years ago. She was able to straight catheterization herself at that time. * Initiated bethanechol and tamsulosin on 03/02/2018; discontinue 03/08/2018 due to lack of efficacy. * Continuing self catheterization training by nursing. * Appears to be resolving 03/10/2018. Wound care: She will have dressing changes over the left residual limb every- other day and if it becomes saturated. 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 This has begun to heal. * Pressure ulcers over left sacrum and left heel. * Continue orders per wound nurse. Cellulitis at amputation incision. 10 days of cephalexin initiated 03/02/2018, after sending photo of incision to surgeon Dr. Schumacher. * Improved, with no signs of infection on exam 03/07/2018. * Dose adjusted for renal insufficiency per advice of pharmacy, 03/09/2018. Cognitive impairment. * Poor short-term memory noted by therapy staff and nursing. * Improving. Diabetes mellitus type 2: Continue insulin glargine. * Has only recurred rarely required sliding scale insulin during the day; will discontinue blood sugar checks and sliding scale insulin 03/03/2018. Constipation: * All laxatives PRN. Hypoxia and reduced respiratory rate morning of 03/01/2018, resolved Due to opiates?. Hypothyroidism: Continue levothyroxine. * No TSH in the chart since 05/28/2018. Normal TSH 03/02/2018. Heart murmur. She is otherwise without current signs or symptoms of congestive heart failure. * Normal BNP 03/02/2018. She denies history of or current neuropathic pain. Pregabalin discontinued 03/01. * Gabapentin initiated per weekend coverage, weekend of 03/04/2018, for symptoms consistent with phantom limb pain. She has pantoprazole ordered p.r.n. for acid reflux. She will be monitored for symptoms and will consider treating with calcium carbonate or other p.r.n. medication rather than a proton-pump inhibitor depending on frequency of symptoms and whether or not they are adequately controlled. Prophylaxis: She is at significantly elevated risk for a DVT based on age and major lower extremity amputation. We will initiate enoxaparin 40 mg subcutaneously daily. Optimal duration is unclear and we will research further. With history of peripheral vascular disease and prior use of clopidogrel, it is unclear why she is not on an anti-platelet agent, and this too will be researched further. DISPOSITION: Discharge option is include home of son or daughter. At son's home would need ramp constructed. Also considering assisted living facility. Plan for discharge 03/17/2018. Followup: She is to see Surgeon, Dr. Favian Schumacher after discharge from inpatient rehabilitation. DME: This patient requires a wheelchair. She has a mobility limitation that significantly impairs 1 or more mobility-related ADLs in the home, the functional mobility deficit cannot be resolved with a walker or cane, her home is adequate for accessing rooms, maneuvering space and surfaces, the wheelchair will significantly improve her ability to participate in mobility related ADLs and patient will repeat use it regularly. Patient has not expressed and unwillingness to use the wheelchair and she has sufficient physical and mental ability to safely use the wheelchair. She needs elevated leg rests as she has significant edema in the left lower extremity on which she had a [id number] amputation. She requires a specialty offloading seat cushion due to a sacral decubitus wound. 03/14/18 16:56 Subjective: No complaints. Sleeping okay and looking for to sleeping better when she gets home. Pain is effectively controlled. She feels her mobility is increased and she is looking forward to going home in few days. Objective: Vital Signs Temp Pulse Resp BP Pulse Ox 36.9 C 71 20 153/72 H 97 03/14/18 06:39 03/14/18 08:24 03/14/18 06:39 03/14/18 08:29 03/14/18 06:39 Laboratory Results 03/05/18 06:00 03/05/18 06:00 03/13/18 03/14/18 03/15/18 05:59 05:59 05:59 Intake Total 1330 425 660 Output Total 1825 1100 Balance -495 -445 660 Physical Exam - Physical Exam General Appearance: WD/WN, alert, no apparent distress Respiratory: No respiratory distress, No accessory muscle use Skin: normal color, warm/dry, other (Saw photos of her incision on the residual limb. It is clean dry and intact with sutures present and no erythema.) Neuro/Psych: no motor/sensory deficits, alert, normal mood/affect, oriented x 3 ICD10 Worksheet Patient Problems: Problems Problem Status Onset Peripheral vascular disease due to secondary diabetes Acute Peripheral vascular disease of extremity with claudication Acute
[2018-03-15] MEDS: LEVOTHYROXINE 75 MCG TAB PO SCH (06:06)
[2018-03-15] MEDS: ACETAMINOPHEN 500 MG TAB PO SCH ×3 (06:06→21:01)
[2018-03-15] MEDS: PRAVASTATIN SODIUM 40 MG TAB PO SCH (08:04)
[2018-03-15] MEDS: LOSARTAN POTASSIUM 50 MG TAB PO SCH (08:04)
[2018-03-15] MEDS: PRESERVISION AREDS2 FORMULA EYE VIT 1 EACH PO SCH (08:04)
[2018-03-15] MEDS: GABAPENTIN 100 MG CAP PO SCH ×3 (08:04→21:01)
[2018-03-15] MEDS: CHOLECALCIFEROL VIT D3 1,000 UNITS TAB PO SCH (08:04)
[2018-03-15] MEDS: ENOXAPARIN 40 MG/0.4 ML SYR SC SCH (08:04)
--- NOTE | 2018-03-15 10:58 | SOAPPROG ---
SOAP Progress Note Assessment/Plan: Assessment: Impaired mobility and activities of daily living due to left [id number]-yaps amputation: * Initial functional independence measure 69 on 03/03/2018, improved to 85 as of 03/08/2018, and 96 as of 03/13/2018. Progressing to independent for bed to wheelchair transfer as of 03/14/2018. Up and down 4 in curb step with moderate assist. Standby assist for bed mobility, contact guard assist for transfers. Ambulated 30 ft with a front wheeled walker and contact guard assist. Self propelled wheelchair 150-200 feet needing assistance with ramps. Dressing with modified independence using a device. * Accomplished car transfer to a car today; failed attempt to transfer 2017 to an SUV. * Continue PT and OT to optimize mobility and activities of daily living towards the independent or modified independent level. Pain management: * Discontinued sustained release morphine on 03/02/2018. Has not used any opiates since 03/01/2018. * Continue scheduled acetaminophen 1000 mg q.8 hours starting 03/06/2018, and ibuprofen p.r.n.. * Methocarbamol as needed for muscle spasm. Hyponatremia on [facility], 03/01/2018. Normal serum osmolarity, low urine osmolality, low urine sodium, and reduced PO Intake documented over the past several days. Likely hypovolemic with appropriate ADH secretion. * Patient requests minimal blood draws. Will not place IV though if she would tolerate, IV normal saline would be appropriate. * Encourage p.o. hydration. Initiated sodium chloride tablets three times daily with meals. * Stable on [facility] 03/03/2018. Improved on [facility] 03/05/2018. * Discontinue NaCl supplement 03/07/2018 per patient's request. Hypertension: Continue losartan and monitor her blood pressure. * Blood pressure increased at times, possibly due to use of ibuprofen and/or NaCl, though generally adequate control. * Added acetaminophen for improved pain control. * Continue to monitor; consider addition of 2nd antihypertensive agent. Urinary retention. * She reports a history of urinary retention after a prior procedure years ago. She was able to straight catheterization herself at that time. * Initiated bethanechol and tamsulosin on 03/02/2018; discontinue 03/08/2018 due to lack of efficacy. * Continuing self catheterization training by nursing. * Appears to be resolving. Wound care: She will have dressing changes over the left residual limb every- other day and if it becomes saturated. 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 This has begun to heal. * Pressure ulcers over left sacrum and left heel. * Continue orders per wound nurse. Cellulitis at amputation incision. 10 days of cephalexin initiated 03/02/2018, after sending photo of incision to surgeon Dr. Schumacher. * Improved, with no signs of infection on exam 03/07/2018. * Dose adjusted for renal insufficiency per advice of pharmacy, 03/09/2018. Cognitive impairment. * Poor short-term memory noted by therapy staff and nursing. * Improving. Diabetes mellitus type 2: Continue insulin glargine. * Has only recurred rarely required sliding scale insulin during the day; will discontinue blood sugar checks and sliding scale insulin 03/03/2018. Constipation: * All laxatives PRN. Hypoxia and reduced respiratory rate morning of 03/01/2018, resolved Due to opiates?. Hypothyroidism: Continue levothyroxine. * No TSH in the chart since 05/28/2018. Normal TSH 03/02/2018. Heart murmur. She is otherwise without current signs or symptoms of congestive heart failure. * Normal BNP 03/02/2018. She denies history of or current neuropathic pain. Pregabalin discontinued 03/01. * Gabapentin initiated per weekend coverage, weekend of 03/04/2018, for symptoms consistent with phantom limb pain. She has pantoprazole ordered p.r.n. for acid reflux. She will be monitored for symptoms and will consider treating with calcium carbonate or other p.r.n. medication rather than a proton-pump inhibitor depending on frequency of symptoms and whether or not they are adequately controlled. Prophylaxis: She is at significantly elevated risk for a DVT based on age and major lower extremity amputation. We will initiate enoxaparin 40 mg subcutaneously daily. Optimal duration is unclear and we will research further. With history of peripheral vascular disease and prior use of clopidogrel, it is unclear why she is not on an anti-platelet agent, and this too will be researched further. DISPOSITION: Discharge option is include home of son or daughter. At son's home would need ramp constructed. Also considering assisted living facility. Plan for discharge 03/17/2018. Followup: She is to see Surgeon, Dr. Favian Schumacher after discharge from inpatient rehabilitation. DME: This patient requires a wheelchair. She has a mobility limitation that significantly impairs 1 or more mobility-related ADLs in the home, the functional mobility deficit cannot be resolved with a walker or cane, her home is adequate for accessing rooms, maneuvering space and surfaces, the wheelchair will significantly improve her ability to participate in mobility related ADLs and patient will repeat use it regularly. Patient has not expressed and unwillingness to use the wheelchair and she has sufficient physical and mental ability to safely use the wheelchair. She needs elevated leg rests as she has significant edema in the left lower extremity on which she had a [id number] amputation. She requires a specialty offloading seat cushion due to a sacral decubitus wound. 03/15/18 10:57 Subjective: Doing well, looking for to going home in 2 days. Notes that wheelchair does not appear to be configured correctly for her with the wheels too far back for her to be able to easily self propel. She reports that wheelchair company will be back in today or tomorrow to adjust or replace. Otherwise without complaints. Objective: Vital Signs Temp Pulse Resp BP Pulse Ox 36.8 C 64 16 131/76 H 95 03/15/18 08:00 03/15/18 08:00 03/15/18 08:00 03/15/18 08:04 03/15/18 08:00 Laboratory Results 03/05/18 06:00 03/05/18 06:00 03/14/18 03/15/18 03/16/18 05:59 05:59 05:59 Intake Total 425 1585 Output Total 1100 1500 Balance -675 85 Physical Exam - Physical Exam General Appearance: WD/WN, alert, no apparent distress Respiratory: normal breath sounds, No crackles, No rhonchi, No wheezing Cardiac/Chest: regular rate, rhythm, No diastolic murmur, No systolic murmur Skin: normal color, warm/dry Neuro/Psych: no motor/sensory deficits, alert, normal mood/affect, oriented x 3 ICD10 Worksheet Patient Problems: Problems Problem Status Onset Peripheral vascular disease due to secondary diabetes Acute Peripheral vascular disease of extremity with claudication Acute
[2018-03-15] MEDS: INSULIN GLARGINE 100 UNITS/ML UNIT SC SCH (14:15)
[2018-03-16] MEDS: ACETAMINOPHEN 500 MG TAB PO SCH ×3 (06:46→21:06)
[2018-03-16] MEDS: LEVOTHYROXINE 75 MCG TAB PO SCH (06:46)
[2018-03-16] MEDS: LOSARTAN POTASSIUM 50 MG TAB PO SCH (08:10)
[2018-03-16] MEDS: GABAPENTIN 100 MG CAP PO SCH ×3 (08:10→21:06)
[2018-03-16] MEDS: PRESERVISION AREDS2 FORMULA EYE VIT 1 EACH PO SCH (08:10)
[2018-03-16] MEDS: ENOXAPARIN 40 MG/0.4 ML SYR SC SCH (08:10)
[2018-03-16] MEDS: CHOLECALCIFEROL VIT D3 1,000 UNITS TAB PO SCH (08:10)
[2018-03-16] MEDS: PRAVASTATIN SODIUM 40 MG TAB PO SCH (08:10)
--- NOTE | 2018-03-16 12:32 | SOAPPROG ---
SOAP Progress Note Assessment/Plan: Assessment: Impaired mobility and activities of daily living due to left [id number] amputation: * Initial functional independence measure 69 on 03/03/2018, improved to 85 as of 03/08/2018, and 96 as of 03/13/2018. Progressing to independent for bed to wheelchair transfer as of 03/14/2018. Up and down 4 in curb step with moderate assist. Standby assist for bed mobility, contact guard assist for transfers. Ambulated 30 ft with a front wheeled walker and contact guard assist. Self propelled wheelchair 150-200 feet needing assistance with ramps. Dressing with modified independence using a device. * Accomplished car transfer to a car 03/15/2018; failed attempt to transfer 2017 to an SUV. * Continue PT and OT to optimize mobility and activities of daily living towards the independent or modified independent level. Pain management: * Discontinued sustained release morphine on 03/02/2018. Has not used any opiates since 03/01/2018. * Continue scheduled acetaminophen 1000 mg q.8 hours starting 03/06/2018, and ibuprofen p.r.n.. * Methocarbamol as needed for muscle spasm. Hyponatremia on [facility], 03/01/2018. Normal serum osmolarity, low urine osmolality, low urine sodium, and reduced PO Intake documented over the past several days. Likely hypovolemic with appropriate ADH secretion. * Patient requests minimal blood draws. Will not place IV though if she would tolerate, IV normal saline would be appropriate. * Encourage p.o. hydration. Initiated sodium chloride tablets three times daily with meals. * Stable on [facility] 03/03/2018. Improved on [facility] 03/05/2018. * Discontinue NaCl supplement 03/07/2018 per patient's request. Hypertension: Continue losartan and monitor her blood pressure. * Elevated blood pressures appear to have resolved and she is no longer taking ibuprofen x2 days. * Added acetaminophen for improved pain control. Urinary retention. * She reports a history of urinary retention after a prior procedure years ago. She was able to straight catheterization herself at that time. * Initiated bethanechol and tamsulosin on 03/02/2018; discontinue 03/08/2018 due to lack of efficacy. * Continuing self catheterization training by nursing. * Appears to be resolving. Wound care: She will have dressing changes over the left residual limb every- other day and if it becomes saturated. 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 This has begun to heal. * Pressure ulcers over left sacrum and left heel, healed.. * Dehiscence of incision on residual limb. Evaluation arranged at Dr. Schumacher' office 03/16/2018. Await recommendations. Cellulitis at amputation incision. S/P 10 days of cephalexin initiated 03/02/2018 , after sending photo of incision to surgeon Dr. Schumacher. * Improved, with no signs of infection on exam 03/07/2018. Subsequently resolved. * Dose adjusted for renal insufficiency per advice of pharmacy, 03/09/2018. Cognitive impairment. * Poor short-term memory noted by therapy staff and nursing. * Improving. Diabetes mellitus type 2: Continue insulin glargine. * Has only recurred rarely required sliding scale insulin during the day; will discontinue blood sugar checks and sliding scale insulin 03/03/2018. Constipation: * All laxatives PRN. Hypoxia and reduced respiratory rate morning of 03/01/2018, resolved Due to opiates?. Hypothyroidism: Continue levothyroxine. * No TSH in the chart since 05/28/2018. Normal TSH 03/02/2018. Heart murmur. She is otherwise without current signs or symptoms of congestive heart failure. * Normal BNP 03/02/2018. She denies history of or current neuropathic pain. Pregabalin discontinued 03/01. * Gabapentin initiated per weekend coverage, weekend of 03/04/2018, for symptoms consistent with phantom limb pain. She has pantoprazole ordered p.r.n. for acid reflux. She will be monitored for symptoms and will consider treating with calcium carbonate or other p.r.n. medication rather than a proton-pump inhibitor depending on frequency of symptoms and whether or not they are adequately controlled. Prophylaxis: She is at significantly elevated risk for a DVT based on age and major lower extremity amputation. We will initiate enoxaparin 40 mg subcutaneously daily. Optimal duration is unclear. Will not continue enoxaparin after discharge on 03/17/2018. DISPOSITION: Discharge option is include home of son or daughter. At son's home would need ramp constructed. Also considering assisted living facility. Plan for discharge 03/17/2018. Followup: She is to see Surgeon, Dr. Favian Schumacher after discharge from inpatient rehabilitation. DME: This patient requires a wheelchair. She has a mobility limitation that significantly impairs 1 or more mobility-related ADLs in the home, the functional mobility deficit cannot be resolved with a walker or cane, her home is adequate for accessing rooms, maneuvering space and surfaces, the wheelchair will significantly improve her ability to participate in mobility related ADLs and patient will repeat use it regularly. Patient has not expressed and unwillingness to use the wheelchair and she has sufficient physical and mental ability to safely use the wheelchair. She needs elevated leg rests as she has significant edema in the left lower extremity on which she had a [id number] amputation. She requires a specialty offloading seat cushion due to a sacral decubitus wound. 03/16/18 17:29 Subjective: No complaints. Nurse notes dehiscence of the wound on the residual limb. Patient denies increased pain, fevers or chills. Objective: Vital Signs Temp Pulse Resp BP Pulse Ox 36.8 C 62 16 124/59 H 97 03/16/18 07:16 03/16/18 07:16 03/16/18 07:16 03/16/18 08:10 03/16/18 07:16 Laboratory Results 03/05/18 06:00 03/05/18 06:00 03/15/18 03/16/18 03/17/18 05:59 05:59 05:59 Intake Total 1585 1480 340 Output Total 1500 1775 Balance 85 -295 340 Physical Exam - Physical Exam General Appearance: WD/WN, alert, no apparent distress Respiratory: No respiratory distress, No accessory muscle use Cardiac/Chest: No edema Skin: normal color, warm/dry, other (Incision on residual limb mostly closed intact, no erythema. Towards the lateral aspect there is approximately a dime- sized area of dehiscence with clean fascia at the base.) Neuro/Psych: no motor/sensory deficits, alert, normal mood/affect, oriented x 3 ICD10 Worksheet Patient Problems: Problems Problem Status Onset Peripheral vascular disease due to secondary diabetes Acute Peripheral vascular disease of extremity with claudication Acute
[2018-03-16] MEDS: INSULIN GLARGINE 100 UNITS/ML UNIT SC SCH (15:06)
[2018-03-16] MEDS: IBUPROFEN 200 MG TAB PO PRN (15:11)
--- NOTE | 2018-03-16 16:20 | PDOREHIP ---
Admission [facility] - Admission - 3 Day Assessment Period Admission Date/Day 1: 02/28/18 Day 2: 03/01/18 Day 3: 03/02/18 Discharge [facility] - Discharge - 3 Day Assessment Period 2 Days Prior to Anticipated Discharge Date: 03/15/18 1 Day Prior to Anticipated Discharge Date: 03/16/18 Anticipated Discharge Date: 03/17/18 - Healed Pressure Ulcer(s) # Stage 1 Pressure Ulcers Present on Admit and Healed on DC: 2 (R heel and sacrum)
[2018-03-17] MEDS: LEVOTHYROXINE 75 MCG TAB PO SCH (06:30)
[2018-03-17] MEDS: ACETAMINOPHEN 500 MG TAB PO SCH (06:30)
[2018-03-17] MEDS: CHOLECALCIFEROL VIT D3 1,000 UNITS TAB PO SCH (08:41)
[2018-03-17] MEDS: LOSARTAN POTASSIUM 50 MG TAB PO SCH (08:42)
[2018-03-17] MEDS: GABAPENTIN 100 MG CAP PO SCH ×2 (08:42→12:02)
[2018-03-17] MEDS: PRAVASTATIN SODIUM 40 MG TAB PO SCH (08:42)
[2018-03-17] MEDS: PRESERVISION AREDS2 FORMULA EYE VIT 1 EACH PO SCH (08:43)
[2018-03-17 08:44] VITALS: BP 130/68
[2018-03-17] MEDS: ENOXAPARIN 40 MG/0.4 ML SYR SC SCH (09:34)
--- NOTE | 2018-03-17 16:11 | GDS ---
[f rep st] DISCHARGE SUMMARY ADMITTING DIAGNOSIS: Debility, status post left [id number]-bre-[id number] amputation. DISCHARGE DIAGNOSIS: Debility, status post left [id number]-ggc-jkjv amputation. OTHER DISCHARGE DIAGNOSES: 1. Hyponatremia. 2. Hypertension. 3. Urinary retention. 4. Diabetes mellitus type 2. CONSULTATIONS: She was seen in consultation by the wound nurse. COMPLICATIONS: None. PROCEDURES: None. HISTORY AND HOSPITAL COURSE: This patient was admitted from [facility]. She had a [id number] amputation on the left leg on February 23, 2018, due to failure of a left femoral to posterior tibial bypass graft. Prior to the amputation there was persistent left heel ulcer pain and difficulty with ambulation. Hospital course was complicated by pain, which was managed with opiate medications, and by urinary retention, for which a Rangel catheter was placed. The catheter was removed on the day of hospital discharge. She did well in rehabilitation. Her initial functional independence measure was 69 on 03/04/2018, which is consistent with snf level of care. She had been able to ambulate 10 feet with a front-wheeled walker and standby assist. She required minimal assist for upper body dressing and minimal to moderate assist for lower body dressing. She needed assistance for bath transfer, toilet transfer, bathing, and toileting. She had significant improvement and on 03/13/2018, 4 days prior to discharge, her functional independence measure had improved to 96, which is consistent with assisted living level of function and almost to independent. She was made independent for bed to wheelchair transfers as of 03/14/2018. She was able to climb and descend a 4-inch curb step with moderate assistance. She required standby assistance for bed mobility and contact guard assist for transfers other than [id number]. She accomplished a car transfer on 03/15/2018. She was ultimately able to ambulate 50 feet with a front-wheeled walker and contact guard to minimal assist to negotiate thresholds. She had poor foot clearance. She was able to self-propel a wheelchair 150 feet or more. She achieved modified independence for grooming and dressing, and for toilet transfer. She continued to require supervision for transfer to a shower bench and intermittent supervision for bathing tasks. She was able to do a meal prep with standby assist while standing, but independently from a wheelchair. She was able to complete laundry tasks with supervision and cues for safety. Pain was initially managed with opiates, but she did not need any opiate medications after 03/01/2018. She had acetaminophen 1000 mg scheduled q.8 hours and intermittent ibuprofen, which she did not use for the last several days before discharge. She had hyponatremia, which was thought to be due to volume depletion. She requested minimal blood draws. She was treated with increased p.o. hydration, as well as sodium chloride tablets. Her hyponatremia improved considerably and the most recent sodium test was 134 on 03/05/2018. At her request, sodium chloride supplements were discontinued on 03/07/2018. Hypertension was well managed on losartan. She had some elevated blood pressures while she was taking ibuprofen, but these resolved when she was no longer using ibuprofen. She had urinary retention in the hospital. She reported history of urinary retention after a prior procedure. She had a trial of bethanechol starting , as well as tamsulosin started the same date. These did not result in improved voiding and were discontinued. She was taught to straight catheterize herself, which she had done previously, and eventually she was beginning to void on her own, though she sometimes had elevated postvoid residuals. Regarding her surgical wound, there was cellulitis, which was treated with antibiotics and resolved. On the day before discharge, she was noted to have dehiscence of the lateral aspect of the surgical wound on the residual limb. She was seen by her surgeon, Dr. Schumacher, who recommended twice daily wet-to-dry dressing changes. She had other wounds including, pressure ulcers over the left sacrum and left heel, which resolved completely during her stay. She had a chronic skin ulcer of the left thigh from her prior surgery and this significantly improved during her stay. Diabetes mellitus type 2 was well managed with only insulin glargine. Regarding hypothyroidism, there was no TSH found on chart review. TSH was tested and was normal on 03/02/2018. She was continued on her admission dose of levothyroxine. She developed phantom limb pain and was titrated on gabapentin with resolution of this symptom. DISCHARGE PLAN: CONDITION UPON DISCHARGE: Good. DISCHARGE DESTINATION: Home to her daughter's house. She will have home health care, including occupational therapy, physical therapy, and a registered nurse for wound care. She is recommended to have a bathroom grab bar, to use a budget director, and to have a 3-in-1 commode, as well as handheld shower and a tub transfer bench. She was using a front-wheeled walker and a wheelchair. DIET: No concentrated carbohydrates, 1800 calories per day, with regular texture and thin liquids. MEDICATIONS ON DISCHARGE: 1. Acetaminophen 650 mg p.o. q.4 hours p.r.n. 2. Aspirin 81 mg p.o. daily for peripheral vascular disease. 3. Cholecalciferol 1000 units p.o. daily. 4. Gabapentin 100 mg twice daily and 200 mg at bedtime. 5. Ibuprofen 200 to 600 mg p.o. q.6 hours p.r.n. 6. Insulin glargine 20 units subcutaneous daily at 1400. 7. Levothyroxine 75 mcg p.o. daily. 8. Losartan 100 mg p.o. daily. 9. Methocarbamol 750 mg p.o. 3 times daily p.r.n. 10. Omeprazole 40 mg p.o. daily. 11. Polyethylene glycol 17 g p.o. daily p.r.n. 12. Pravastatin 40 mg p.o. daily. 13. Senna 1 tab twice daily p.r.n. 14. Ocuvite 1 p.o. daily. ISSUES TO BE ADDRESSED AT FOLLOWUP: 1. Functional status. She will continue PT and OT at home, and can follow up with her primary care provider. 2. Wound dehiscence. She will have nursing at home for wound care and she has follow up with Dr. Favian Schumacher on 03/21/2018. 3. Hypertension is adequately managed. If she is persistently taking ibuprofen , she should have close monitoring. 4. Urinary retention was resolving. She will have nurse visits. It is hoped that she can void normally. If not, she was advised to seek evaluation by a urologist. 5. Chronic conditions of diabetes mellitus, hypothyroidism, and peripheral vascular disease. Continue medications and follow up with primary care provider. /[id number]/MODL MTDD
== END 2018-03-17 13:25 | disposition home health service (06) | DRG 560 ==
LOC: BREH 14:49
PROVIDERS: ADMIT Internal Medicine; ATTEND Internal Medicine
PROC: F07Z5ZZ Bed Mobility Treatment (ICD-10-PCS; principal; 2018-02-28)
PROC: F08Z4ZZ Home Management Treatment (ICD-10-PCS; principal; 2018-02-28)
PROC: F08Z1ZZ Dressing Techniques Treatment (ICD-10-PCS; principal; 2018-02-28)
PROC: F07Z8ZZ Transfer Training Treatment (ICD-10-PCS; principal; 2018-02-28)
PROC: F08Z2ZZ Grooming/Personal Hygiene Treatment (ICD-10-PCS; principal; 2018-02-28)
DX: Z47.81 Encounter for orthopedic aftercare following surgical amputation (principal); Z89.512 Acquired absence of left leg below knee; E11.51 Type 2 diabetes mellitus with diabetic peripheral angiopathy without gangrene; E11.621 Type 2 diabetes mellitus with foot ulcer; L97.129 Non-pressure chronic ulcer of left thigh with unspecified severity; K59.00 Constipation, unspecified; E03.9 Hypothyroidism, unspecified; I10 Essential (primary) hypertension; M81.8 Other osteoporosis without current pathological fracture; T38.0X5A Adverse effect of glucocorticoids and synthetic analogues, initial encounter; M35.3 Polymyalgia rheumatica; Z79.4 Long term (current) use of insulin; E87.1 Hypo-osmolality and hyponatremia; R33.9 Retention of urine, unspecified; G54.6 Phantom limb syndrome with pain; L03.116 Cellulitis of left lower limb; T87.81 Dehiscence of amputation stump
CPT/HCPCS: 97110-GO; 97110-GP; 97112-GP; 97116-GP; 97161-GP; 97166-GO; 97530-GO; 97530-GP; 97535-GO; 97542-GP; 99366-GO; J1650; J1815

== ENCOUNTER 2018-05-09 11:28 | Inpatient (IN) | payer OTHER ==
[~2018-05-09 11:28] MED LIST changes: +CLINDAMYCIN 900 MG/DEXTROSE 50 ML IV ONE; -IOPAMIDOL (ISOVUE 370) 100 ML BTL IV ONE
[2018-05-09] MEDS ORDERED: LIDOCAINE 1% 2 ML INJ ID PRN (11:41)
[2018-05-09] MEDS ORDERED: LR 1,000 ML IV ONE (11:41)
--- NOTE | 2018-05-09 11:56 | PDANEPAE ---
ANE Past Medical History - Cardiovascular History Hx Hypertension: Yes Hx Arrhythmias: No Hx Chest Pain: No Hx Coronary Artery / Peripheral Vascular Disease: Yes Hx CHF / Valvular Disease: No Hx Palpitations: No Cardiovascular History Comment: HYPERLIPIDEMIA - Pulmonary History Hx COPD: No Hx Asthma/Reactive Airway Disease: No Hx Recent Upper Respiratory Infection: No Hx Oxygen in Use at Home: No Hx Sleep Apnea: No Sleep Apnea Screening Result - Last Documented: Negative Pulmonary History Comment: sinus infections - - Neurologic History Hx Cerebrovascular Accident: No Hx Seizures: No Hx Dementia: No - Endocrine History Hx Diabetes: Yes Hypothyroid: Yes Hyperthyroid: No Obesity: no Endocrine History Comment: IDDM type II. overweight - Renal History Hx Renal Disorders: Yes Renal History Comment: hx of UTI's - none recent. 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 POLYMYALGIA RHEUMATICA - Chronic Pain History Chronic Pain: No - Surgical History Prior Surgeries: AMPUTATION 02/23/18. 12/30/17 L FEMORAL-TIBIAL BYPASS. L leg angioplasty Dr Sosa 10-24-17;. Bilat total knees. Appy. Iram. Neck cysts x2 excised. hammer toes -bilat ft. VIDAL,BSO. T and A age 4 ANE Review of Systems Review of Systems: - Exercise capacity Exercise capacity: limited by disability METS (RN): 3 METS ANE Patient History - Allergies Allergies/Adverse Reactions: nitrofurantoin Allergy (Unknown, Unverified 03/16/18 12:35) Vomiting amoxicillin Allergy (Verified 12/27/17 14:43) Vomiting iodine Allergy (Verified 12/27/17 14:43) Other-Enter Comments metformin Allergy (Verified 12/27/17 14:43) Vomiting shellfish derived Allergy (Verified 03/01/18 13:02) Sulfa (Sulfonamide Antibiotics) Allergy (Verified 12/27/17 14:06) Vomiting seafood Allergy (Uncoded 03/01/18 12:46) - Home Medications Home Medications: Cholecalciferol Vit D3 [Vitamin D3 (*)] 1,000 units PO DAILY 10/24/17 [Last Taken 05/08/18] Vit C/E/Zn/Coppr/Lutein/Zeaxan [Ocuvite Lutein & Zeaxanthin Cp] 1 cap PO DAILY 10/24/17 [Last Taken 04/25/18] Omeprazole 40 mg PO DAILY PRN 05/05/18 [Last Taken 05/05/18] - Anes Hx Anes Hx: post operative nausea - Smoking Hx Smoking Status: Never smoked Marijuana use: No - Alcohol Use Alcohol Use: Rarely - Family Anes Hx Family Anes Hx: neg - N/A Family Hx Anesthesia Complications: NONE ANE Labs/Vital Signs - Labs Result Diagrams: 05/09/18 12:04 - Vital Signs Height: 147.32 cm Weight: 55.338 kg ANE Physical Exam - Airway Neck exam: decreased ROM Mallampati Score: Class 2 Mouth exam: normal dental/mouth exam - Pulmonary Pulmonary: no respiratory distress, no rales or rhonchi, clear to auscultation - Cardiovascular Cardiovascular: regular rate and rhythym, no murmur, rub, or gallop - ASA Status ASA Status: III ANE Anesthesia Plan Anesthesia Plan: general endotracheal anesthesia Total IV Anesthesia: No
[2018-05-09] MEDS ORDERED: CLINDAMYCIN 900 MG/DEXTROSE 50 ML IV ONE (12:00)
[2018-05-09] MEDS ORDERED: THROMBIN (BOVINE) 5,000 UNIT VIAL TP ONE (14:29)
[2018-05-09] MEDS ORDERED: CALCIUM CHLORIDE 1 GM/10 ML INJ ONE (14:29)
[2018-05-09] MEDS ORDERED: BUPIVACAINE 0.5% 30 ML SDV ONE (14:54)
[2018-05-09] MEDS: SCOPOLAMINE HYDROBROMIDE 1 MG/3 DAYS PATCH TD SCH (15:07)
[2018-05-09] MEDS ORDERED: fentaNYL 100 MCG/2 ML INJ ONE ×2 (15:16→16:53)
[2018-05-09] MEDS ORDERED: PROPOFOL 200 MG/20 ML VIAL ONE ×2 (15:16→15:32)
[2018-05-09] MEDS ORDERED: RANITIDINE 50 MG/2 ML VIAL ONE (15:17)
[2018-05-09] MEDS ORDERED: ONDANSETRON 4 MG/2 ML VIAL ONE ×3 (15:17→18:04)
[2018-05-09] MEDS ORDERED: ROCURONIUM 50 MG/5 ML VIAL ONE (15:18)
[2018-05-09] MEDS ORDERED: SUCCINYLCHOLINE CHLORIDE 200 MG/10 ML SYR IVP ONE (15:19)
[2018-05-09] MEDS ORDERED: LIDOCAINE 2% 2 ML INJ ONE ×2 (15:20)
[2018-05-09] MEDS ORDERED: ACETAMINOPHEN 500 MG TAB PO PRN (15:57)
[2018-05-09] MEDS ORDERED: PHENYLEPHRINE HCL 100 MCG/ML SYR IVP PRN (15:57)
[2018-05-09] MEDS ORDERED: HYDROCODONE/APAP 5/325 TAB PO PRN (15:57)
[2018-05-09] MEDS ORDERED: LR 500 ML IV PRN (15:57)
[2018-05-09] MEDS ORDERED: NALOXONE HCL 0.4 MG/ML INJ IVP PRN (15:57)
[2018-05-09] MEDS ORDERED: oxyCODONE IR 5 MG TAB PO PRN (15:57)
[2018-05-09] MEDS ORDERED: KETOROLAC 30 MG/1 ML SDV ONE (16:27)
--- NOTE | 2018-05-09 16:56 | POSTANESTH ---
Post Anesthetic Evaluation Cardiovascular Status: Other, See Comment (mild/mod HTN will treat if doesn't decrease after pain med administered) Respiratory Status: Normal, Stable Level of Consciousness/Mental Status: Can Participate in Eval Pain Control: Adequate, Prn Tx Ordered Nausea/Vomiting Control: Adequate, Prn Tx Ordered Complications Possibly Related to Anesthesia: None Noted
[2018-05-09] MEDS: fentaNYL 100 MCG/2 ML INJ IVP PRN ×3 (16:57→17:16)
[2018-05-09] MEDS: LABETALOL HCL 5 MG/ML 20 ML MDV IVP PRN ×3 (17:00→17:37)
[2018-05-09] MEDS ORDERED: LABETALOL HCL 5 MG/ML 20 ML MDV ONE (17:02)
[2018-05-09] MEDS ORDERED: HYDROmorphONE/DILAUDID 1 MG/ML INJ IVP PRN (17:24)
[2018-05-09] MEDS ORDERED: ONDANSETRON 4 MG/2 ML VIAL IVP PRN (17:24)
[2018-05-09] MEDS: ONDANSETRON 4 MG/2 ML VIAL IVP PRN ×2 (17:55→18:07)
[2018-05-09] MEDS ORDERED: PROMETHAZINE HCL 25 MG/ML INJ ONE (18:18)
[2018-05-09] MEDS ORDERED: PROMETHAZINE HCL 25 MG/ML INJ IVP ONE (18:30)
--- NOTE | 2018-05-09 19:05 | SOAPPROG ---
SOAP Progress Note Assessment/Plan: Assessment: POSTOP DOING WELL/DRESSING INTACT/ SOME MINOR NAUSEA Plan: REHAB EVALUATION IN THE A.M. 05/09/18 19:04 Objective: Vital Signs Temp Pulse Resp BP Pulse Ox 36.7 C 68 16 176/97 H 100 05/09/18 17:48 05/09/18 17:15 05/09/18 18:31 05/09/18 18:31 05/09/18 18:31 Laboratory Results 05/09/18 12:04 05/08/18 05/09/18 05/10/18 05:59 05:59 05:59 Intake Total 1500 Output Total 35 Balance 1465 ICD10 Worksheet Patient Problems: Problems Problem Status Onset Peripheral vascular disease due to secondary diabetes Acute Peripheral vascular disease of extremity with claudication Acute
[2018-05-09] MEDS: DOCUSATE SODIUM 100 MG CAP PO SCH (20:27)
[2018-05-09] MEDS: NS 1,000 ML IV SCH (20:54)
[2018-05-09] MEDS: OXYCODONE/APAP 5/325 TAB PO PRN ×2 (21:30→22:24)
[2018-05-10] MEDS: OXYCODONE/APAP 5/325 TAB PO PRN ×2 (06:02→21:00)
[2018-05-10] MEDS: ENOXAPARIN 40 MG/0.4 ML SYR SC SCH (08:33)
[2018-05-10] MEDS: DOCUSATE SODIUM 100 MG CAP PO SCH ×2 (08:33→21:00)
[2018-05-10] MEDS ORDERED: POLYETHYLENE GLYCOL 3350 17 GM PKT PO PRN (08:34)
[2018-05-10] MEDS ORDERED: ACETAMINOPHEN 325 MG TAB PO PRN (08:34)
[2018-05-10] MEDS ORDERED: SENNOSIDES 1 TAB PO PRN (08:34)
[2018-05-10] MEDS ORDERED: METHOCARBAMOL 750 MG TAB PO PRN (08:34)
[2018-05-10] MEDS ORDERED: PANTOPRAZOLE SODIUM 40 MG TAB PO PRN (09:00)
[2018-05-10] MEDS: LOSARTAN POTASSIUM 50 MG TAB PO SCH (10:05)
[2018-05-10] MEDS: CHOLECALCIFEROL VIT D3 1,000 UNITS TAB PO SCH (10:05)
[2018-05-10] MEDS: PRAVASTATIN SODIUM 40 MG TAB PO SCH (10:05)
[2018-05-10] MEDS: LEVOTHYROXINE 75 MCG TAB PO SCH (10:07)
--- NOTE | 2018-05-10 11:03 | PDMN ---
Medical Necessity Medical necessity: [facility] IP only surgery; cpt 35205 BKA Revision
[2018-05-10] MEDS: NS 1,000 ML IV SCH (11:24)
--- NOTE | 2018-05-10 11:56 | SOAPPROG ---
SOAP Progress Note Assessment/Plan: Assessment/Plan: 83 Y F s/p BKA revision, POD#1. Doing well. Pain controlled. Tolerating diet. Wounds well dressed. Plan for dressing change tomorrow. Dispo: likely tomorrow. Patient planning to go home with family. Has already completed time in rehab. She feels independent, and transferring well per aide, but could consider PT. S: just used bathroom. feels like she will be ready to go home tomorrow. O: alert, nad ctab rrr abd soft wound well dressed, no saturation. 05/10/18 11:53 Objective: Vital Signs Temp Pulse Resp BP Pulse Ox 37 C 82 16 141/56 H 99 05/10/18 11:51 05/10/18 11:51 05/10/18 11:51 05/10/18 11:51 05/10/18 11:51 Microbiology 05/09/18 15:48 Gram Stain - Final Knee - Tissue Laboratory Results 05/10/18 05:25 05/10/18 05:25 05/09/18 05/10/18 05/11/18 05:59 05:59 05:59 Intake Total 2600 Output Total 135 Balance 2465 ICD10 Worksheet Patient Problems: Problems Problem Status Onset Peripheral vascular disease due to secondary diabetes Acute Peripheral vascular disease of extremity with claudication Acute
--- NOTE | 2018-05-10 13:14 | CPEKG ---
Test Reason : OPEN Blood Pressure : / mmHG Vent. Rate : 070 BPM Atrial Rate : 070 BPM P-R Int : 176 ms QRS Dur : 123 ms QT Int : 438 ms P-R-T Axes : 039 -50 034 degrees QTc Int : 473 ms Sinus rhythm Nonspecific IVCD with LAD Left ventricular hypertrophy Confirmed by Florentino Pretty ([id number]) on 05/10/2018 1:14:35 PM Referred By: Confirmed By:Florentino Pretty
[2018-05-10] MEDS: INSULIN GLARGINE 100 UNITS/ML UNIT SC SCH (13:58)
[2018-05-10] MEDS ORDERED: INSULIN GLARGINE HUM REC ANLOG 20 UNIT SC SCH (14:00)
--- NOTE | 2018-05-10 15:23 | ASMTCMCOM ---
CM Note CM Note Notes: Pt admitted for infected limb from previous BKA, had surgery today. PT/OT to eval pt, CM spoke w/pt and dtr Edith, if pt needs rehab they would like [facility] if needs homecare she has used [facility]. CM to follow for recommendations. DC Plan: TBD Date Signed: 05/10/2018 03:22 PM Electronically Signed By:Jessica Garcia RN
[2018-05-10] MEDS: IBUPROFEN 200 MG TAB PO PRN (17:24)
--- NOTE | 2018-05-10 22:08 | GOP ---
[f rep st] OPERATIVE REPORT DATE OF OPERATION: 05/09/2018 SURGEON: Favian Schumacher MD PREOPERATIVE DIAGNOSIS: Peripheral vascular disease and ischemic ulcers on a below-knee amputation s tump. POSTOPERATIVE DIAGNOSIS: Peripheral vascular disease and ischemic ulcers on a below-knee amputation stump. PROCEDURE PERFORMED: Left below-knee amputation revision with bone shortening. FINDINGS: The patient was found to have necrotic muscle on the lateral aspect of the lower flap. Th ere was no evidence of significant infection. ESTIMATED BLOOD LOSS: Negligible. Taken to recovery room in good condition. DESCRIPTION OF PROCEDURE: Patient taken to the operating room, where she received satisfactory gener al endotracheal anesthesia by Dr. Schneider. She was placed in supine position, prepped and draped in usual sterile fashion. A necrotic area on the stump was sharply debrided back to good bleeding t issue. The necrotic muscles were trimmed back to pinker better muscle. Hemostasis was obtained with electrocautery and 3-0 Vicryl suture ligatures. The old incision was opened. The tibia was shorten ed by approximately 1 inch after cleaning it off with an elevator. The posterior flap skin edges wer e debrided, and it was folded back up over the tibial stump and secured in place with 0 Vicryl interr upted sutures. Wound was infiltrated with 0.5% Marcaine. Some platelet-rich plasma was placed in th e wound as well. Subcu was closed with interrupted 2-0 Vicryl sutures in the skin with skin jonathan and 3-0 Prolene mattress sutures. She tolerated the procedure well. There were no complications. /[id number]/MODL
[2018-05-11] MEDS: LEVOTHYROXINE 75 MCG TAB PO SCH (04:52)
[2018-05-11] MEDS: IBUPROFEN 200 MG TAB PO PRN ×5 (05:28→19:45)
[2018-05-11] MEDS: PRAVASTATIN SODIUM 40 MG TAB PO SCH (09:18)
[2018-05-11] MEDS: LOSARTAN POTASSIUM 50 MG TAB PO SCH (09:18)
[2018-05-11] MEDS: DOCUSATE SODIUM 100 MG CAP PO SCH ×2 (09:19→20:27)
[2018-05-11] MEDS: CHOLECALCIFEROL VIT D3 1,000 UNITS TAB PO SCH (09:19)
[2018-05-11] MEDS: ENOXAPARIN 40 MG/0.4 ML SYR SC SCH (09:19)
--- NOTE | 2018-05-11 10:31 | SOAPPROG ---
SOAP Progress Note Assessment/Plan: Assessment: 83 Y F s/p BKA revision, POD#2 S: No complaints. Pain under control. O: Alert, NAD Afebrile No increased WOB RLE: incision cdi. Full ROM in knee. Plan: Doesn't quite feel she is ready to go home just yet. Has gone to rehab in the past and would like to go home instead this time. Daughter will be at home to help care for her. Plan for discharge tomorrow. 05/11/18 10:29 Objective: Vital Signs Temp Pulse Resp BP Pulse Ox 36.9 C 70 16 143/63 H 99 05/11/18 08:00 05/11/18 08:00 05/11/18 08:00 05/11/18 09:18 05/11/18 08:00 Microbiology 05/09/18 15:48 Gram Stain - Final Knee - Tissue Laboratory Results 05/10/18 05:25 05/10/18 05:25 05/10/18 05/11/18 05/12/18 05:59 05:59 05:59 Intake Total 2600 1572 Output Total 135 Balance 2465 1572 ICD10 Worksheet Patient Problems: Problems Problem Status Onset Peripheral vascular disease due to secondary diabetes Acute Peripheral vascular disease of extremity with claudication Acute
--- NOTE | 2018-05-11 10:49 | WOCRNPDOC ---
WOCRN Advanced Assessment Note - Skin Integrity Problem, Advanced Assess Sacrum Dressing Type: Open to Air Exudate Amount: None Brenda Wound Tissue: Blanching, Intact Wound Bed Color: [place] Skin Integrity Problem Comment: Patient rolled to her left side unaided. Patient was able to tell me that she has a history of a wound to this area but that it is now "healed". The skin to the sacrum is intact and pink but remains blanching. Wound care will not continue to follow this wound.
[2018-05-11] MEDS: INSULIN GLARGINE 100 UNITS/ML UNIT SC SCH (15:29)
--- NOTE | 2018-05-11 16:17 | ASMTCMCOM ---
CM Note CM Note Notes: CM met with Pt and her daughter, Edith. Per Edith, her mother is always supervised by either herself or her sister, with the exception of 1-3 hours a day. She always sleeps with one of her daughters present in the home. Pt's home is not accessible to her without one of her daughters as there are steps leading into the home from the front porch and garage. They have asked the landlord to install bars/ramp, but this has not occured yet. Pt vascillated between being lucid and being confused. Edith shared that normally her mother is quite lucid and is concerned about her present confusion. This information was passed onto her nurse, Rita. PT has recommended SNF Rehab. The Pt is ambivelent, but seems to be leaning towards it. A referral will be placed for [facility] where she has previously been. CM will follow. Pt has been using [facility]. She may want to change to use [facility] due to past scheduling difficulties with [facility]. D/C Plan: Home with home care through [facility] or [facility] and possibly a stay at [facility]. Date Signed: 05/11/2018 04:16 PM Electronically Signed By:Cassandra Eric
[2018-05-12] MEDS: LEVOTHYROXINE 75 MCG TAB PO SCH (07:17)
--- NOTE | 2018-05-12 07:19 | SOAPPROG ---
SOAP Progress Note Assessment/Plan: Assessment: POSTOP DOING WELL/DRESSING INTACT/ SOME MINOR NAUSEA Plan: REHAB EVALUATION IN THE A.M. 05/09/18 19:04 05/12/18 07:18 COMFORTABLE/ AFEBRILE/ STUMP OK/ HOME TODAY Objective: Vital Signs Temp Pulse Resp BP Pulse Ox 36.6 C 75 16 128/76 H 97 05/12/18 00:00 05/12/18 00:00 05/12/18 00:00 05/12/18 00:00 05/12/18 00:00 Microbiology 05/09/18 15:48 Gram Stain - Final Knee - Tissue Laboratory Results 05/10/18 05:25 05/10/18 05:25 05/11/18 05/12/18 05/13/18 05:59 05:59 05:59 Intake Total 1572 400 Balance 1572 400 ICD10 Worksheet Patient Problems: Problems Problem Status Onset Peripheral vascular disease due to secondary diabetes Acute Peripheral vascular disease of extremity with claudication Acute
[2018-05-12] MEDS: LOSARTAN POTASSIUM 50 MG TAB PO SCH (09:02)
[2018-05-12] MEDS: DOCUSATE SODIUM 100 MG CAP PO SCH ×2 (09:03→20:01)
[2018-05-12] MEDS: IBUPROFEN 200 MG TAB PO PRN ×2 (09:03→15:21)
[2018-05-12] MEDS: CHOLECALCIFEROL VIT D3 1,000 UNITS TAB PO SCH (09:03)
[2018-05-12] MEDS: PRAVASTATIN SODIUM 40 MG TAB PO SCH (09:03)
[2018-05-12] MEDS: ENOXAPARIN 40 MG/0.4 ML SYR SC SCH (09:04)
--- NOTE | 2018-05-12 09:28 | ASMTLACE ---
LACE Length of stay for Answers: 1 day current admission Acuity / Level of Answers: Yes Care: Did the patient have an inpatient admission? Comorbidities - select Answers: Diabetes (uncontrolled or all that apply controlled) Peripheral vascular disease Other Notes: HTN; HLD; GERD # of Emergency department Answers: 0 visits in the last 6 months Score: 7 Date Signed: 05/12/2018 09:27 AM Electronically Signed By:Cassandra Eric
--- NOTE | 2018-05-12 09:36 | ASMTCMCOM ---
CM Note CM Note Notes: CM spoke with Pt's daughter, Edith. [facility], paperwork has been sent via [employer] and [facility] will be calling with a time for pick-up. D/C Plan: [facility] Date Signed: 05/12/2018 09:35 AM Electronically Signed By:Cassandra Eric
[2018-05-12] MEDS ORDERED: PATCH REMOVAL 1 EA PATCH TD SCH (15:01)
[2018-05-12] MEDS: INSULIN GLARGINE 100 UNITS/ML UNIT SC SCH (15:22)
[2018-05-12] MEDS: SCOPOLAMINE HYDROBROMIDE 1 MG/3 DAYS PATCH TD SCH (15:25)
[2018-05-13] MEDS: LEVOTHYROXINE 75 MCG TAB PO SCH (07:52)
[2018-05-13] MEDS: DOCUSATE SODIUM 100 MG CAP PO SCH (10:07)
[2018-05-13] MEDS: LOSARTAN POTASSIUM 50 MG TAB PO SCH (10:07)
[2018-05-13] MEDS: ENOXAPARIN 40 MG/0.4 ML SYR SC SCH (10:07)
[2018-05-13] MEDS: PRAVASTATIN SODIUM 40 MG TAB PO SCH (10:07)
[2018-05-13] MEDS: CHOLECALCIFEROL VIT D3 1,000 UNITS TAB PO SCH (10:07)
[2018-05-13 11:06] VITALS: BP 105/67
--- NOTE | 2018-05-13 11:20 | PDIAF ---
- Diagnosis Diagnosis: BKA revision Code Status: Full Code - Medication Management Discharge Medications: Medications to Continue on Transfer Cholecalciferol Vit D3 [Vitamin D3 (*)] 1,000 units PO DAILY 10/24/17 [Last Taken 05/08/18] Vit C/E/Zn/Coppr/Lutein/Zeaxan [Ocuvite Lutein & Zeaxanthin Cp] 1 cap PO DAILY 10/24/17 [Last Taken 04/25/18] Acetaminophen [Tylenol 325mg (*)] 650 mg PO Q4HRS PRN tab 02/28/18 [Last Taken 04/25/18] Ibuprofen [Motrin (*)] 200 - 600 mg PO Q6 PRN tab 02/28/18 [Last Taken 04/25/18 ] Insulin Glargine,Hum.rec.anlog [Lantus Solostar] 20 units SC DAILY@1400 #1 btl 03/16/18 [Last Taken 05/08/18 13:30] Levothyroxine Sodium 75 mcg PO DAILY #30 tablet 03/16/18 [Last Taken 05/09/18 08 :00] Losartan Potassium 100 mg PO DAILY #30 tablet 03/16/18 [Last Taken 05/09/18 08: 00] Methocarbamol [Robaxin 750 mg (*)] 750 mg PO TID PRN #15 tab 03/16/18 [Last Taken 04/25/18] Polyethylene Glycol 3350 [Miralax 17 gm (*)] 17 gm PO DAILY PRN pkt 03/16/18 [ Last Taken 04/25/18] Pravastatin Sodium 40 mg PO DAILY #30 tablet 03/16/18 [Last Taken 04/25/18] Sennosides [Senokot] 1 tab PO BID PRN tab 03/16/18 [Last Taken 04/25/18] Omeprazole 40 mg PO DAILY PRN 05/05/18 [Last Taken 05/05/18] oxyCODONE/APAP 5/325 [Percocet 5/325 (*)] 1 - 2 tab PO Q4 PRN #20 tab 05/12/18 [ Last Taken Unknown] Discharge Medications: Refer to the Discharge Home Medication list for PRN reason. - Orders Services needed: Registered Nurse, Physical Therapy, Occupational Therapy Diet Recommendation: no restrictions on diet Diet Texture: Regular Texture Diet Additional Instructions: You may shower, but do not soak in a pool or tub. Rx for percocet for pain. You can take ibuprofen as well. Take a stool softener to avoid constipation. Call to make a follow up appointment for one week from now. Call with fever, chills, or increased pain. - Follow Up Care Current Providers and Referrals: Favian Schumacher MD [Medical Doctor] - follow up in 1 week Jaylene Javed DO [Primary Care Provider] -
--- NOTE | 2018-05-13 11:52 | ASDISCHSUM ---
Discharge Information Plan Status:SNF Medically Cleared to Leave:05/13/2018 Discharge Date:05/13/2018 CM D/C Disposition:Correction Facility ADT D/C Disposition:Correction Facility Projected Discharge Date:05/13/2018 11:00 AM Transportation at D/C:Wheelchair Van Discharge Delay Reason: Follow-Up Date:05/13/2018 11:00 AM Discharge Slot: Final Diagnosis: Placement Information Referral Type:*Home Health Care Services Referral ID:[id number] Provider Name: Address 1: Phone Number: Address 2: Fax Number: City: Selection Factors: State: Referral Type:*Shelter/SNF Referral ID:[id number] Provider Name:[facility] Address 1:[facility] Address 2: City:[place] Selection Factors: State:[place] Patient Contact Information Contact Name:DORA Relationship:Daughter Address: Work Phone: City: [facility] Phone: [facility] Code: Email: Financial Information Financial Class:Medicare Primary Plan Desc:MEDICARE INPATIENT Primary Plan Number:[id number] Secondary Plan Desc:[facility] Secondary Plan Number:[id number] Assessment Information LACE LACE Length of stay for Answers: 1 day current admission Acuity / Level of Answers: Yes Care: Did the patient have an inpatient admission? Comorbidities - select Answers: Diabetes (uncontrolled or all that apply controlled) Peripheral vascular disease Other Notes: HTN; HLD; GERD # of Emergency department Answers: 0 visits in the last 6 months Score: 7 Date Signed: 05/12/2018 09:27 AM Electronically Signed By:Cassandra Eric [facility] CM Progress Note CM Note CM Note Notes: Pt admitted for infected limb from previous BKA, had surgery today. PT/OT to justyn pt, CM spoke w/pt and dtr Edith, if pt needs rehab they would like [facility] if needs homecare she has used [facility]. CM to follow for recommendations. DC Plan: TBD Date Signed: 05/10/2018 03:22 PM Electronically Signed By:Jessica Garcia RN [facility] Progress Note CM Note CM Note Notes: CM met with Pt and her daughter, Edith. Per Edith, her mother is always supervised by either herself or her sister, with the exception of 1-3 hours a day. She always sleeps with one of her daughters present in the home. Pt's home is not accessible to her without one of her daughters as there are steps leading into the home from the front porch and garage. They have asked the landlord to install bars/ramp, but this has not occured yet. Pt vascillated between being lucid and being confused. Edith shared that normally her mother is quite lucid and is concerned about her present confusion. This information was passed onto her nurse, Rita. PT has recommended SNF Rehab. The Pt is ambivelent, but seems to be leaning towards it. A referral will be placed for [facility] where she has previously been. CM will follow. Pt has been using [facility]. She may want to change to use [facility] due to past scheduling difficulties with [facility]. D/C Plan: Home with home care through [facility] or [facility] and possibly a stay at [facility]. Date Signed: 05/11/2018 04:16 PM Electronically Signed By:Cassandra Eric [facility] CM Progress Note CM Note CM Note Notes: CM spoke with Pt's daughter, Edith. Pt will be going to [facility]. [facility] has accepted, paperwork has been sent via [employer] and [facility] will be calling with a time for pick-up. D/C Plan: [facility] Date Signed: 05/12/2018 09:35 AM Electronically Signed By:Cassandra Eric Intervention Information Intervention Type:*IM-Signed Date of Service:05/12/2018 02:46 PM Patient Type:Inpatient Staff Member:Celsa Figueroa Hours: Discipline: Severity: Comment:
--- NOTE | 2018-05-13 13:51 | ASMTDCNOTE ---
Case Management Discharge Discharge Order Complete? Answers: Yes Patient to Obtain Answers: Other Notes: [facility] Medications Transportation Arranged Answers: Other Notes: [facility] will Pick (Date 05/13/2018 02:00 PM & Time) Faxed Final Orders Answers: Yes Agency/Facility Transfer Answers: Yes Report Printed & Faxed to Receiving Agency Family Notified Answers: Yes Discharge Comments Notes: Pt is ready for d/c today. D/C order, meds and Facility transfer sent via [employer]. Transportation set up by Kaelyn at [facility] through [facility]. Date Signed: 05/13/2018 01:50 PM Electronically Signed By:MARK Brown
== END 2018-05-13 14:18 | DRG 464 ==
LOC: F3E 11:28 → OBSVTOIN 05-10 10:54 → UNDODISIN 05-12 11:17
PROVIDERS: ADMIT Surgery; ATTEND Surgery
PROC: 0QBH0ZZ Excision of Left Tibia, Open Approach (ICD-10-PCS; principal; 2018-05-09 12:45)
PROC: 0JBP0ZZ Excision of Left Lower Leg Subcutaneous Tissue and Fascia, Open Approach (ICD-10-PCS; principal; 2018-05-09 12:45)
DX: T87.54 Necrosis of amputation stump, left lower extremity (principal); L97.923 Non-pressure chronic ulcer of unspecified part of left lower leg with necrosis of muscle; E11.51 Type 2 diabetes mellitus with diabetic peripheral angiopathy without gangrene; I10 Essential (primary) hypertension; E78.5 Hyperlipidemia, unspecified; N31.9 Neuromuscular dysfunction of bladder, unspecified; K44.9 Diaphragmatic hernia without obstruction or gangrene
CPT/HCPCS: 92507-GN; 92523-GN; 97161-GP; 97165-GO; 97530-GP; 97535-GO; G8978-GP-CL; G8979-GP-CK; G8987-GO-CK; G8988-GO-CI; G8989-GO-CI; G9168-GN-CK; G9169-GN-CJ; J0330; J1650; J1815; J1885; J2270; J2405; J2550; J2704; J2780; J3010